=== PATIENT | female | born 1945 | race Caucasian/White ===

== ENCOUNTER 2020-05-31 08:22 | Outpatient (REF) | payer MEDICARE, SELFPAY ==
[2020-05-31 10:17] LABS: MANUAL DIFF FLAG NO
[2020-05-31 10:32] LABS: Basophils Percent Auto 0.4 % (0-2); Eosinophils Absolute Auto 0.8 X10*3/uL (0.0-0.4); Eosinophils Percent Auto 11.3 % (0-4); Hemoglobin 11.2 g/dl (12.0-16.0); Imm Gran Abs Auto 0.02 X10*3/uL (0.00-0.03); Imm Gran Pct Auto 0.3 % (0.0-0.4); Lymphocytes Absolute Auto 1.2 X10*3/uL (1.2-4.9); Lymphocytes Percent Auto 18.1 % (20-40); Mean Corpuscular Hemoglobin 29.3 pg (27.0-33.0); Mean Corpuscular Volume 91.6 fL (80-98); Mean Platelet Volume 10.1 fL (9.4-12.3); Monocytes Absolute Auto 0.5 X10*3/uL (0.1-1.2); Monocytes Percent Auto 7.4 % (2-11); Neutrophils Absolute Auto 4.2 X10*3/uL (2.0-8.3); Neutrophils Percent Auto 62.5 % (45-73); Platelet Count 265 X10*3/uL (160-400); Red Blood Count 3.82 X10*6/uL (4.20-5.50); Red Cell Distribution Width 14.2 % (11.0-16.0); White Blood Count 6.7 X10*3/uL (4.8-10.8)
[2020-05-31 11:17] LABS: Alanine Aminotransferase 14 U/L (0-31); Alkaline Phosphatase 78 U/L (39-117); Anion Gap 8 (12-20); Aspartate Amino Transferase 15 U/L (5-31); Bilirubin Total 0.6 mg/dL (0.0-1.0); Blood Urea Nitrogen 21 mg/dL (9-16); Calcium 9.3 mg/dL (8.4-10.2); Carbon Dioxide 34 mmol/L (22-29); Chloride 102 mmol/L (96-108); Cholesterol 133 mg/dL; Estimated Glomerular Filt Rate > 60; Glucose Fasting 101 mg/dL (60-99); HDL Cholesterol 40 mg/dL; LDL Cholesterol Calculated 68 mg/dl; Sodium 139 mmol/L (135-145); Total Protein 7.1 g/dL (6.5-8.0); Triglycerides 125 mg/dL
== END 2020-05-31 08:23 | disposition home or self-care (01) ==
LOC: CF 08:22
PROVIDERS: PCP Internal Medicine; Referring Provider Internal Medicine; Visit Provider Nurse Practitioner Family
DX: I48.0 Paroxysmal atrial fibrillation (principal); I10 Essential (primary) hypertension; E78.5 Hyperlipidemia, unspecified
CPT/HCPCS: 36415; 80053; 80061; 85025; 99214

== ENCOUNTER 2022-01-08 09:43 | Outpatient (REF) | payer MEDICARE, SELFPAY ==
[2022-01-08 12:15] LABS: Hematocrit 32.4 % (37.0-47.0); Hemoglobin 10.3 g/dl (12.0-16.0); Mean Corpuscular HGB Conc 31.8 g/dl (31.0-35.0); Mean Corpuscular Hemoglobin 29.7 pg (27.0-33.0); Mean Corpuscular Volume 93.4 fL (80.0-98.0); Platelet Count 257 X10*3/uL (160-400); Red Blood Count 3.47 X10*6/uL (4.20-5.50); Red Cell Distribution Width 13.7 % (11.0-16.0); White Blood Count 7.7 X10*3/uL (4.8-10.8)
[2022-01-08 13:00] LABS: Anion Gap 11 (12-20); Blood Urea Nitrogen 13 mg/dL (9-16); Calcium 8.9 mg/dL (8.4-10.2); Carbon Dioxide 28 mmol/L (22-29); Chloride 106 mmol/L (96-108); Estimated Glomerular Filt Rate > 60; Glucose Random 87 mg/dL (60-115); Sodium 140 mmol/L (135-145)
== END 2022-01-08 09:44 | disposition home or self-care (01) ==
LOC: HO.LAB 09:43
PROVIDERS: PCP Internal Medicine; Referring Provider Internal Medicine; Visit Provider Internal Medicine Cardiovascular Disease
DX: I48.0 Paroxysmal atrial fibrillation (principal); I73.9 Peripheral vascular disease, unspecified; I10 Essential (primary) hypertension
CPT/HCPCS: 36415; 80048; 85027; 93005; 99212

== ENCOUNTER → 2022-01-21 12:21 | Outpatient (BNV) | payer MEDICARE, SELFPAY | PROVIDERS: PCP Internal Medicine; Referring Provider Internal Medicine Cardiovascular Disease; Visit Provider Internal Medicine | DX: D64.9 Anemia, unspecified (principal) | CPT/HCPCS: 99204; 99213; 99214; G2211 ==

== ENCOUNTER 2022-02-20 12:24 | Outpatient (REF) | payer MEDICARE, SELFPAY ==
--- NOTE | ~2022-02-20 | US_ITS ---
EXAMINATION: Noninvasive assessment of the bilateral lower extremities with ARTERIAL DUPLEX ? CLINICAL INFORMATION: Peripheral vascular disease ? TECHNIQUE: Duplex Doppler techniques with waveform analysis and measurement of velocities in the bilateral common femoral, profunda femoris, superficial femoral, popliteal and tibial arteries were performed. ? COMPARISON: None ? FINDINGS: ? DIRECT DUPLEX DOPPLER FINDINGS: ? RIGHT LEG: Common femoral artery:?134 cm/s, phasicity: Biphasic Profunda femoris artery:??105 cm/s, phasicity: Biphasic Superficial femoral artery (proximal):?114 cm/s, phasicity: Biphasic Superficial femoral artery (mid):?161 cm/s, phasicity: Biphasic. Mild calcified plaque Superficial femoral artery (distal):?168 cm/s, phasicity: Biphasic Popliteal artery:?94.3 cm/s, phasicity: Biphasic Posterior tibial artery:?99 cm/s, phasicity: Biphasic Peroneal artery:?69.9 cm/s, phasicity: Biphasic ? LEFT LEG: Common femoral artery:?152 cm/s, phasicity: Biphasic Profunda femoris artery:?78?cm/s, phasicity: Biphasic Superficial femoral artery (proximal):?135?cm/s, phasicity: Biphasic Superficial femoral artery (mid):?165 cm/s, phasicity: Biphasic Superficial femoral artery (distal):?137?cm/s, phasicity: Biphasic Popliteal artery:?84.9?cm/s, phasicity: Biphasic. Mild calcified plaque Posterior tibial artery:?132?cm/s, phasicity: Biphasic Peroneal artery:?208 cm/s, phasicity: Biphasic Other: Hypoechoic areas seen in the deep to the femoral vessels likely representing an inguinal hernia with fluid ? ? US/US arterial duplex LE BI IMPRESSION: ? Patent arterial flow with normal velocities and waveforms throughout the bilateral lower extremities. Scattered areas of mild calcified plaque seen. No significant arterial stenosis or occlusion
== END 2022-02-20 12:25 | disposition home or self-care (01) ==
LOC: HO.US 12:24
PROVIDERS: Visit Provider Internal Medicine Cardiovascular Disease
DX: I73.9 Peripheral vascular disease, unspecified (principal); I25.10 Atherosclerotic heart disease of native coronary artery without angina pectoris
CPT/HCPCS: 93925

== ENCOUNTER → 2023-01-02 13:05 | Outpatient (REF) | payer MEDICARE, SELFPAY ==
--- NOTE | 2023-01-02 13:09 | CA_ITS ---
Transthoracic Echocardiogram Patient (Last, First, Middle): Millie Kimball, Gender: Female Date of : 1945 Age: 77 Procedure Date: 01/02/2023 Procedure Type: Transthoracic Echocardiogram Location: OP Height: 154.94 cm Weight: 61.24 kg BSA: 1.60 m2 Heart Rate: 63 bpm BP: 115 / 70 mmHg Law Clerk: JERAMIE Referring MD: Don Chao MD Symptoms: I48.0 - Paroxysmal atrial fibrillation Study Quality: Adequate ECG Rhythm: Sinus Conclusions: - Mildly increased left ventricular cavity size. There is mildly increased left ventricular wall thickness. The left ventricular systolic function is normal. The visually estimated ejection fraction is between 55-60%. - Normal right ventricular cavity size and systolic function. - The left atrium is moderately dilated. Findings Left Ventricle Mildly increased left ventricular cavity size. There is mildly increased left ventricular wall thickness. The left ventricular systolic function is normal. The visually estimated ejection fraction is between 55-60%. There is no evidence of regional wall motion abnormalities. Diastolic function is normal for age. GLS reduced -14%. Right Ventricle Normal right ventricular cavity size and systolic function. Atria The left atrium is moderately dilated. The right atrium is normal in size. Aortic Valve There is a normal trileaflet aortic valve. There is mild calcification of the aortic valve. There is no aortic valve stenosis. There is no aortic valve regurgitation. Mitral Valve The mitral valve appears normal. There is mild mitral annular calcification. There is trace mitral valve regurgitation. There is no mitral valve stenosis. Pulmonic Valve The pulmonic valve is likely normal. Tricuspid Valve Normal tricuspid valve structure and function. There is trace tricuspid valve regurgitation. Normal right atrial pressure. There is no evidence of pulmonary hypertension. Great Vessels All visible segments of the aorta are normal in size. The visualized portions of the pulmonary artery and branches are normal. Venous The inferior vena cava is normal in size and collapses greater than 50% with inspiration. Pericardium/Pleural There is no evidence of pericardial effusion. Prior Study Comparison No significant change compared to prior study dated: 05/24/2019. Measurements 2D Linear Measurements IVSd: 1.23 0.6-0.9/0.6-1.0 cm LVIDd: 5.35 3.9-5.3/4.2-5.9 cm LVIDd Index: 3.34 2.4-3.2/2.2-3.1 cm/m2 LVIDs: 3.32 2.0-3.6 cm LVPWd: 0.91 0.7-1.1 cm LA Diam: 4.20 2.7-3.8/3.0-4.0 cm LAIDs Index: 2.63 1.5-2.3 cm/m2 LV Mass: 278.09 67-162/88-224 g LV Mass Index: 173.81 43-95/49-115 g/m2 LVOT Diam: 2.10 3.0+(-)1.3 cm 2D Systolic Function EF 4C: 51.00 >55% EF 2C: 51.70 >55% EF BiP: 51.00 >55% Mitral Valve MV Pk E: 0.79 MV PK A: 0.47 MV Decel Time: 181.00 E/A: 1.70 E'Lateral: 9.57 E'Medial: 9.49 E/E' Med: 8.30 E/E' Lat: 8.30 PHT: 53.00 MVA PHT: 4.15 Decel Tillman: 4.38 Aortic Valve AoV Pk Asa: 1.35 AoV Mn Asa: 0.94 AoV VTI: 0.34 AoV Pk Grad: 7.00 Aov Mn Grad: 4.00 JIMMIE Cont.VTI: 2.31 LVOT LVOT Pk Asa: 0.84 LVOT Mn Asa: 0.65 LVOT VTI: 0.22 LVOT Pk Grad: 3.00 LVOT Mn Grad: 2.00 LVOT Diam: 2.10 LVOT Area: 3.46 Diastolic Function MV Pk E: 0.79 MV Pk A: 0.47 E/A: 1.70 E'Medial: 9.49 E/E' Med: 8.30 E' Laterial: 9.57 E/E' Lat: 8.30 Right Ventricle TAPSE (mm): 17.70 TVS' Saa: 9.32 Tricuspid Valve TR Pk Asa: 1.95 TR Pk Grad: 15.00 RA Press: 8.00 RVSP: 23.00 Great Vessels Aorta Sinus of Valsalva: 3.10 2.0-3.5 cm Ao Asc: 3.00 2.1-3.4 cm Pulmonary Valve PV Pk Asa: 0.84 Peak PV Grad: 3.00 Updated in Other Vendor System with Status of Final Emmett Monae MD electronically signed on 01/04/2023 8:43:21 PM with status of Final
== END ==
LOC: HO.CARD 13:05
PROVIDERS: Visit Provider Internal Medicine Cardiovascular Disease
DX: I48.0 Paroxysmal atrial fibrillation (principal)
CPT/HCPCS: 93306; 93356

== ENCOUNTER → 2023-01-21 09:03 | Outpatient (BNVA) | payer MEDICARE, SELFPAY | PROVIDERS: PCP Internal Medicine; Referring Provider Internal Medicine; Visit Provider Internal Medicine Cardiovascular Disease | DX: I48.0 Paroxysmal atrial fibrillation (principal); I10 Essential (primary) hypertension; Z79.01 Long term (current) use of anticoagulants; Z79.899 Other long term (current) drug therapy | CPT/HCPCS: 93005; 99212 ==

== ENCOUNTER 2024-01-26 08:23 | Outpatient (AMB) | payer MEDICARE, SELFPAY ==
[2024-01-26 08:24] VITALS: BP 124/66; PULSE 51; BMI 23.7
--- NOTE | 2024-01-26 08:24 | A.OFFVIS_ITS ---
Vital Signs 01/26/24 08:24 Height 5 ft 1 in Weight 125 lb 10.616 oz BMI 23.7 BP 124/66 Blood Pressure Location Lt brachial Position Sitting Pulse 51 Intake Visit Reasons: 1 yr f/up Intake Note: 1 year follow-up with ekg c/o [place]yer Required: No Fruit Stuffer: Fruit Stuffer Present Accompanied by: Spouse Allergies lisinopril Allergy (Severe, Verified 01/20/24 13:25) Cough metoclopramide [From Reglan] Allergy (Severe, Unverified 01/20/24 13:25) Anxiety mirabegron [From Myrbetriq] Allergy (Severe, Verified 01/20/24 13:25) Unknown solifenacin [Vesicare] Allergy (Severe, Verified 01/20/24 13:25) Unknown simvastatin [Simvastatin] Allergy (Intermediate, Unverified 01/20/24 13:25) HEADACHE ibuprofen Allergy (Unknown, Verified 01/20/24 13:25) Gastrointestinal Upset Medication List - Last Reconciled 01/26/24 by Don Chao MD aspirin (Adult Aspirin Regimen) 81 mg PO DAILY atorvastatin 20 mg PO DAILY citalopram 20 mg PO DAILY flecainide 100 mg PO BID lorazepam 0.5 mg PO BID PRN losartan 100 mg PO DAILY metoprolol succinate ER 25 mg PO DAILY oxybutynin chloride ER 15 mg PO DAILY HPI Comments Details: Millie Comes for follow-up. She is currently on Xarelto as she said that she would Watchman device placed last year at [facility]. No records available to me about the same. She also had a loop recorder placed at the same time, do not have any records from [facility] General including remote monitoring. She was told that she has lot of atrial arrhythmias. She continues to gets symptoms every other month with sudden-onset palpitations that last for few seconds. She is seems that this is atrial fibrillation. Again she has a monitor implanted without any records. She takes all her medications including current flecainide. She is on baby aspirin therapy at this point time. Denies any exertional chest pain or lightheadedness or syncope. Denies any shortness of breath, orthopnea, PND. [facility] Medical History Presence of Watchman left atrial appendage closure device HLD (hyperlipidemia) HTN (hypertension) Paroxysmal atrial fibrillation Surgical History Hx of toe surgery Hx of hand surgery Hx of appendectomy Hx of hysterectomy Family History Father CHF (congestive heart failure) SVT (supraventricular tachycardia) Diabetes Mother No problems noted. Brother Myocardial infarct Cancer Social History Household Members: Spouse Housing: House Patient Tobacco Use Status: Never used Tobacco service: No Current occupational status: retired Review of Systems Const Denies chills, Denies fatigue, Denies fever(s), Denies frequent falls, Denies weakness, Denies weight gain and Denies weight loss ENT Denies dizziness Card Denies chest pain, Denies leg edema, Denies lightheadedness, Denies palpitations, Denies dyspnea, Denies dyspnea on exertion, Denies orthopnea and Denies other (loss of consciousness) Resp Denies cough, Denies dyspnea and Denies dyspnea on exertion GI Denies hematochezia and Denies change in stool character Musc Denies abnormal gait, Denies muscle weakness, Denies numbness, Denies radiating pain into limb and Denies tingling Neuro Denies abnormal gait, Denies dizziness, Denies frequent falls, Denies numbness, Denies tingling and Denies weakness Endo Denies fatigue and Denies palpitations Physical Exam Vital Signs: Last Vital Signs Pulse 51 01/26/24 08:24 BP 124/66 01/26/24 08:24 BMI result Body Mass Index 23.7 Const General: cooperative, healthy appearing, comfortable and no acute distress HEENT Head: Yes normal to inspection Eyes Sclerae: sclerae normal Neck Neck: Yes normal visual inspection and Yes no JVD Carotids: normal carotid upstroke Chest Chest palpation & inspection: normal inspection of the chest Resp Effort & Inspection: normal respiratory effort Auscultation: clear to auscultation bilaterally, no crackles, no rales, no rhonchi and no wheezes Cardio Jugular venous distension: no JVD Rate: regular rate Rhythm: regular rhythm Heart sounds: S1 normal heart sound present, S2 normal heart sound present, no gallops, no murmurs and no rubs Peripheral pulses: Peripheral pulses 2+ throughout GI Inspection: Yes normal to inspection Skin General skin exam: no rashes or lesions noted Extrem General: Yes normal to inspection, No no pedal edema, No calf tenderness and Yes other (mild swelling around left lateral malleolus) Office Procedures EKG Details: EKG shows sinus bradycardia at 51 beats per minute [id number], Complete Assessment & Plan Assessment & Plan (1) Paroxysmal atrial fibrillation: Code(s): I48.0 - Paroxysmal atrial fibrillation Category: Medical Plan: Highly symptomatic paroxysmal atrial fibrillation with persistent episodes but infrequent and short lasting every couple of months. She has been monitored by manage General EP team with loop recorder. I do not have a copy of any of the remote monitoring. Will try to obtain the same. For now given infrequent symptoms with low burden would continue with current dose of flecainide. However she has more increasing symptoms will need to increase flecainide dose 150 mg b.i.d.. Continue current metoprolol therapy. Currently on aspirin therapy and status post Watchman device. Avoidance of stimulants was discussed. Stress mitigation strategies were discussed. (2) HTN (hypertension): Code(s): I10 - Essential (primary) hypertension Category: Medical Plan: Hypertension which is currently well optimized advised to monitor blood pressure at home and maintain a log. Goal blood pressure less than 130/84. Continue current therapy. Low-salt diet was discussed. Participate in stress mitigation strategies was discussed. Continue participate in regular physical activity. Follow up in 6 months for EKG. She will follow up next December at [facility] and I will see her Jun 2025. Coding Level of Care Code Est Pt Level 4 (21608) Diagnoses Paroxysmal atrial fibrillation I48.0 HTN (hypertension) I10 CPT Codes EKG - CPT: 83197-[id number], Complete ([id number])
== END 2024-01-26 09:16 | disposition home or self-care (01) ==
PROVIDERS: PCP Internal Medicine; Visit Provider Internal Medicine Cardiovascular Disease
DX: I48.0 Paroxysmal atrial fibrillation (principal); I10 Essential (primary) hypertension
CPT/HCPCS: 93010; 99214

== ENCOUNTER → 2024-01-26 08:23 | Outpatient (BNVA) | payer MEDICARE, SELFPAY | PROVIDERS: PCP Internal Medicine; Visit Provider Internal Medicine Cardiovascular Disease | DX: I48.0 Paroxysmal atrial fibrillation (principal); I10 Essential (primary) hypertension | CPT/HCPCS: 93005; 99212 ==

== ENCOUNTER → 2024-06-28 09:32 | Outpatient (BNVA) | payer MEDICARE, SELFPAY | PROVIDERS: PCP Internal Medicine; Visit Provider Internal Medicine Cardiovascular Disease ==

== ENCOUNTER 2025-06-01 08:38 | Outpatient (AMB) | payer MEDICARE, SELFPAY ==
--- OUTSIDE RECORDS SUMMARY | 2024-12-03 07:30 | XMS_ITS ---
Author Organization [facility] Address [address] [place] [address] Care Team Providers Care Road Train Driver Name Role Phone Max YU, Veronica Primary Care Provider Unavail ANGI Wilkes Unavailable [phone] REASON FOR VISIT Calcium Score $100 Encounters Encounter Location Date Provider Diagnosis [facility] [address] [place] [address] 12/03/2024 ANGI JEONG Plan Of Treatment Next Appt Details Provider Name:ANGI JEONG, 07/27/2025 10:00:00 AM, [address], [place], [address], Progress Notes * Millie KIMBALLDOB:1945 ([age] yo F)Acc No.[id number]:12/03/2024 Progress Note Patient: Millie LEES Provider: Fransisco Jeong M.D. :1945 A ge:79 Y S ex:Female Date:12/03/2024 Address:[address], [address], [id number] Pcp:eVronica Santana MD Subjective: * Chief Complaints: * 1 . Calcium Score $100. * Medical History: Objective: * Vitals: Assessment: Plan: * Treatment: * * Electronic signature of TATIANNA JEONG MD on 06/01/2025 at 09:22 AM EDT Sign off status: Pending * Provider: Fransisco Jeong M.D. Date: 0 12/03/2024 Generated for Printi ng/Faxing/eTransmitting on: 1 09:22 AM EDT
--- OUTSIDE RECORDS SUMMARY | 2024-12-15 09:30 | XMS_ITS ---
Author Organization [facility] Address [address] [place] [address] Care Team Providers Care Transportation Modeler Name Role Phone Max YU, Veronica Primary Care Provider Unavail ANGI Wilkes Unavailable [phone] REASON FOR VISIT PET SCAN NO CAFFEINE 24 HRS PRIOR AND FASTING 4 HOURS PRIOR Encounters Encounter Location Date Provider Diagnosis [facility] PET [address] [place] [address] 12/15/2024 ANGI JEONG Plan Of Treatment Next Appt Details Provider Name:ANGI JEONG, 07/27/2025 10:00:00 AM, [address], [place], [address], Progress Notes * Millie KIMBALLDOB:1945 ([age] yo F)Acc No.[id number]:12/15/2024 Progress Notes Patient: Millie LEES Provider: Fransisco Jeong M.D. :1945 A ge:79 Y S ex:Female Date:12/15/2024 Address:[address], [address], [id number] Pcp:Veronica Santana MD Subjective: * Chief Complaints: * 1 . PET SCAN NO CAFFEINE 24 HRS PRIOR AND FASTING 4 HOURS PRIOR. * Medical History: Objective: * Vitals: Assessment: Plan: * Treatment: * * Electronic signature of TATIANNA JEONG MD on 06/01/2025 at 09:23 AM EDT Sign off status: Pending * Provider: Fransisco Jeong M.D. Date: 0 12/15/2024 Generated for Tg billy/Bianca/Angeliitting on: 1 09:23 AM EDT
--- OUTSIDE RECORDS SUMMARY | 2024-12-19 04:30 | XMS_ITS ---
Author Organization [facility] Address [address] [place] [address] Care Team Providers Care Piercing Artist Name Role Phone Veronica Santana MD Primary Care Provider Unavail ANGI Wilkes Unavailable [phone] REASON FOR VISIT Echocardiogram: Test takes 30 minutes Encounters Encounter Location Date Provider Diagnosis [facility] ECHO [address] [place] [address] 12/19/2024 ANGI JEONG Plan Of Treatment Next Appt Details Provider Name:ANGI JEONG, 07/27/2025 10:00:00 AM, [address], [address], [place], [address], Progress Notes * Millie KIMBALLDOB:1945 ([age] yo F)Acc No.[id number]:12/19/2024 Patient: Millie LEES Provider: Fransisco Jeong M.D. :1945 A ge:79 Y S ex:Female Date:12/19/2024 Address:[address], [address], [id number] Pcp:Veronica Santana MD Subjective: * Chief Complaints: * 1 . Echocardiogram: Test takes 30 minutes. * Medical History: Objective: * Vitals: Assessment: Plan: * Treatment: * * Electronic signature of TATIANNA JEONG MD on 06/01/2025 at 09:14 AM EDT Sign off status: Pending * Provider: Fransisco Jeong M.D. Date: 0 12/19/2024 Generated for Printi ng/Faxing/eTransmitting on: 1 09:14 AM EDT
[2025-06-01 08:45] VITALS: BP 114/52; PULSE 57; BMI 23.4
--- NOTE | 2025-06-01 08:45 | MHC.OFFVIS ---
Vital Signs 06/01/25 08:45 Height 5 ft 1 in Weight 124 lb BMI 23.4 BP 114/52 L Blood Pressure Location Lt brachial Position Sitting Pulse 57 Pulse Source Monitor Intake Visit Reasons: 1 yr f/up Allergies lisinopril Allergy (Severe, Verified 06/01/25 08:48) Cough metoclopramide (From Reglan) Allergy (Severe, Verified 06/01/25 08:48) Anxiety mirabegron (From Myrbetriq) Allergy (Severe, Verified 06/01/25 08:48) Unknown solifenacin (Vesicare) Allergy (Severe, Verified 06/01/25 08:48) Unknown simvastatin (Simvastatin) Allergy (Intermediate, Verified 06/01/25 08:48) HEADACHE ibuprofen Allergy (Unknown, Verified 06/01/25 08:48) Gastrointestinal Upset nitroglycerin Adverse Reaction (Intermediate, Verified 06/01/25 08:49) Unknown Medication List - Last Reconciled 06/01/25 by Don Chao MD aspirin (Adult Aspirin Regimen) 81 mg PO DAILY atorvastatin 20 mg PO DAILY citalopram 20 mg PO DAILY flecainide 100 mg PO BID lorazepam 0.5 mg PO BID PRN losartan 100 mg PO DAILY metoprolol succinate ER 25 mg PO DAILY oxybutynin chloride ER 15 mg PO DAILY HPI Comments Details: Bryan comes for follow-up. She had testing done in [place] because it was available to her. She had no symptoms. She underwent a PET myocardial perfusion imaging which showed normal perfusion. Echocardiogram was done which showed normal LV ejection fraction without major valvular abnormality with moderate left atrial enlargement also reported as having a small membranous VSD. Patient has no new symptoms. She says has not been in atrial fibrillation. She does have fluttering in his chest and has PACs. She had a last EKGs done in [place] in February. She takes all her medications regularly. Remains active. Denies any heart failure symptoms. [facility] Medical History (Updated 06/01/25 @ 09:22 by Don Chao MD) Claudication Presence of Watchman left atrial appendage closure device HLD (hyperlipidemia) HTN (hypertension) Paroxysmal atrial fibrillation Surgical History Hx of toe surgery Hx of hand surgery Hx of appendectomy Hx of hysterectomy Family History Father CHF (congestive heart failure) SVT (supraventricular tachycardia) Diabetes Mother No problems noted. Brother Myocardial infarct Cancer Social History Household Members: Spouse Housing: House Patient Tobacco Use Status: Never used Tobacco service: No Current occupational status: retired Review of Systems ENT Reports dizziness Card Denies chest pain, Denies chest pain at rest, Denies chest pain with activity, Denies rapid heart rate, Denies pedal edema, Denies edema, Denies leg edema, Denies lightheadedness, Denies palpitations, Denies dyspnea, Denies dyspnea on exertion and Denies orthopnea Resp Denies cough, Denies dyspnea and Denies dyspnea on exertion GI Denies hematochezia and Denies change in stool character Musc Denies abnormal gait, Reports limited range of motion, Reports muscle cramps, Denies muscle weakness, Denies numbness, Denies radiating pain into limb, Denies stiffness and Denies tingling Neuro Denies abnormal gait, Reports dizziness, Denies numbness and Denies tingling Endo Denies palpitations Physical Exam Vital Signs: Last Vital Signs Pulse 57 06/01/25 08:45 BP 114/52 L 06/01/25 08:45 BMI result Body Mass Index 23.4 Const General: cooperative, healthy appearing, comfortable and no acute distress HEENT Head: Yes normal to inspection Eyes Sclerae: sclerae normal Neck Neck: Yes normal visual inspection and Yes no JVD Carotids: normal carotid upstroke Chest Chest palpation & inspection: normal inspection of the chest Resp Effort & Inspection: normal respiratory effort Auscultation: clear to auscultation bilaterally, no crackles, no rales, no rhonchi and no wheezes Cardio Jugular venous distension: no JVD Rate: regular rate Rhythm: abnormal rhythm with ectopic beats Heart sounds: S1 normal heart sound present, S2 normal heart sound present, no gallops, no murmurs and no rubs Peripheral pulses: Peripheral pulses 2+ throughout GI Inspection: Yes normal to inspection Skin General skin exam: no rashes or lesions noted Extrem General: Yes normal to inspection, No no pedal edema, No calf tenderness and Yes other (mild swelling around left lateral malleolus) Office Procedures EKG Details: EKG shows normal sinus rhythm with PACs otherwise normal EKG with normal axis and normal intervals [id number]-[id number], Complete Assessment & Plan Assessment & Plan (1) Paroxysmal atrial fibrillation: Code(s): I48.0 - Paroxysmal atrial fibrillation Category: Medical Plan: Paroxysmal atrial fibrillation status post Watchman device and currently on aspirin therapy. She has done well with rhythm control approach and on current flecainide therapy. Importance of every 6 months EKGs was discussed. She will pursue this in [place] in spring. Continue flecainide therapy and concomitant low-dose metoprolol therapy to reduce risk of rapid atrial flutter. This was discussed with her. Continue to avoid stimulants. Stress mitigation strategies were discussed. She is very worried about her 's health. (2) HTN (hypertension): Code(s): I10 - Essential (primary) hypertension Category: Medical Plan: Hypertension which is currently well optimized on current therapy with metoprolol as well as losartan. Importance of good blood pressure control was discussed. Target goal blood pressure less than 130/84. Low-salt diet was discussed. Aggressive lifestyle modification with continued exercise and maintenance of weight was discussed. Stress mitigation strategies were discussed. Recent myocardial perfusion imaging with PET scan was within normal limits and this was discussed with her. She is currently on statin therapy. Target goal LDL less than 100 mg/dL. Will follow up in the clinic in 1 year's time, sooner p.r.n.. Thank you for allowing me to partake in her care Coding Level of Care Code Est Pt Level 4 (62398) Complex EM visit Add On G2211 Diagnoses Paroxysmal atrial fibrillation I48.0 HTN (hypertension) I10 CPT Codes EKG - CPT: 35271-Rctispnxbdtjwcywp, Complete ([id number])
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
--- OUTSIDE RECORDS SUMMARY | 2025-06-01 09:14 | XMS_ITS | Encounter Summary ---
Author Organization [facility] Address [address] [place] [address] Phone Care Team Providers Care Comber Setter Name Role Phone Parish Strauss MD Primary Care Provider [phone] Christiano Hargrove MD Unavailable [phone] Craig Porter MD Unavailable [phone] Michelle Kwong MD Unavailable [phone] Encounter Details Date Type Department Care Team (Late st Contact Info) Description 02/24/[address] [facility] [address] [facility], [address] [place], [place] [id number] Social History Tobacco Use Types Packs/Day Years Used Date Smoking Tobacco: Never Smokeless Tobacco: Never Alcohol Use Standard Drinks/Week Comments Yes 0 (1 standard drink = 0.6 oz pur e alcohol) rarely Education Answer Date Recorded Are you interested in more education? Not on denis e 12/12/2022 Are you concerned about learning? Not on file 12/12/2022 No 12/12/2022 No 12/12/2022 Digital Access Answer Date Recorded No 01/06/2023 No 01/06/2023 Reliable internet access at home? Not on file 01/06/2023 Device with a working camera? Not on file Intimate Partner Violence Answer Date R ecorded Denied Basic Needs Not on file 01/13/2025 In the past 12 months have y ou been in a relationship with a person who hurts, threatens, or tries to control you? No 01/13/2025 Worried food would run out Not on file 01/13 In the past 12 months have y ou been in a relationship with a person who hurts, threatens, or tries to control you? No 01/13/2025 Comments Unknown Sex and Gender Information Value Date Recorded Sex Assigned at Female 12/21/2019 10:03 AM EDT Legal Sex Female 8:13 PM EST Gender Identity Female 12/21/2019 10:03 AM EDT Sexual Orientation Not on file documented as of this encounter Plan of Treatment Upcoming Encounters Date Type Department Care Team (Late st Contact Info) Description 12/26/[address] [facility] [address], [address] [place] [address] 01/26/[address] [facility] [address] [address], [address] [place] [address] 02/24/[address] [facility] [address], [address] [place] [address] 03/29/[address] [facility] [address] [address], [address] [place] [address] 04/28/[address] [facility] [address], [address] [place] [address] 05/30/[address] [facility] [address], [address] [place] [address] 05/30/[address] [facility] [address], [address] [place] [address] 06/28/2025 11:[address] [facility] [address], [address] [place] [address] Sky Castano MD, PhD [address] [facility] [address] [place] [address] [email or web address] 07/29/2025 10:[address] [facility] [address], [address] [place] [address] Sky Castano MD, PhD [address] [facility] [address] [place] [address] [email or web address] 08/29/2025 10:[address] [facility] [address] [facility], [address] [place] [address] Sky Castano MD, PhD [address] [facility] [address] [place] [address] [email or web address] 01/17/2026 9:00 AM EDT Office Visit [facility] Internal Medicine 40 [place] [address] Parish Strauss MD 40 [place] [address] [email or web address] 03/13/2026 11:30 AM EDT Office Visit [facility]hythmia Service [address] [facility], 5th Floor, [address] [place] [address] Charla Darden PA-C [address], [place] [address] [email or web address] documented as of this encounter Visit Diagnoses Not on filedocumented in this encounter Additional Health Concerns Assessment Noted Time PHQ-2 Depression Total Score: 0 01/14/20 25 8:27 AM EDT documented as of this encounter Care Teams Comber Setter Relationship Specialty Start Date End Date Parish Strauss MD [address] [place] [address] [phone] [email or web address] PCP - General 02/14/14 Christiano Hargrove MD [address] [place] [address] [address] [place] [address] Gastroenterology 01/13/20 Craig Porter MD [address] [facility] [address] [place] [address] [email or web address] Urology 12/28/20 Michelle Kwong MD [address] [place] [address] Drive [address] [place] [address] Obstetrics and Gynecology 12/28/20 documented as of this encounter Additional Source Comments The information contained in this document represents components of the legal health record. It is not the complete legal health record.[facility]
--- OUTSIDE RECORDS SUMMARY | 2025-06-01 09:14 | XMS_ITS | Encounter Summary ---
Author Organization [facility] Address [address] [facility] [address] [place] [address] Phone Care Team Providers Care Cotton Stomper Name Role Phone Parish Strauss MD Primary Care Provider [phone] Christiano Hargrove MD Unavailable [phone] Craig Porter MD Unavailable [phone] Michelle Kwong MD Unavailable [phone] Parish Strauss MD Unavailable [phone] Encounter Details Date Type Department Care Team (Late st Contact Info) Description 11/18/2023 Procedure Pass [facility] [address] [facility], [address] [place] [address] Social History Tobacco Use Types Packs/Day Years Used Date Smoking Tobacco: Never Smokeless Tobacco: Never Alcohol Use Standard Drinks/Week Comments No 0 (1 standard drink = 0.6 oz pur e alcohol) Education Answer Date Recorded Are you interested in more education? Not on denis e 12/12/2022 Are you concerned about learning? Not on file 12/12/2022 No 12/12/2022 No 12/12/2022 Digital Access Answer Date Recorded No 01/06/2023 No 01/06/2023 Reliable internet access at home? Not on file 01/06/2023 Device with a working camera? Not on file Comments Unknown Sex and Gender Information Value Date Recorded Sex Assigned at Female 12/21/2019 10:03 AM EDT Legal Sex Female 8:13 PM EST Gender Identity Female 12/21/2019 10:03 AM EDT Sexual Orientation Not on file documented as of this encounter Plan of Treatment Upcoming Encounters Date Type Department Care Team (Late st Contact Info) Description 12/26/2024 Procedure Pass [facility] [address], [address] [place] [address] 01/26/2025 Procedure Pass [facility] [address], [address] [place] [address] 02/24/2025 Procedure Pass [facility] [address] [address], [address] [place] [address] 03/29/2025 Procedure Pass [facility] [address], [address] [place] [address] 04/28/2025 Procedure Pass [facility] [address], [address] [place] [address] 05/30/2025 Procedure Pass [facility] [address] [address], [address] [place] [address] 05/30/2025 Procedure Pass [facility] [address], [address] [place] [address] 06/28/2025 11:00 AM EST Appointment [facility] [address], [address] [place] [address] Sky Castano MD, PhD [address] [place] [address] [email or web address] 07/29/2025 10:00 AM EST Appointment [facility] [address] [address], [address] [place] [address] Sky Castano MD, PhD [address] [place] [address] [email or web address] 08/29/2025 10:00 AM EST Appointment [facility] [address] [facility], [address] [place] [address] Sky Castano MD, PhD [address] [facility] [address] [place] [address] [email or web address] 01/17/2026 9:00 AM EDT Office Visit [facility] Internal Medicine 40 [place] [address] Parish Strauss MD 40 [place] [address] [email or web address] 03/13/2026 11:30 AM EDT Office Visit [facility]hythmia Service [address] [facility], 5th Floor, [address] [place] [address] Charla Darden PA-C [address], [place] [address] [email or web address] documented as of this encounter Visit Diagnoses Not on filedocumented in this encounter Additional Health Concerns Assessment Noted Time PHQ-2 Depression Total Score: 0 01/21/20 23 8:51 AM EDT documented as of this encounter Care Teams Cotton Stomper Relationship Specialty Start Date End Date Parish Strauss MD 40 [place] [address] [email or web address] PCP - General 02/14/14 Christiano Hargrove MD [address] [place] [address] Gastroenterology 01/13/20 Craig Porter MD [address] [facility] 120 [place] [address] [email or web address] Urology 12/28/20 Michelle Kwong MD [address] [place] [address] [address] [place] [address] Obstetrics and Gynecology 12/28/20 Parish Strauss MD [address] [place] [address] [email or web address] Insurance Assigned Provider 11/21/23 08/22/24 documented as of this encounter Additional Source Comments The information contained in this document represents components of the legal health record. It is not the complete legal health record.[facility]
--- OUTSIDE RECORDS SUMMARY | 2025-06-01 09:14 | XMS_ITS | Encounter Summary ---
Author Organization [facility] Address [address] [place] [address] [place] [address] Phone Care Team Providers Care Intern Product Marketing Manager Name Role Phone Parish Strauss MD Primary Care Provider [phone] Chritsiano Hargrove MD Unavailable [phone] Craig Porter MD Unavailable [phone] Michelle Kwong MD Unavailable [phone] Parish Strauss MD Unavailable [phone] Encounter Details Date Type Department Care Team (Late st Contact Info) Description 03/26/2023 Procedure Pass [facility] EP Pacer Lab [address] [facility], Floor 1, [address] [place] [address] Social History Tobacco Use Types Packs/Day Years [...] on file documented as of this encounter Functional Status * Calculated C-SSRS Risk Score (Lifetime/Recent) Answer Date of Assessment Author No Risk Indicated 03/26/2023 6:42 PM EDT Diego Fonseca RN * [place] Suicide Severity Rating Scale (Screener/Recent Self-Report) Question Answer Date of Assessment Author 1. Wish to be (Past 1 Month) No 03/26/2023 6:42 PM EDT Diego Ellis RN 2. Non-Specific Active Suicidal Thoughts (Past 1 Month) No 03/26/2023 6:42 PM EDT Diego Ellis RN 6. Suicidal Behavior (Lifetime) No 03/26/2023 6:42 PM EDT Diego Ellis RN documented as of this encounter Plan of Treatment Upcoming Encounters Date Type Department Care Team (Late st Contact Info) Description 12/26/2024 Procedure Pass [facility] Cardiology Division [address], [address] [place] [address] 01/26/2025 Procedure Pass [facility] Cardiology Division [address] [address], [address] [place] [address] 02/24/2025 Procedure Pass [facility] Cardiology Division [address], [address] [place] [address] 03/29/2025 Procedure Pass [facility] Cardiology Division [address] [address], [address] [place] [address] 04/28/2025 Procedure Pass [facility] Cardiology Division [address] [address], [address] [place] [address] 05/30/2025 Procedure Pass [facility] Cardiology Division [address], [address] [place] [address] 05/30/2025 Procedure Pass [facility] Cardiology Division [address], [address] [place] [address] 06/28/2025 11:00 AM EST Appointment [facility] Cardiology Division [address] [facility], [address] [place] [address] Sky Castano MD, PhD [address] [address] [email or web address] 07/29/2025 10:00 AM EST Appointment [facility] Cardiology Division [address] [facility], [address] [place] [address] Sky Castano MD, PhD [address] [address] [email or web address] 08/29/2025 10:00 AM EST Appointment [facility] Cardiology Division [address] [facility], [address] [place] [address] Sky Castano MD, PhD [address] [place] [address] [email or web address] 01/17/2026 9:00 AM EDT Office Visit [facility] Internal Medicine [address] [place] [address] Parish Strauss MD 40 [place] [address] [email or web address] 03/13/2026 11:30 AM EDT Office Visit [facility] Cardiac Arrhythmia Service 32 [facility], 5th Floor, [address] [place] [address] Charla Darden PA-C [address] [place] [address] [email or web address] documented as of this encounter Visit Diagnoses Not on filedocumented in this encounter Additional Health Concerns Assessment Noted Time PHQ-2 Depression Total Score: 0 01/21/20 23 8:51 AM EDT documented as of this encounter Care Teams Intern Product Marketing Manager Relationship Specialty Start Date End Date Parish Strauss MD 40 [place] [address] [email or web address] PCP - General 02/14/14 Christiano Hargrove MD [address] [place] [address] Drive [address] [place] [address] Gastroenterology 01/13/20 Craig Porter MD 100 [facility] 120 [place] [address] [email or web address] Urology 12/28/20 Michelle Kwong MD [address] [place] [address] Drive [address] [place] [address] Obstetrics and Gynecology 12/28/20 Parish Strauss MD 40 [place] [address] [email or web address] Insurance Assigned Provider 11/21/23 08/22/24 documented as of this encounter Additional Source Comments The information contained in this document represents components of the legal health record. It is not the complete legal health record.[facility]
--- OUTSIDE RECORDS SUMMARY | 2025-06-01 09:14 | XMS_ITS | Encounter Summary ---
Author Organization [facility] Address [address] [place] [address] Phone Care Team Providers Care Glass Cutting Machine Feeder Name Role Phone Parish Strauss MD Primary Care Provider Christiano Hargrove MD Unavailable [phone] Craig Porter MD Unavailable [phone] Michelle Kwong MD Unavailable [phone] Encounter Details Date Type Department Care Team (Late st Contact Info) Description 01/26/2025 Procedure Pass [facility] Cardiology Division [address] [facility], [address] [place], [place] [phone] Social History Tobacco Use Types Packs/Day Years [...] st Contact Info) Description 12/26/2024 Procedure Pass [facility] Cardiology Division [address], [address] [place] [address] 01/26/2025 Procedure Pass [facility] Cardiology Division [address] [address], [address] [place] [address] 02/24/2025 Procedure Pass [facility] Cardiology Division [address], [address] [place] [address] 03/29/2025 Procedure Pass [facility] Cardiology Division [address] [address], [address] [place] [address] 04/28/2025 Procedure Pass [facility] Cardiology Division [address], [address] [place] [address] 05/30/2025 Procedure Pass [facility] Cardiology Division [address], [address] [place] [address] 05/30/2025 Procedure Pass [facility] Cardiology Division [address], [address] [place] [address] 06/28/2025 11:00 AM EST Appointment [facility] Cardiology Division [address], [address] [place] [address] Sky Castano MD, PhD 55 [facility] 800 [place] [address] [email or web address] 07/29/2025 10:00 AM EST Appointment [facility] Cardiology Division [address], [address] [place] [address] Sky Castano MD, PhD 55 [facility] 800 [place] [address] [email or web address] 08/29/2025 10:00 AM EST Appointment [facility] Cardiology Division [address] [facility], [address] [place] [address] Sky Castano MD, PhD [address] [facility] 800 [place] [address] [email or web address] 01/17/2026 9:00 AM EDT Office Visit [facility] Internal Medicine 40 [place] [address] Parish Strauss MD 40 [place] [address] 03/13/2026 11:30 AM EDT Office Visit [facility] Cardiac Arrhythmia Service 32 [facility], 5th Floor, [address] [place] [address] Charla Darden PA-C [address], [place] [address] documented as of this encounter Visit Diagnoses Not on filedocumented in this encounter Additional Health Concerns Assessment Noted Time PHQ-2 Depression Total Score: 0 01/14/20 25 8:27 AM EDT documented as of this encounter Care Teams Glass Cutting Machine Feeder Relationship Specialty Start Date End Date Parish Strauss MD [address] [place] [phone] PCP - General 02/14/14 Christiano Hargrove MD [address] [place] [address] [address] [place] [address] Gastroenterology 01/13/20 Craig Porter MD [facility] [address] [place] [address] [email or web address] Urology 12/28/20 Michelle Kwong MD [address] [place] [address] Drive [address] [place] [address] Obstetrics and Gynecology 12/28/20 documented as of this encounter Additional Source Comments The information contained in this document represents components of the legal health record. It is not the complete legal health record.[facility]
--- OUTSIDE RECORDS SUMMARY | 2025-06-01 09:14 | XMS_ITS | Clinical Summary ---
Author Organization [facility] Address [address] [place] [phone] Phone Care Team Providers Care Forest Economics Professor Name Role Phone Parish Strauss MD Primary Care Provider [phone] Christiano Hargrove MD Unavailable Craig Porter MD Unavailable [phone] Michelle Kwong MD Unavailable Allergies Active Allergy Reactions Criticality Noted Date Comments Ibuprofen Other (See Comments) 12/01/2008 esophagitis; Other reaction(s): ES - Esophageal spasm Lansoprazole Unknown 08/18/2008 Lisinopril Other (See Comments),Cough 08/18/2008 cough; Metoclopramide Other (See Comments) 08/18/2008 'feeling of doom'; Metronidazole 01/14/2022 Other reaction(s): Severe diarrhea Mirabegron 02/04/2021 Other reaction(s):urinary bleeding Nitroglycerin Syncope High 01/13/2020 Other reaction(s): Hypotensive syncope Reglan (Metoclopramide Hcl) 12/12/2015 Simvastatin Headaches,Pain Low 08/18/2008 Vesicare (Solifenacin) Other (See Comments) 03/26/2015 bleeding Medications oxybutynin (DITROPAN XL) 15 MG 24 hr tablet Take 15 mg by mouth daily. Active calcium carbonate-vitam in D3 1,500 mg (600 mg elemental)-200 units Tab Take 1 tablet by mouth 2 (two) times a day with meals. Active multivitamin per tablet 1 TAB Orally DAILY Active esomeprazole (NEXIUM) 20 MG capsule 1 capsule Orally daily or bid prn Active FLAXSEED ORAL Take 1 capsule by mouth daily. Active estradioL (ESTRACE) 0.01 % (0.1 mg/gram) vaginal cream Place 2 g vaginally 2 (two) times a week. 12/17/19 21 Active psyllium (METAMUCIL) 3.4 gram packet Take 1 packet by mouth daily as needed. Active amoxicillin (AMOXIL) 500 MG capsule DIRECTED 4 CAPSULE 1 HOUR PRIOR TO DENTAL PROCEDURE 01/02/20 22 Active docusate sodium (COLACE) 100 MG capsule Take 200 mg by mouth nightly at bedtime. Active chlorhexidine (PERIOGARD) 0.12 % solution Swish and spit 15 mL daily. Active LORazepam (ATIVAN) 0.5 MG tabletIndicatio ns:Anxiety Take 1 tablet (0.5 mg total) by mouth daily as needed for anxiety. 1-2 tablets Orally DAILY PRN 15 tablet 1 01/21/20 23 Active fluoride, sodium, (PREVIDENT 5000 BOOSTER) 1.1 % Pste 1 Application nightly at bedtime. 04/26/20 24 Active traZODone (DESYREL) 50 MG tabletIndicatio ns:Anxiety Take 1 tablet (50 mg total) by mouth nightly at bedtime. 90 tablet 3 01/14/20 25 Active aspirin 81 MG EC tablet Take 81 mg by mouth daily. Active flecainide (TAMBOCOR) 100 MG tabletIndicatio ns:Atrial fibrillation Take 1 tablet (100 mg total) by mouth 2 (two) times a day. 180 tablet 3 03/07/20 25 Active metoprolol succinate (TOPROL-XL) 25 MG 24 hr tabletIndicatio ns:Hypertension Take 1 tablet (25 mg total) by mouth daily. 90 tablet 3 03/07/20 25 Active atorvastatin (LIPITOR) 20 MG tabletIndicatio ns:Hyperlipidem ia TAKE 1 TABLET DAILY 90 tablet 3 03/13/20 25 Active losartan (COZAAR) 100 MG tabletIndicatio ns:Hypertension TAKE 1 TABLET DAILY 90 tablet 05/09/20 25 Active citalopram (CELEXA) 20 MG tabletIndicatio ns:Anxiety TAKE 1 TABLET DAILY 90 tablet 3 05/09/20 25 Active losartan (COZAAR) 100 MG tabletIndicatio ns:Hypertension take 1 tablet daily 90 tablet 3 05/16/20 24 025 Discontinued citalopram (CELEXA) 20 MG tabletIndicatio ns:Anxiety TAKE 1 TABLET DAILY 90 tablet 3 07/25/20 24 025 Discontinued Active Problems Problem Noted Date Diagnosed Date Asymptomatic ventricular septal defect Overview (03/09/2025): TTE 01/13/25 (scanned into Media) done for routine surveillance given Flecainide use showed a small membranous infracristal VSD with left to right shunt. RVSP 56. Last echo was 2014 and did not report this. Assessment & Plan (03/09/2025 5:14 PM EDT): Millie has no sx of CHF I.e no leg swelling, SOB, ALAS. Reviewed echo with Sky Castano MD who suspected this was age related and given no sx unlikely to be concerning - but recommend she discuss with her general road crew member as it is not our area of expertise in EP. She did discuss this with her general road crew member in [place] who told her she should ask us, she has not met with her general road crew member in [facility] yet. As we are unclear what monitoring or additional testing should be done for this (though reassured by like of sx) we will E-Consult cardiology for formal guidance. 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 Osteoarthritis 03/09/2018 Reflex sympathetic dystrophy 12/12/2015 Overview (12/12/2015): Planning a series of injections with her pain clinic Paroxysmal atrial fibrillation 12/06/2015 Overview (03/06/2025): Dx 2007 Started on Flec 2007 and underwent PVI 12/07/2008 Did well post PVI for a long nakul, ultimately Dilt, Flec, able to be stopped. 11/2015 - palpitations recurred and Toprol resumed 11/2016 - Flec resumed 50 BID Documented recurrence AF 01/2017 [facility]. Flec increased to 100 BID ILR placed 06/2019 after multiple falls 03/2023 s/p Watchman device as continued to have falls despite PT and no arrhythmias on ILR 04/2023 old ILR explanted, new ILR (MDT) placed per preference 06/2023 On baby ASA only for AF given s/p CHRIS closure TTE 12/19/24 (Media tab): EF 55-60%, small membranous VSD with L-->R shunt, ash 03/23, LA AP 47, TAO 47 PET Perfusion 01/13/25 - EF 63%, stress EF 70%, negative for ischemia, normal coronary flow Assessment & Plan (03/09/2025 5:11 PM EDT): No AF per sx nor ILR. Remains on Flecainide and Toprol with good effect. Her EKG intervals are stable and she has CrCl 45 and normal EF as well as no w/o ischemia on Perfusion testing. Will continue current regimen. Assessment & Plan (03/02/2024 9:21 PM EDT): No AF on ILR. Remains on Flecainide and Toprol w/o issue. Given Class Ic agent will see if [facility] can do a stress echo sometime this year which will serve to evaluate for any occult ischemia and and assess LVEF and wall size to ensure she remains safe on Flecainide. Will recommend holding the flecainide and metoprolol 24 hours prior to testing. Recommended she find the report with blockage in her leg so we can see if it is something that needs general cardiology vs. Vascular. SHe will look for it. She gets yearly labwork with PCP which we will also follow to ensure remains safe on Flecainide in that regard as well. Assessment & Plan (05/16/2023 8:25 PM EDT): No AF/AFl throughout almost 4 years of ILR monitoring, though believes she did have first recurrence in about 6 years (since increasing Flec to 100 bid in 2017) last weekend. Her ILR stopped transmitted 04/13/23/reached EOS so unfortunately episode not captured. She is also fortunately s/p watchman now (for frequent falls) and has recovered well. Had her DEIDRA this morning - Well seated left atrial appendage occlusion device (31mm Watchman) without residual flow or device-associated thrombus. Per discharge summary 3 months Xarelto 20mg daily (unclear why dose increased, I will ask) and then baby ASA. She has previously had GI issues on aspirin though is willing to try it again. Will ask Dr. Arreola would he would recommend as alternative if she cannot tolerate it (? Plavix) and if that could be stopped potentially in the future. For now though she will continue the Xarelto as prescribed until 3 months post-implant (06/27/23) She is scheduled for ILR exchange later as her current one is at EOS and she prefers to have another implanted, which is reasonable as will be helpful to monitor her AF burden especially if we need to consider stopping baby ASA at some point. Assessment & Plan (02/26/2023 9:01 PM EDT): Excellent rhythm control on Flecainide - no AF alerts in the whole life of the ILR (placed 2018). ECG intervals are stable and she had a reassuring MIBI in 2020. Will continue current regimen. In regards to her anticoagulation, she unfortunately continues to have issues with falls and given her Ncewq-4-Iuas of 4 she does have an indication for lifelong anticoagulation. We will have Dr. Tonia Arreola (who performs the watchman procedure) review her case. We suspect Plavix can be used instead of aspirin, but defer to his judgement. We would need to do the procedure prior to 04/2023 as she would need to be her 6 weeks post-op for a DEIDRA (to confirm appropriate epithelization and assess for leak). I suspect do not have any openings prior to then, but will double check with Dr. Arreola and our EP lab. She is okay with waiting until she returns next Spring/Summer. Discussed she has never had any concerning arrhythmias that have correlated with her falls, but there is still benefit to the ILR as it is monitoring AF burden (which is fortunately non existent at the moment on Flecainide). Would leave it in until it reaches end of battery then we can reassess removal vs. Re-implant. Lastly, her CrCl is 45, previously 48. I will reduce her Xarelto to 15mg daily. Benign essential hypertension 12/06/2015 Overview (12/06/2015): Well controlled. Loss of consciousness 12/06/2015 Overview (12/06/2015): without recurrence. Likely due to slipping and falling. Anxiety 12/06/2015 Encounters Date Type Department Care Team Description 05/28/2025 1:00 PM EDT - 05/28/2025 11:59 PM EDT Hospital Encounter [facility] Cardiology Division [address] [facility], [address] [place] [address] Sky Castano MD, PhD Arrived Discharge Disposition: Home or Self Care 05/17/2025 1:27 PM EDT - 05/17/2025 11:59 PM EDT Hospital Encounter [facility] [address] [place] [address] Parish Strauss MD Discharge Disposition: Home or Self Care 05/09/2025 [facility] [address] [place] [address] Mat Tijerina MD Medication Refill 05/09/2025 [facility]ill [facility] [address] [place] [address] Parish Strauss MD Medication Refill 04/28/2025 Procedure Pass [facility] Cardiology Division [address] [facility], [address] [place] [address] 04/27/2025 3:00 PM EDT - 04/27/2025 11:59 PM EDT Hospital Encounter [facility] Cardiology Division [address] [facility], [address] [place] [address] Sky Castano MD, PhD Discharge Disposition: Home or Self Care 03/29/2025 Procedure Pass [facility] Cardiology Division [address] [facility], [address] [place] [address] 03/27/2025 8:00 AM EDT - 03/27/2025 11:59 PM EDT Hospital Encounter [facility] Cardiology Division [address] [facility], [address] [place] [address] Sky Castano MD, PhD Discharge Disposition: Home or Self Care 03/21/2025 E-Consult [facility] Cardiology [address] [place] [address] Ashwini Cai MD 03/20/2025 Orders Only [facility] Internal Medicine [address] [place] [address] Adan Johnson MD 03/13/2025 Refill [facility] [address] [place] [address] Parish Strauss MD Medication Refill 03/07/2025 10:30 AM EDT Office Visit [facility] Cardiac Arrhythmia Service [address] [facility], 5th [address], [address] [place] [address] Autumn Darden PA-C Paroxysmal atrial fibrillation (Primary Dx); Atrial fibrillation; Hypertension; Asymptomatic ventricular septal defect 02/24/2025 Procedure Pass [facility] Cardiology Division [address] [facility], [address] [place] [address] from Last 3 Months Immunizations Immunization Administration Dates Next Due COVID-19 (Pre-06/08) Moderna Vaccine, mRNA, PF 05/29/2023 COVID-19 (Pre-06/08) Pfizer Vaccine, Bivalent 12+ 12/03/2021 COVID-19 (Pre-06/08) Pfizer Vaccine, mRNA, PF 12/03/2021,09/26/2020,09/05/2020 COVID-19, Unspecified Formulation 07/25/2022 INFLUENZA, SPLIT VIRUS, TRIVALENT PF 05/21/2015 Influenza High-Dose Quadriva lent Preservative Free IM 04/28/2023,05/17/2021,06/08/2020 Influenza High-Dose Trivalen t Preservative Free IM 04/24/2024 Influenza Quadrivalent Adjuv anted Preservative Free IM 04/26/2022 Influenza Quadrivalent Prese rvative Free IM 05/17/2019,05/27/2017 Influenza Trivalent Adjuvant ed Preservative free IM 06/06/2018 Pneumococcal conjugate PCV13 02/01/2015 Pneumococcal polysaccharide PPSV23 07/16,05/27/2011,06/06/2008,05/17 RSV Vaccine, Unspecified 06/11/2023 Td (adult) 5 Lf Tetanus Toxo id, PF, Adsorbed 04/17/2002 Tdap 02/04/2023,07/16/2012 Zoster live 08/17/2007 Zoster recombinant 07/19/2020,05/01/2020 Family History Medical History Relation Comments Coronary artery disease Brother 1 Heart attack Brother 1 Diabetes Father Heart disease Father Alzheimer's disease Mother Parkinson's disease Mother Uterine cancer Mother Brain cancer Sibling 1 Rectal cancer Sibling 1 Relation Status Comments Brother 1 Brother 2 Alive Brother 3 Alive Father (Age 75) Mother (Age 77) Sibling 1 (Age 35) Sibling 2 Alive Sister (Age 35) Social History Tobacco Use Types Packs/Day Years [...] AM EDT Sexual Orientation Not on file Last Filed Vital Signs Vital Sign Reading Time Taken Comments Blood Pressure 148/63 03/07/2025 10:25 AM EDT Pulse 58 03/07/2025 10:25 AM EDT Temperature 36.7 C (98 F) 01/13/2025 8:32 AM EDT Respiratory Rate 16 01/13/2025 8:32 AM EDT Oxygen Saturation 100% 01/13/2025 8:32 AM EDT Inhaled Oxygen Concentration - - Weight 56.7 kg (125 lb) 03/07/2025 10:25 AM EDT Height 153.2 cm (5' 0.32 ) 01/13/2025 8:32 AM ED T Body Mass Index 24.16 01/13/2025 8:32 AM EDT Plan of Treatment Upcoming Encounters Date Type Department Care Team (Late st Contact Info) Description 12/26/2024 Procedure Pass [facility] Cardiology Division [address] [facility] [place] [address] 01/26/2025 Procedure Pass [facility] Cardiology Division [address] [facility] [address] [place] [address] 02/24/2025 Procedure Pass [facility] Cardiology Division [address] [facility] [facility], [address] [place] [address] 03/29/2025 Procedure Pass [facility] Cardiology Division [address] [facility] [facility], [address] [place] [address] 04/28/2025 Procedure Pass [facility] Cardiology Division [address] [place] [facility], [address] [place] [address] 05/30/2025 Procedure Pass [facility] Cardiology Division [address] [facility], [address] [place] [address] 05/30/2025 Procedure Pass [facility] Cardiology Division [address] [facility], [address] [place] [address] 06/28/2025 11:00 AM EST Appointment [facility] Cardiology Division [address] [facility], [address] [place] [address] Sky Castano MD, PhD [address] [facility] [address] [place] [address] [email or web address] 07/29/2025 10:00 AM EST Appointment [facility] Cardiology Division [address] [facility], [address] [place] [address] Sky Castano MD, PhD [address] [place] [email or web address] 08/29/2025 10:00 AM EST Appointment [facility] Cardiology Division [address] [facility], [address] [place] [address] Sky Castano MD, PhD [address] [place] [email or web address] 01/17/2026 9:00 AM EDT Office Visit [facility] Internal Medicine [address] [place] [address] Parish Strauss MD [address] [place] [address] [email or web address] 03/13/2026 11:30 AM EDT Office Visit [facility] Cardiac Arrhythmia Service [address] [facility], 5th [address], [address] [place] [address] Autumn Darden PA-C [address] [place] [address] [email or web address] Health Maintenance Due Date Last Done Comments COLOGUARD 1989 FOBT 1989 SIGMOIDOSCOPY 1989 VIRTUAL COLONOSCOPY 1989 FIT TEST 01/23/2023 01/23/2022 INFLUENZA VACCINE (#1) 2025 , 04/28/2023, 04/26/2022, Additional history exists COVID-19 VACCINE ( season) 2025 05/11/2024, 05/29/2023, 07/25/2022, Additional history exists BLOOD PRESSURE 09/07/2025 03/07/2025 COLONOSCOPY 10/24/2025 10/24/2020, 12/28/2015 COLORECTAL CANCER SCREENING 10/24/2025 DEPRESSION SCREENING 01/13/2026 01/13/2025 CREATININE LEVEL 05/17/2026 05/17/2025, , 05/04/2023, Additional history exists LIPID PANEL 05/17/2026 05/17/2025, 02/15, 05/04/2023, Additional history exists POTASSIUM LEVEL 05/17/2026 05/17/2025, 02/15, 05/04/2023, Additional history exists FOLLOW UP BONE DENSITY TESTING 05/24/2026 05/24/2024, 05/24/2024, 03/07/2024, Additional history exists Adult Td,Tdap Booster 02/04/2033 02/04/2023 , 07/16/2012, 04/17/2002 PNEUMOCOCCAL VACCINES (50+ years) Completed 02/01/2015, 07/16/2012, 05/27/2011, Additional history exists ZOSTER VACCINES Completed 07/19/2020, 04/17, 08/17/2007 RSV VACCINE Completed 06/11/2023 OSTEOPOROSIS SCREENING INITIAL (ONE-TIME) Completed 05/24/2024, 05/24/2024, 03/07/2024, Additional history exists SMOKING STATUS SCREENING (Once After 26 Yrs) Completed 01/13/2025 HEPATITIS A VACCINES Aged Out No long er eligible based on patient's age to complete this topic HIB VACCINES Aged Out No longer eligi ble based on patient's age to complete this topic MENINGOCOCCAL VACCINES (ACWY) Aged Out No longer eligible based on patient's age to complete this topic MENINGOCOCCAL VACCINES (B) Aged Out N o longer eligible based on patient's age to complete this topic Medical Devices Implanted Type Area Vice President And Portfolio Manager Device Identifier Shelf Expiration Date Model / Serial / Lot Recorder Loop Cardiac Reveal Linq Ii - [id number] Implanted:Qty: 1 on 05/14/2023 by Sky Castano MD, PhD at [facility] Implantable Monitor [employer] 08/02/2024 LNQ22 / [id number] / Medtronic In Lnq22 Linq Ii [id number] Implanted:05/14 (Quantity not on file) Implantable Monitor [employer] LNQ22 LINQ II / [id number] / System Watchman 31mm Flx Chris Closure - [id number] Implanted:Qty: 1 on 03/26/2023 by Tonia Arreola MD at [facility] CHRIS Occluder Left Atrial Appendage Twingly YONI 12/09/2025 [id number] / / [id number] Explanted Type Area Vice President And Portfolio Manager Device Identifier Shelf Expiration Date Model / Serial / Lot Monitor Cardiac Reveal Loop Recorder System - [id number] Implanted:Qty: 1 on 06/24/2019 by Gabriel Thayer MD at [facility] Explanted:Qty: 1 on 05/14/2023 by Sky Castano MD, PhD at [facility] Implantable Monitor [employer] 05/14/2020 LNQ11 / [id number] / Procedures Procedure Name Priority Date/Time Associated Diagnosis Comments URINALYSIS W/REFLEX URINE CULTURE Routine 05/17/2025 1:44 PM EDT Primary hypertension COMPREHENSIVE METABOLIC PANEL Routine 05/17/2025 1:27 PM EDT Primary hypertension Nocturia CBC AND DIFFERENTIAL Routine 05/17/2025 1:27 PM EDT Primary hypertension LIPID PANEL Routine 05/17/2025 1:27 PM EDT Pure hypercholesterolemia TSH Routine 05/17/2025 1:27 PM EDT Anxiety Primary hypertension VITAMIN B12 Routine 05/17/2025 1:27 PM EDT Memory change HEMOGLOBIN A1C Routine 05/17/2025 1:27 PM EDT Impaired fasting glucose 25-OH VITAMIN D Routine 05/17/2025 1:27 PM EDT Vitamin D deficiency MAGNESIUM Routine 05/17/2025 1:27 PM EDT Primary hypertension FERRITIN Routine 05/17/2025 1:27 PM EDT Anemia, unspecified type IRON AND IRON BINDING CAPACITY Routine 05/17/2025 1:27 PM EDT Anemia, unspecified type FOLATE Routine 05/17/2025 1:27 PM EDT Anemia, unspecified type DEVICE CHECK: ILR IN-HOME INTERROGATION Routine 04/27/2025 12:03 AM EDT Cryptogenic stroke Paroxysmal atrial fibrillation DEVICE CHECK: ILR IN-HOME INTERROGATION Routine 03/27/2025 12:02 AM EDT Cryptogenic stroke Paroxysmal atrial fibrillation HM MAMMOGRAPHY Routine 03/17/2025 12:04 PM EDT ECG 12-LEAD Routine 03/07/2025 10:23 AM EDT Paroxysmal atrial fibrillation DEXA SCAN Routine 05/24/2024 3:10 PM EDT HC BLOOD OCCULT FECAL HGB DETER IA QUAL FECES 1-3 Routine 01/23/2022 5:33 PM EDT Screen for colon cancer COLONOSCOPY FOR RESULT ENTRY ONLY Routine 10/24/2020 from Last 3 Months or Most Recently Relevant to Health Maintenance Results * Urinalysis w/reflex Urine Culture (05/17/2025 1:44 PM EDT) COLOR Yellow Yellow [facility] CLARITY Clear [facility] GLUCOSE Negative Negative [facility] BILI Negative Negative [facility] KETONES Negative Negative [facility] SPECIFIC GRAVITY 1.015 1.005 - 1.030 [facility] BLOOD Negative Negative [facility] PH 6.0 5.0 - 8.0 [facility] Protein-UA Negative Negative [facility] NITRITE Negative Negative [facility] Leukocyte esterase, ur Negative Negative [facility] Urine (Urine) 05/17/2025 1:4 4 PM EDT 05/17/2025 1:48 PM EDT us Parish Strauss MD URINE ORDERABLES Final Result [facility] [address] [place], [place] [id number] * (ABNORMAL) Comprehensive metabolic panel (05/17/2025 1:27 PM EDT) SODIUM 138 133 - 146 mmol/L [facility] POTASSIUM 4.2 3.3 - 5.1 mmol/L [facility] CHLORIDE 101 96 - 108 mmol/L [facility] CO2 28 21 - 35 mmol/L [facility] BUN 20(H) 6 - 19 mg/dL [facility] CREATININE 0.80 0.5 - 1.5 mg/dL [facility] GLUCOSE 82 70 - 99 mg/dL [facility] ALBUMIN 4.2 3.9 - 4.8 g/dL [facility] TOTAL PROTEIN 7.2 6.5 - 8.0 g/dL [facility] CALCIUM 9.6 8.4 - 10.3 mg/dL [facility] ALKALINE PHOSPHATASE 76 39 - 117 U/L [facility] TOTAL BILIRUBIN 0.5 0.0 - 1.2 mg/dL [facility] AST 17 0 - 37 U/L [facility] ALT 15 0 - 40 U/L [facility] GLOBULIN 3.0 1 - 4.8 g/dL [facility] EGFR 74 >59 mL/min/1.7 3m2 [facility] Comment:Estimated glomerular filtration rate calculated using the CKD-EPI refit equation. ANION GAP 13 10 - 20 mmol/L [facility] Blood 05/17/2025 1:27 PM EDT 05/17/2025 1:29 PM EDT us Parish Strauss MD LAB BLOOD ORDERABLES Final Re sult Performing Organization Address [facility] Co de Phone Number [address] [address] * (ABNORMAL) Iron and iron binding capacity (05/17/2025 1:27 PM EDT) [facility] IRON 63 30 - 160 ug/dL [facility] IRON BINDING CAPACITY 190(L) 228 - 428 ug/dL [facility] TRANSFERRIN SATURAT. 33 15 - 50 % [facility] Blood 05/17/2025 1:27 PM EDT 05/17/2025 1:29 PM EDT us Parish Strauss MD LAB BLOOD ORDERABLES Final Re sult Performing Organization Address [facility] Co de Phone Number [address] [address] * 25-OH vitamin D (05/17/2025 1:27 PM EDT) [facility] 25 OH VIT D (TOTAL) 52 30 - 60 ng/mL [facility] Blood 05/17/2025 1:27 PM EDT 05/17/2025 1:29 PM EDT Parish Strauss MD LAB BLOOD ORDERABLES Final Re sult Performing Organization Address [facility] Co de Phone Number [address] [phone] * (ABNORMAL) CBC and differential (05/17/2025 1:27 PM EDT) [facility] WBC 8.05 4.00 - 11.00 K/uL [facility] RBC 3.46(L) 4.00 - 5.20 M/uL [facility] HGB 10.5(L) 12.0 - 16.0 g/dL [facility] HCT 32.5(L) 36.0 - 46.0 % [facility] PLT 253 150 - 450 K/uL [facility] MCV 93.9 80.0 - 100.0 fL [facility] MCH 30.3 27.0 - 31.0 pg [facility] MCHC 32.3 32.0 - 36.0 g/dL [facility] RDW 13.6 11.5 - 14.5 % [facility] MPV 10.3 8.4 - 12.0 fL [facility] NRBC 0.00 0.00 /100 WBCs [facility] ABSOLUTE NRBC 0.00 0.00 K/uL [facility] DIFF METHOD Auto [facility] NEUTS 70.2 48.0 - 76.0 % [facility] LYMPHS 19.1 18.0 - 41.0 % [facility] MONOS 7.3 4.0 - 11.0 % [facility] EOS 2.5 0.0 - 5.0 % [facility] BASOS 0.5 0.0 - 1.5 % [facility] Granulocytes, immature (%) 0.4 0.0 - 0.9 % [facility] ABSOLUTE NEUTS 5.65 1.92 - 7.60 K/uL [facility] ABSOLUTE LYMPHS 1.54 0.72 - 4.10 K/uL [facility] ABSOLUTE MONOS 0.59 0.16 - 1.10 K/uL [facility] ABSOLUTE EOS 0.20 0.00 - 0.50 K/uL [facility] ABSOLUTE BASOS 0.04 0.00 - 0.15 K/uL [facility] Granulocytes, immature 0.03 0.00 - 0.09 K/uL [facility] Blood 05/17/2025 1:27 PM EDT 05/17/2025 1:29 PM EDT us Parish Strauss MD LAB BLOOD ORDERABLES Final Re sult [facility] [address] [place] [address] * TSH (05/17/2025 1:27 PM EDT) TSH 0.85 0.27 - 4.20 uIU/mL [facility] Blood 05/17/2025 1:27 PM EDT 05/17/2025 1:29 PM EDT Parish Strauss MD LAB BLOOD ORDERABLES Final Re sult Performing Organization Address [facility] Co de Phone Number [address] [address] * Magnesium (05/17/2025 1:27 PM EDT) Pathologist [facility] MAGNESIUM 2.3 1.6 - 2.6 mg/dL [facility] Blood 05/17/2025 1:27 PM EDT 05/17/2025 1:29 PM EDT Parish Strauss MD LAB BLOOD ORDERABLES Final Re sult Performing Organization Address [facility] Co de Phone Number [address] [address] * Hemoglobin A1c (05/17/2025 1:27 PM EDT) Pathologist [facility] HEMOGLOBIN A1C 5.3 4.3 - 5.8 % [facility] Blood 05/17/2025 1:27 PM EDT 05/17/2025 1:29 PM EDT Parish Strauss MD LAB BLOOD ORDERABLES Final Re sult Performing Organization Address [facility] de Phone Number [address] [address] * (ABNORMAL) Folate (05/17/2025 1:27 PM EDT) Pathologist [facility] FOLIC ACID >20.0(H) 4.2 - 19.9 ng/mL [facility] Blood 05/17/2025 1:27 PM EDT 05/17/2025 1:29 PM EDT us Parish Strauss MD LAB BLOOD ORDERABLES Final Re sult [address] [address] * Ferritin (05/17/2025 1:27 PM EDT) FERRITIN 133 13 - 150 ug/L [facility] Blood 05/17/2025 1:27 PM EDT 05/17/2025 1:29 PM EDT Parish Strauss MD LAB BLOOD ORDERABLES Final Re sult Performing Organization Address [facility] Co de Phone Number [address] [address] * Vitamin B12 (05/17/2025 1:27 PM EDT) VITAMIN B12 684 232 - 1,245 pg/mL [facility] Blood 05/17/2025 1:27 PM EDT 05/17/2025 1:29 PM EDT Parish Strauss MD LAB BLOOD ORDERABLES Final Re sult Performing Organization Address [facility] Co de Phone Number [address] [address] * (ABNORMAL) Lipid panel (05/17/2025 1:27 PM EDT) HDL 49 mg/dL [facility] Comment: Interpretation <40 mg/dL: Low HDL cholesterol (major risk factor for CHD) Greater than or equal to 60 mg/dL: High HDL cholesterol ( negative risk factor for CHD) HDL - cholesterol is affected by a number of factors, e.g. smoking, excerise, hormones, sex and age. CHOLESTEROL 112 0 - 240 mg/dL [facility] TRIGLYCERIDES 82 30 - 160 mg/dL [facility] LDL 47(L) 50 - 129 mg/dL [facility] Comment: LDL levels in terms of risk for coronary heart disease: <100 mg/dL: Optimal 100-129 mg/dL: Near or above optimal 130-159 mg/dL: Borderline high 160-189 mg/dL: High >190 mg/dL: Very High CARDIAC RISK RATIO 2.3(L) 3.3 - 4.4 C [facility] Blood 05/17/2025 1:27 PM EDT 05/17/2025 1:28 PM EDT us Parish Strauss MD LAB BLOOD ORDERABLES Final Re sult Performing Organization Address City/[facility]/ZIP Co de Phone Number [facility] [address] [place] [address] * DEVICE CHECK: ILR IN-HOME INTERROGATION (04/27/2025 12:03 AM EDT) Only the most recent of2 resultswithin the time period is included. Date Time Interrogation Session [id number] +[address] [facility] [employer] Implantable Pulse Generator Vice President And Portfolio Manager [employer] Implantable Pulse Generator Model [id number] II [facility] Implantable Pulse Generator Serial Number [id number] [facility] Type Interrogation Session Remote [facility] Clinic Name Arrhythmia Device Clinic [facility] Implantable Pulse Generator Type Implantable Diagnostic Monitor [facility] HEALTHCARE Generator Implant Date [id number] [facility] 04/27/2025 12:0 3 AM EDT Narrative [facility] - 05/01/2025 3:32 PM EDT Summary report dates: 03/27-04/26 Presenting rhythm: SR Battery status: Good Episodes: 0 Symptom activations: 0 Histogram: heart rates mainly 40s-80s bpm. Continue remote monitoring. Dear Patient, You may see a lot of technical details in this report. Please be assured that important issues will be identified and someone will contact you if there is any necessary follow up. us Sky Castano MD, PhD CV CARDIAC SERVICES ORDE SALLY Final Result Performing Organization Address City/[facility]/ZIP Co de Phone Number [facility] [address] [place] [address] * HM MAMMOGRAPHY FOR RESULT ENTRY ONLY (03/17/2025 12:04 PM EDT) Historical Provider HEALTH MAINTENANCE Final Result * ECG 12-LEAD (03/07/2025 10:23 AM EDT) Systolic Blood Pressure [facility] Diastolic Blood Pressure [facility] Ventricular Rate EKG/MIN 58 BPM [facility] Atrial Rate [facility] FL Interval [facility] QRS Duration 94 ms [facility] QT Interval 436 ms [facility] QTC Interval 428 ms [facility] P [place] [facility] R Wave [place] 8 degrees [facility] T Wave [place] 33 degrees [facility] 03/07/2025 10:2 3 AM EDT 03/15/2025 10:59 AM EDT Narrative [facility] - 03/15/2025 10:59 AM EDT LOC: [id number] DX: PAROXYSMAL AFIB REF: AUTUMN DARDEN SINUS BRADYCARDIA PREMATURE ATRIAL COMPLEXES BASELINE ARTIFACT WHEN COMPARED WITH ECG OF 01-Mar-2024 11:26, NO SIGNIFICANT CHANGE WAS FOUND Result [facility] Autumn Darden PA-C ECG ORDERABLES Final Result Performing Organization Address City/[facility]/ZIP Co de Phone Number [facility] * HM DEXA SCAN (05/24/2024 3:10 PM EDT) Result [facility] Historical Provider HEALTH MAINTENANCE Final Result * Fecal immunochemical test x1 (FIT) (01/23/2022 5:33 PM EDT) Immuno Fecal Occult Negative Negative [facility] Stool (Stool) 01/23/2022 5:3 3 PM EDT 01/23/2022 5:34 PM EDT Parish Strauss MD BODY FLUIDS AND STOOLS ORDERA BLES Final Result Performing Organization Address City/[facility]/ZIP Co de Phone Number [address] [address] * COLONOSCOPY FOR RESULT ENTRY ONLY (10/24/2020) us Historical Provider MD HEALTH MAINTENANCE Final Result from Last 3 Months or Most Recently Relevant to Health Maintenance Insurance MEDICARE PART A & B [employer] MEDEX SUPPLEMENT MEDICARE PART A & B [employer] MEDEX SUPPLEMENT MEDICARE PART A & B [facility] MEDEX SUPPLEMENT MEDICARE PART A & B [employer] MEDEX SUPPLEMENT MEDICARE PART A & B [employer] MEDEX SUPPLEMENT MEDICARE PART A & B [employer] MEDEX SUPPLEMENT MEDICARE PART A & B [employer] MEDEX SUPPLEMENT MEDICARE PART A & B [employer] MEDEX SUPPLEMENT MEDICARE PART A & B [employer] MEDEX SUPPLEMENT Advance Directives For more information, please contact: [phone] (9AM - 5PM Hilary/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 Advance Directive - Non Epic LMR 12/07/2008 12:00 AM * Full Code (Latest Code Status on File) Date Activated Date Inactivated Comments 03/26/2023 4:45 PM Question Answer Comments Code Status Confirmed With: Patient Care Teams Forest Economics Professor Relationship Specialty Start Date End Date Parish Strauss MD [address] [place] [address] [email or web address] PCP - General 02/14/14 Christiano Hargrove MD [address] [place] [address] Drive [address] [place] [address] Gastroenterology 01/13/20 Craig Porter MD [address] [facility] [address] [place] [address] [email or web address] Urology 12/28/20 Michelle Kwong MD [address] [place] [address] Drive [address] [place] [address] Obstetrics and Gynecology 12/28/20 Additional Source Comments The information contained in this document represents components of the legal health record. It is not the complete legal health record.[facility]
--- OUTSIDE RECORDS SUMMARY | 2025-06-01 09:14 | XMS_ITS | Encounter Summary ---
Author Organization [facility] Address [address] [place] [address] [address] [place] [address] Phone Care Team Providers Care Audit Lead Name Role Phone Parish Strauss MD Primary Care Provider [phone] Christiano Hargrove MD Unavailable [phone] Parish Strauss MD Unavailable [phone] Craig Porter MD Unavailable [phone] Michelle Kwong MD Unavailable [phone] Parish Strauss MD Unavailable [phone] Encounter Details Date Type Department Care Team (Late st Contact Info) Description 03/15/2021 Procedure Pass [facility] [address] [facility], [address] [place] [address] Social History Tobacco Use Types Packs/Day Years Used Date Smoking Tobacco: Never Smokeless Tobacco: Never Alcohol Use Standard Drinks/Week Comments No 0 (1 standard drink = 0.6 oz pur e alcohol) Comments Unknown Sex and Gender Information Value Date Recorded Sex Assigned at Female 12/21/2019 10:03 AM EDT Legal Sex Female 8:13 PM EST Gender Identity Female 12/21/2019 10:03 AM EDT Sexual Orientation Not on file documented as of this encounter Plan of Treatment Upcoming Encounters Date Type Department Care Team (Late st Contact Info) Description 12/26/2024 Procedure Pass [facility] [address] [facility], [address] [place] [address] 01/26/2025 Procedure Pass [facility] [address], [address] [place] [address] 02/24/2025 Procedure Pass [facility] [address] [facility], [address] [place] [address] 03/29/2025 Procedure Pass [facility] [address], [address] [place] [address] 04/28/2025 Procedure Pass [facility] [address] [address], [address] [place] [address] 05/30/2025 Procedure Pass [facility] [address], [address] [place] [address] 05/30/2025 Procedure Pass [facility] [address] [facility], [address] [place] [address] 06/28/2025 11:00 AM EST Appointment [facility] [address], [address] [place] [address] Sky Castano MD, PhD [address] [address] [email or web address] 07/29/2025 10:00 AM EST Appointment [facility] [address], [address] [place] [address] Sky Castano MD, PhD [facility] [address] [place] [address] [email or web address] 08/29/2025 10:00 AM EST Appointment [facility] [address], [address] [place] [address] Sky Castano MD, PhD 55 [facility] 800 [place] [address] [email or web address] 01/17/2026 9:00 AM EDT Office Visit [facility] Internal Medicine [address] [place], [place] [id number] Parish Strauss MD [address] [place] [address] [email or web address] 03/13/2026 11:30 AM EDT Office Visit [facility] Cardiac Arrhythmia Service [address] [place] [address], 5th Floor, [address] [place] [address] Charla Darden PA-C [address] [place] [address] [email or web address] documented as of this encounter Visit Diagnoses Not on filedocumented in this encounter Additional Health Concerns Assessment Noted Time PHQ-2 Depression Total Score: 0 03/09/20 18 3:03 PM EDT documented as of this encounter Care Teams Audit Lead Relationship Specialty Start Date End Date Parish Strauss MD [address] [place] [address] [email or web address] PCP - General 02/14/14 Christiano Hargrove MD [address] [place] [address] Drive [address] [place], [place] [id number] Gastroenterology 01/13/20 Parish Strauss MD [address] [place] [address] [email or web address] Insurance Assigned Provider 11/24/20 08/24/21 Craig Porter MD [address] [address] [email or web address] Urology 12/28/20 Michelle Kwong MD [address] [place] [address] [address] [place] [address] Obstetrics and Gynecology 12/28/20 Parish Strasus MD [address] [place] [address] [email or web address] Insurance Assigned Provider 11/21/23 08/22/24 documented as of this encounter Additional Source Comments The information contained in this document represents components of the legal health record. It is not the complete legal health record.[facility]
--- OUTSIDE RECORDS SUMMARY | 2025-06-01 09:14 | XMS_ITS | Encounter Summary ---
Author Organization [facility] Address [address] [facility] [address] [place] [address] Phone Care Team Providers Care Brake Lining Finisher Name Role Phone Parish Strauss MD Primary Care Provider [phone] Christiano Hargrove MD Unavailable [phone] Craig Porter MD Unavailable [phone] Michelle Kwong MD Unavailable [phone] Parish Strauss MD Unavailable [phone] Encounter Details Date Type Department Care Team (Late st Contact Info) Description 02/26/2023 Procedure Pass [facility] [address] [facility], [address] [place] [address] Social History Tobacco Use Types Packs/Day Years [...] st Contact Info) Description 12/26/2024 Procedure Pass [facility] [address], [address] [place] [address] 01/26/2025 Procedure Pass [facility] [address], [address] [place] [address] 02/24/2025 Procedure Pass [facility] [address] [facility], [address] [place] [address] 03/29/2025 Procedure Pass [facility] [address], [address] [place] [address] 04/28/2025 Procedure Pass [facility] [address] [facility], [address] [place] [address] 05/30/2025 Procedure Pass [facility] [address] [facility], [address] [place] [address] 05/30/2025 Procedure Pass [facility] [address] [facility], [address] [place] [address] 06/28/2025 11:00 AM EST Appointment [facility] [address] [facility], [address] [place] [address] Sky Castano MD, PhD [address] [place] [address] [email or web address] 07/29/2025 10:00 AM EST Appointment [facility] [address] [facility], [address] [place] [address] Sky Castano MD, PhD [address] [place] [address] [email or web address] 08/29/2025 10:00 AM EST Appointment [facility] 55 [facility], [address] [place] [address] Sky Castano MD, PhD 55 [facility] [place] [address] [email or web address] 01/17/2026 9:00 AM EDT Office Visit [facility] Internal Medicine 40 [place] [address] Parish Strauss MD [address] [place] [address] [email or web address] 03/13/2026 11:30 AM EDT Office Visit [facility]iac [facility]hythmia Service [address] [facility], 5th Floor, [address] [place] [address] Charla Darden PA-C [address], [place] [address] [email or web address] documented as of this encounter Visit Diagnoses Not on filedocumented in this encounter Additional Health Concerns Assessment Noted Time PHQ-2 Depression Total Score: 0 01/21/20 23 8:51 AM EDT documented as of this encounter Care Teams Brake Lining Finisher Relationship Specialty Start Date End Date Parish Strauss MD [address] [place] [address] [email or web address] PCP - General 02/14/14 Christiano Hargrove MD [address] [place] [address] Gastroenterology 01/13/20 Craig Porter MD 100 [facility] 120 [place] [phone] [email or web address] Urology 12/28/20 Michelle Kwong MD [address] [place] [address] [address] [place] [address] Obstetrics and Gynecology 12/28/20 Parish Strauss MD [address] [place] [address] [email or web address] Insurance Assigned Provider 11/21/23 08/22/24 documented as of this encounter Additional Source Comments The information contained in this document represents components of the legal health record. It is not the complete legal health record.[facility]
--- OUTSIDE RECORDS SUMMARY | 2025-06-01 09:14 | XMS_ITS | Encounter Summary ---
Author Organization [facility] Address [address] [facility] [address] [place] [address] Phone Care Team Providers Care Fish Bait Processing Supervisor Name Role Phone Parish Strauss MD Primary Care Provider [phone] Christiano Hargrove MD Unavailable [phone] Craig Porter MD Unavailable [phone] Michelle Kwong MD Unavailable [phone] Parish Strauss MD Unavailable [phone] Encounter Details Date Type Department Care Team (Late st Contact Info) Description 12/18/2023 Procedure Pass [facility] Card[facility] [address] [facility], [address] [place] [address] Social History Tobacco Use Types Packs/Day Years [...] Description 12/26/2024 Procedure Pass [facility] Card[facility] [address], [address] [place] [address] 01/26/2025 Procedure Pass [facility] [address], [address] [place] [address] 02/24/2025 Procedure Pass [facility] Card[facility] [address] [address], [address] [place] [address] 03/29/2025 Procedure Pass [facility] Cardiology Division [address], [address] [place] [address] 04/28/2025 Procedure Pass [facility] Cardiology Division [address], [address] [place] [address] 05/30/2025 Procedure Pass [facility] Cardiology [facility] [address] [address], [address] [place] [address] 05/30/2025 Procedure Pass [facility] Cardiology Division [address], [address] [place] [address] 06/28/2025 11:00 AM EST Appointment [facility] Cardiology Division [address] [facility], [address] [place] [address] Sky Castano MD, PhD [address] [place] [address] [email or web address] 07/29/2025 10:00 AM EST Appointment [facility] Cardiology Division [address] [facility], [address] [place] [address] Sky Castano MD, PhD [address] [place] [address] [email or web address] 08/29/2025 10:00 AM EST Appointment [facility] Cardiology Division 55 [facility], [address] [place] [address] Sky Castano MD, PhD 55 [facility] [address] [place] [address] [email or web address] 01/17/2026 9:00 AM EDT Office Visit [facility] Internal Medicine 40 [place] [address] Parish Strauss MD 40 [place] [address] [email or web address] 03/13/2026 11:30 AM EDT Office Visit [facility] Cardiac Arrhythmia Service [address] [facility], 5th Floor, [address] [place] [address] Charla Darden PA-C [address] [address] [email or web address] documented as of this encounter Visit Diagnoses Not on filedocumented in this encounter Additional Health Concerns Assessment Noted Time PHQ-2 Depression Total Score: 0 01/21/20 23 8:51 AM EDT documented as of this encounter Care Teams Fish Bait Processing Supervisor Relationship Specialty Start Date End Date Parish Strauss MD [address] [place] [address] [email or web address] PCP - General 02/14/14 Christiano Hargrove MD [address] [place] [address] Gastroenterology 01/13/20 Craig Porter MD 100 [facility] 120 [place] [phone] [email or web address] 12/28/20 Michelle Kwong MD [address] [place] [address] [address] [place] [address] Obstetrics and Gynecology 12/28/20 Parish Strauss MD [address] [place] [address] [email or web address] Insurance Assigned Provider 11/21/23 08/22/24 documented as of this encounter Additional Source Comments The information contained in this document represents components of the legal health record. It is not the complete legal health record.[facility]
--- OUTSIDE RECORDS SUMMARY | 2025-06-01 09:14 | XMS_ITS | Encounter Summary ---
Author Organization [facility] Address [address] [place] [address] [place] [address] Phone Care Team Providers Care Meat Products Demonstrator Name Role Phone Parish Strauss MD Primary Care Provider [phone] Christiano Hargrove MD Unavailable [phone] Parish Strauss MD Unavailable [phone] Craig Porter MD Unavailable Michelle Kwong MD Unavailable [phone] Parish Strauss MD Unavailable [phone] Encounter Details Date Type Department Care Team (Late st Contact Info) Description 12/17/2020 Ancillary Orders [facility] Cardiology Division [address] [place] [address], [address] [place] [address] Braulio Sheth MD [address] [place], [place] [address] [place] [address] [email or web address] Syncope and collapse Social History Tobacco Use Types Packs/Day Years [...] Contact Info) Description 12/26/2024 Procedure Pass [facility] Cardiology Division [address], [address] [place] [address] 01/26/2025 Procedure Pass [facility] Cardiology Division [address], [address] [place] [address] 02/24/2025 Procedure Pass [facility] Cardiology Division [address], [address] [place] [address] 03/29/2025 Procedure Pass [facility] Cardiology Division [address], [address] [place] [address] 04/28/2025 Procedure Pass [facility] Cardiology Division [address], [address] [place] [address] 05/30/2025 Procedure Pass [facility] Cardiology Division [address], [address] [place] [address] 05/30/2025 Procedure Pass [facility] Cardiology Division [address], [address] [place] [address] 06/28/2025 11:00 AM EST Appointment [facility] Cardiology Division [address], [address] [place] [address] Sky Castano MD, PhD [address] [place] [email or web address] 07/29/2025 10:00 AM EST Appointment [facility] Cardiology Division [address], [address] [place] [address] Sky Castano MD, PhD [address] [place] [address] [email or web address] 08/29/2025 10:00 AM EST Appointment [facility] Cardiology Division [address], [address] [place] [address] Sky Castano MD, PhD [address] [facility] [address] [place] [address] [email or web address] 01/17/2026 9:00 AM EDT Office Visit [facility] [address] [place] [address] Parish Strauss MD [address] [place] [address] [email or web address] 03/13/2026 11:30 AM EDT Office Visit [facility] Cardiac Arrhythmia Service [address] [place] [address], 5th Floor, [address] [place] [address] Charla Darden PA-C [address] [address] [email or web address] documented as of this encounter Results * DEVICE CHECK: ILR IN-HOME INTERROGATION (04/30/2022 9:21 AM EDT) Date Time Interrogation Session [id number] +0000 [facility] [employer] Implantable Pulse Generator Corn Chip Maker [employer] [facility] Implantable Pulse Generator Model LNQ11 Reveal LINQ [facility] Implantable Pulse Generator Serial Number [id number] [facility] Type Interrogation Session Remote [facility] Clinic Name Arrhythmia Device Clinic [facility] Implantable Pulse Generator Type Implantable Diagnostic Monitor [facility] Generator Implant Date [id number] [facility] 04/24/2022 3:27 PM EDT Narrative [facility] - 04/30/2022 12:31 PM EDT Summary report dates: 03/10-04/24 Presenting rhythm: Sinus Rhythm Battery status: OK Episodes: 0 Symptom activations: 0 Histogram: Heart rate distribution mainly 50s-70s bpm Continue remote monitoring us Braulio Sheth MD CV CARDIAC SERVICES ORDERABLE S Final Result [facility] [address] [place] [address] * DEVICE CHECK: ILR IN-HOME INTERROGATION (03/11/2022 11:46 AM EDT) Date Time Interrogation Session [id number] +0000 [facility] Implantable Pulse Generator Corn Chip Maker [employer] [facility] Implantable Pulse Generator Model LNQ11 Reveal LINQ [facility] Implantable Pulse Generator Serial Number [id number] [facility] Type Interrogation Session [facility] Clinic Name Arrhythmia Device Clinic [facility] Implantable Pulse Generator Type Implantable Diagnostic Monitor [facility] Generator Implant Date [id number] [facility] 03/10/2022 3:25 PM EDT Narrative [facility] - 03/13/2022 12:14 PM EDT Summary report dates: 01-25-22 to 03-10-22 Presenting rhythm: SR Battery status: OK Episodes: None Symptom activations: None Histogram: 40-140bpm Continue remote monitoring. Braulio Sheth MD CV CARDIAC SERVICES ORDERABLE S Final Result [address] [address] * DEVICE CHECK: ILR IN-HOME INTERROGATION (01/24/2022 4:39 PM EDT) Date Time Interrogation Session [id number] +0000 [facility] Implantable Pulse Generator Corn Chip Maker [employer] [facility] Implantable Pulse Generator Model LNQ11 Reveal LINQ [facility] Implantable Pulse Generator Serial Number [id number] [facility] Type Interrogation Session [facility] Name Arrhythmia Device Clinic [facility] Implantable Pulse Generator Type Implantable Diagnostic Monitor [facility] Generator Implant Date [id number] [facility] 01/24/2022 3:21 PM EDT Narrative [facility] - 02/10/2022 9:12 AM EDT Summary report dates: 12/11-01/24 Presenting rhythm: SB 50s bpm Battery status: OK Episodes: 0 Symptom activations: 1 w/ available EGM suggesting SB/SR w/ frequent ectopy. Histogram: rates mainly 50s-70s bpm. Continue remote monitoring. us Braulio Sheth MD CV CARDIAC SERVICES ORDERABLE S Final Result Performing Organization Address [facility] Co de Phone Number [facility] [address] [place] [address] * DEVICE CHECK: ILR IN-HOME INTERROGATION (12/11/2021 10:53 AM EDT) Date Time Interrogation Session [id number] +0000 [facility] Implantable Pulse Generator Corn Chip Maker [employer] [facility] Implantable Pulse Generator Model LNQ11 Reveal LINQ [facility] Implantable Pulse Generator Serial Number [id number] [facility] Type Interrogation Session Remote [facility] Clinic Name Arrhythmia Device Clinic [facility] Implantable Pulse Generator Type Implantable Diagnostic Monitor [facility] Generator Implant Date [id number] [facility] 12/10/2021 3:16 PM EDT Narrative [facility] - 12/14/2021 12:41 PM EDT Summary report dates: 10/26-12/10 Presenting rhythm: Sinus Rhythm Battery status: OK Episodes: 0 Symptom activations: 0 Histogram: Heart rate distribution mainly 50s-70s bpm, minimal up to 120s bpm Continue remote monitoring Braulio Sheth MD CV CARDIAC SERVICES ORDERABLE S Final Result Performing Organization Address [facility] de Phone Number [address] [address] * DEVICE CHECK: ILR IN-HOME INTERROGATION (10/28/2021 12:11 PM EDT) Date Time Interrogation Session [id number] +0000 [facility] Implantable Pulse Generator Corn Chip Maker [employer] [facility] Implantable Pulse Generator Model LNQ11 Reveal LINQ [facility] Implantable Pulse Generator Serial Number [id number] [facility] Type Interrogation Session Remote [facility] Clinic Name Arrhythmia Device Clinic [facility] Implantable Pulse Generator Type Implantable Diagnostic Monitor [facility] Generator Implant Date [id number] [facility] 10/26/2021 2:12 PM EST Narrative [facility] - 10/28/2021 8:09 PM EDT Summary report dates: 09/11-10/26 Battery status: OK Presenting rhythm: Sinus Rhythm Episodes: 0 Symptom activations: 0 Histogram: Heart rate distribution mainly 50s-70s, minimal up to 130s bpm Continue remote monitoring us Braulio Sheth MD CV CARDIAC SERVICES ORDERABLE S Final Result Performing Organization Address [facility] Co de Phone Number [facility] [address] [place] [address] * DEVICE CHECK: ILR IN-HOME INTERROGATION (09/11/2021 5:17 PM EST) Date Time Interrogation Session [id number] +0000 [facility] Implantable Pulse Generator Corn Chip Maker [employer] [facility] Implantable Pulse Generator Model LNQ11 Reveal LINQ [facility] Implantable Pulse Generator Serial Number [id number] [facility] Type Interrogation Session Remote [facility] Clinic Name Arrhythmia Device Clinic [facility] Implantable Pulse Generator Type Implantable Diagnostic Monitor [facility] Generator Implant Date [id number] [facility] 09/11/2021 2:10 PM EST Narrative [facility] - 09/11/2021 8:39 PM EST Summary report dates: 07/29/21-09/11/21 Presenting rhythm: SB 50s bpm w/ ectopy Battery status: OK Episodes: 0 Symptom activations: 0 Histogram: rates mainly 50s-70s bpm. Continue remote monitoring. us Braulio Sheth MD CV CARDIAC SERVICES ORDERABLE S Final Result Performing Organization Address [facility] Co de Phone Number [address] [address] * DEVICE CHECK: ILR IN-HOME INTERROGATION (07/31/2021 9:31 AM EST) Date Time Interrogation Session [id number] +0000 [facility] Implantable Pulse Generator Corn Chip Maker Med[employer] [facility] Implantable Pulse Generator Model LNQ11 Reveal LINQ [facility] Implantable Pulse Generator Serial Number [id number] [facility] Type Interrogation Session [facility] Clinic Name Arrhythmia Device Clinic [facility] Implantable Pulse Generator Type Implantable Diagnostic Monitor [facility] Generator Implant Date [id number] [facility] 07/28/2021 2:00 PM EST Narrative [facility] - 08/11/2021 11:42 AM EST Summary report dates: 06/13-07/28 Presenting rhythm: Sinus Rhythm Battery status: OK Episodes: 0 Symptom activations: 0 Histogram: HR distribution primarily 50s-70s, minimal up to 110s Continue remote monitoring. us Braulio Sheth MD CV CARDIAC SERVICES ORDERABLE S Final Result Performing Organization Address [facility] de Phone Number [facility] [address] [place] [address] * EP Device Check / Follow Up (06/13/2021 3:01 PM EDT) Date Time Interrogation Session [id number] +0000 [facility] Implantable Pulse Generator Corn Chip Maker [employer] [facility] Implantable Pulse Generator Model LNQ11 Reveal LINQ [facility] Implantable Pulse Generator Serial Number [id number] [facility] Type Interrogation Session [facility] Clinic Name Arrhythmia Device Clinic [facility] Implantable Pulse Generator Type Implantable Diagnostic Monitor [facility] Generator Implant Date [id number] [facility] 06/13/2021 3:01 PM EDT [facility] - 06/17/2021 12:58 PM EDT Summary report dates: 29-Apr-2021 to 13-Jun-2021 Presenting rhythm: SR 60's Battery status: OK Episodes: None Symptom activations: none Histogram: Hr distribution 50-70's Continue remote monitoring. us Braulio Sheth MD CV CARDIAC SERVICES ORDERABLE S Final Result Performing Organization Address [facility] Phone Number [facility] [address] [place] [address] * DEVICE CHECK: ILR IN-HOME INTERROGATION (04/29/2021 4:44 PM EDT) Date Time Interrogation Session [id number] +0000 [facility] Implantable Pulse Generator Corn Chip Maker [employer] [facility] Implantable Pulse Generator Model LNQ11 Reveal LINQ [facility] Implantable Pulse Generator Serial Number [id number] [facility] Type Interrogation Session [facility] Arrhythmia Device Clinic [facility] Implantable Pulse Generator Type Implantable Diagnostic Monitor [facility] Generator Implant Date [id number] [facility] 04/29/2021 2:59 PM EDT [facility] - 05/01/2021 8:04 PM EDT Summary report dates: 03/15-04/29 Presenting rhythm: SR Battery status: OK Episodes: 0 Symptom activations: 0 Histogram: HR distribution primarily 50s-70s. Minimal up to 110s. Continue remote monitoring. Braulio Sheth MD CV CARDIAC SERVICES ORDERABLE S Final Result Performing Organization Address [facility] Phone Number [address] [address] * DEVICE CHECK: ILR IN-HOME INTERROGATION (03/15/2021 4:06 PM EDT) Date Time Interrogation Session [id number] +0000 [facility] Implantable Pulse Generator Corn Chip Maker [employer] [facility] Implantable Pulse Generator Model LNQ11 Reveal LINQ [facility] Implantable Pulse Generator Serial Number [id number] [facility] Type Interrogation Session [facility] Clinic Name Arrhythmia Device Clinic [facility] Implantable Pulse Generator Type Implantable Diagnostic Monitor [facility] Generator Implant Date [id number] [facility] 03/15/2021 2:55 PM EDT [facility] - 03/18/2021 8:21 PM EDT Summary report dates: 01/30-03/15 Presenting rhythm: SR Battery status: OK Episodes: None Symptom activations: None Histogram: Primarily 50s-70s bpm, minimal 80s-110s bpm. Continue remote monitoring. Braulio Sheth MD CV CARDIAC SERVICES ORDERABLE S Final Result Performing Organization Address [facility] Phone Number [address] [address] * DEVICE CHECK: ILR IN-HOME INTERROGATION (01/30/2021 4:50 PM EDT) Date Time Interrogation Session [id number] +0000 [facility] Implantable Pulse Generator Corn Chip Maker [employer] [facility] Implantable Pulse Generator Model LNQ11 Reveal LINQ [facility] Implantable Pulse Generator Serial Number [id number] [facility] Type Interrogation Session [facility] Clinic Name Arrhythmia Device Clinic [facility] Implantable Pulse Generator Type Implantable Diagnostic Monitor [facility] Generator Implant Date [id number] [facility] 01/29/2021 2:52 PM EDT Narrative [facility] - 01/30/2021 10:32 PM EDT Summary report dates: 12/16-01/29 Presenting rhythm: SR Battery status: OK Episodes: None Symptom activations: None Histogram: Mainly 50s-70s bpm, minimal 80s-110s bpm Continue remote monitoring. Braulio Sheth MD CV CARDIAC SERVICES ORDERABLE S Final Result Performing Organization Address [facility] Co de Phone Number [facility] [address] [place] [address] * DEVICE CHECK: ILR IN-HOME INTERROGATION (12/17/2020 4:17 PM EDT) Date Time Interrogation Session [id number] +0000 [facility] [employer] Implantable Pulse Generator Corn Chip Maker [employer] Implantable Pulse Generator Model LNQ11 Reveal LINQ [facility] [employer] Implantable Pulse Generator Serial Number [id number] [facility] Type Interrogation Session Remote [facility] Clinic Name Arrhythmia Device Clinic [facility] Implantable Pulse Generator Type Implantable Diagnostic Monitor [facility] Generator Implant Date [id number] [facility] 12/15/2020 2:49 PM EDT Narrative [facility] - 03/01/2021 7:18 PM EDT Summary report dates: 10/31-12/15 Presenting rhythm: SR 60s bpm Battery status: OK Episodes: none Symptom activations: none Histogram: fair distribution of rates, mainly 50s-70s bpm. Continue remote monitoring. us Braulio Sheth MD CV CARDIAC SERVICES ORDERABLE S Final Result Performing Organization Address [facility] Co de Phone Number [facility] [address] [place] [address] documented in this encounter Visit Diagnoses Diagnosis Syncope and collapse Syncope and collapse Syncope and collapse Syncope and collapse Syncope and collapse Syncope and collapse Syncope and collapse Syncope and collapse Syncope and collapse Syncope and collapse Syncope and collapse Syncope and collapse Syncope and collapse documented in this encounter Additional Health Concerns Assessment Noted Time PHQ-2 Depression Total Score: 0 03/09/20 3:03 PM EDT documented as of this encounter Care Teams Meat Products Demonstrator Relationship Specialty Start Date End Date Parish Strauss MD [address] [place] [address] [email or web address] PCP - General 02/14/14 Christiano Hargrove MD [address] [place] [address] Gastroenterology 01/13/20 Parish Strauss MD [address] [place] [address] [email or web address] Insurance Assigned Provider 11/24/20 08/24/21 Craig Porter MD [address] [place] [phone] [email or web address] 12/28/20 Michelle Kwong MD [address] [place] [address] Drive [address] [place] [address] Obstetrics and Gynecology 12/28/20 Parish Strauss MD [address] [place] [address] [email or web address] Insurance Assigned Provider 11/21/23 08/22/24 documented as of this encounter Additional Source Comments The information contained in this document represents components of the legal health record. It is not the complete legal health record.[facility]
--- OUTSIDE RECORDS SUMMARY | 2025-06-01 09:14 | XMS_ITS | Encounter Summary ---
Author Organization [facility] Address [address] [facility] [address] [place] [address] Phone Care Team Providers Care Manager Labor Relations Name Role Phone Parish Strauss MD Primary Care Provider [phone] Christiano Hargrove MD Unavailable Craig Porter MD Unavailable [phone] Michelle Kwong MD Unavailable [phone] Parish Strauss MD Unavailable [phone] Encounter Details Date Type Department Care Team (Late st Contact Info) Description 03/26/2023 Procedure Pass [facility] Cardiac US [address] [place] [address] Social History Tobacco Use Types Packs/Day Years [...] 6:42 PM EDT Diego Fonseca RN * [place] Suicide Severity Rating Scale (Screener/Recent Self-Report) Question [...] st Contact Info) Description 12/26/2024 Procedure Pass [facility] Cardiology Division [address] [facility] [facility], [address] [place] [address] 01/26/2025 Procedure Pass [facility] Cardiology Division [address] [facility], [address] [place] [address] 02/24/2025 Procedure Pass [facility] Cardiology Division [address] [place] [facility], [address] [place] [address] 03/29/2025 Procedure Pass [facility] Cardiology Division [address] [facility], [address] [place] [address] 04/28/2025 Procedure Pass [facility] Cardiology Division [address] [facility], [address] [place] [address] 05/30/2025 Procedure Pass [facility] Cardiology Division [address] [place] [facility], [address] [place] [address] 05/30/2025 Procedure Pass [facility] Cardiology Division [address] [facility] [facility], [address] [place] [address] 06/28/2025 11:00 AM EST Appointment [facility] Cardiology Division [address] [facility], [address] [place] [address] Sky Castano MD, PhD [address] [address] [email or web address] 07/29/2025 10:00 AM EST Appointment [facility] Cardiology Division [address] [facility], [address] [place] [address] Sky Castano MD, PhD [address] [email or web address] 08/29/2025 10:00 AM EST Appointment [facility] Cardiology Division [address] [facility], [address] [place] [address] Sky Castano MD, PhD [address] [place] [address] [email or web address] 01/17/2026 9:00 AM EDT Office Visit [facility] Internal Medicine [address] [place] [address] Parish Strauss MD 40 [place] [address] [email or web address] 03/13/2026 11:30 AM EDT Office Visit [facility] Cardiac Arrhythmia Service [address] [facility], 5th Floor, [address] [place] [address] Charla Darden PA-C [address] [place] [address] [email or web address] documented as of this encounter Visit Diagnoses Not on filedocumented in this encounter Additional Health Concerns Assessment Noted Time PHQ-2 Depression Total Score: 0 01/21/20 8:51 AM EDT documented as of this encounter Care Teams Manager Labor Relations Relationship Specialty Start Date End Date Parish Strauss MD 40 [place] [address] [email or web address] PCP - General 02/14/14 Christiano Hargrove MD [address] [place] [address] Gastroenterology 01/13/20 Craig Porter MD [address] [place] [phone] [email or web address] Urology 12/28/20 Michelle Kwong MD [address] [place] [address] Drive [address] [place] [phone] Obstetrics and Gynecology 12/28/20 Parish Strauss MD [address] [place] [address] [email or web address] Insurance Assigned Provider 11/21/23 08/22/24 documented as of this encounter Additional Source Comments The information contained in this document represents components of the legal health record. It is not the complete legal health record.[facility]
--- OUTSIDE RECORDS SUMMARY | 2025-06-01 09:14 | XMS_ITS | Encounter Summary ---
Author Organization [facility] Address [address] [facility] [address] [place] [address] Phone Care Team Providers Care Administrator Of Home Health Name Role Phone Parish Strauss MD Primary Care Provider [phone] Christiano Hargrove MD Unavailable [phone] Craig Porter MD Unavailable [phone] Michelle Kwong MD Unavailable [phone] Parish Strauss MD Unavailable [phone] Encounter Details Date Type Department Care Team (Late st Contact Info) Description 01/20/2024 Procedure Pass [facility] Cardiology Division [address] [facility], [address] [place] [address] Social History Tobacco Use Types Packs/Day Years [...] st Contact Info) Description 12/26/2024 Procedure Pass [facility] Cardiology Division [address] [place], [address] [place] [address] 01/26/2025 Procedure Pass [facility] Cardiology Division [address] [place] [facility], [address] [place] [address] 02/24/2025 Procedure Pass [facility] Cardiology Division [address] [place] [facility], [address] [place] [address] 03/29/2025 Procedure Pass [facility] Cardiology Division [address] [place] [facility], [address] [place] [address] 04/28/2025 Procedure Pass [facility] Cardiology Division [address] [place] [facility], [address] [place] [address] 05/30/2025 Procedure Pass [facility] Cardiology Division [address] [place] [facility], [address] [place] [address] 05/30/2025 Procedure Pass [facility] Cardiology Division [address] [place] [facility], [address] [place] [address] 06/28/2025 11:00 AM EST Appointment [facility] Cardiology Division [address] [place] [facility], [address] [place] [address] Sky Castano MD, PhD [address] [place] [email or web address] 07/29/2025 10:00 AM EST Appointment [facility] Cardiology Division [address] [place] [facility], [address] [place] [address] Sky Castano MD, PhD [address] [place] [address] [email or web address] 08/29/2025 10:00 AM EST Appointment [facility] Cardiology Division 55 [facility], [address] [place] [address] Sky Castano MD, PhD [address] [facility] [address] [place] [address] [email or web address] 01/17/2026 9:00 AM EDT Office Visit [facility] Internal Medicine 40 [place] [address] Parish Strauss MD 40 [place] [address] [email or web address] 03/13/2026 11:30 AM EDT Office Visit [facility] Cardiac Arrhythmia Service [address] [facility], 5th Floor, [address] [place] [address] Charla Darden PA-C [address] [address] [email or web address] documented as of this encounter Visit Diagnoses Not on filedocumented in this encounter Additional Health Concerns Assessment Noted Time PHQ-2 Depression Total Score: 0 01/21/20 23 8:51 AM EDT documented as of this encounter Care Teams Administrator Of Home Health Relationship Specialty Start Date End Date Parish Strauss MD [address] [place] [address] [email or web address] PCP - General 02/14/14 Christiano Hargrove MD [address] [place] [address] Gastroenterology 01/13/20 Craig Porter MD [address] [facility] [address] [place] [phone] [email or web address] Urology 12/28/20 Michelle Kwong MD [address] [place] [address] [address] [place] [address] Obstetrics and Gynecology 12/28/20 Parish Strauss MD [address] [place] [address] [email or web address] Insurance Assigned Provider 11/21/23 08/22/24 documented as of this encounter Additional Source Comments The information contained in this document represents components of the legal health record. It is not the complete legal health record.[facility]
--- OUTSIDE RECORDS SUMMARY | 2025-06-01 09:14 | XMS_ITS | Encounter Summary ---
Author Organization [facility] Address [address] [place] [address] [address] [place] [address] Phone Care Team Providers Care Package Dyeing Machine Operator Name Role Phone Parish Strauss MD Primary Care Provider [phone] Christiano Hargrove MD Unavailable [phone] Parish Strauss MD Unavailable [phone] Craig Porter MD Unavailable [phone] Michelle Kwong MD Unavailable [phone] Parish Strauss MD Unavailable [phone] Encounter Details Date Type Department Care Team (Late st Contact Info) Description 12/17/2020 Procedure Pass [facility] Cardiology Division [address] [facility], [address] [place] [address] Social History Tobacco Use Types Packs/Day Years [...] st Contact Info) Description 12/26/2024 Procedure Pass [facility] Cardiology Division [address] [facility], [address] [place] [address] 01/26/2025 Procedure Pass [facility] Cardiology Division [address] [place] [facility], [address] [place] [address] 02/24/2025 Procedure Pass [facility] Cardiology Division [address] [place] [facility], [address] [place] [address] 03/29/2025 Procedure Pass [facility] Cardiology Division [address] [place] [facility], [address] [place] [address] 04/28/2025 Procedure Pass [facility] Cardiology Division [address] [place] [facility], [address] [place] [address] 05/30/2025 Procedure Pass [facility] Cardiology Division [address] [place] [facility], [address] [place] [address] 05/30/2025 Procedure Pass [facility] Cardiology Division [address] [place] [facility], [address] [place] [address] 06/28/2025 11:00 AM EST Appointment [facility] Cardiology Division [address] [place] [facility], [address] [place] [address] Sky Castano MD, PhD [address] [address] [email or web address] 07/29/2025 10:00 AM EST Appointment [facility] Cardiology Division [address] [place] [facility], [address] [place] [address] Sky Castano MD, PhD [facility] [address] [place] [address] [email or web address] 08/29/2025 10:00 AM EST Appointment [facility] Cardiology Division [address] [place] [facility], [address] [place] [address] Sky Castano MD, PhD 55 [facility] 800 [place] [address] [email or web address] 01/17/2026 9:00 AM EDT Office Visit [facility] Internal Medicine 40 [place], [place] [phone] Parish Strauss MD 40 [place] [address] [email or web address] 03/13/2026 11:30 AM EDT Office Visit [facility] Cardiac Arrhythmia Service [address] [place] [address], 5th Floor, [address] [place] [address] Charla Darden PA-C [address] [place] [address] [email or web address] documented as of this encounter Visit Diagnoses Not on filedocumented in this encounter Additional Health Concerns Assessment Noted Time PHQ-2 Depression Total Score: 0 03/09/20 18 3:03 PM EDT documented as of this encounter Care Teams Package Dyeing Machine Operator Relationship Specialty Start Date End Date Parish Strauss MD 40 [place] [address] [email or web address] PCP - General 02/14/14 Christiano Hargrove MD [address] [place] [address] Drive [address] [place], [place] [phone] Gastroenterology 01/13/20 Parish Strauss MD 40 [place] [address] [email or web address] Insurance Assigned Provider 11/24/20 08/24/21 Craig Porter MD [address] [address] [email or web address] Urology 12/28/20 Michelle Kwong MD [address] [place] [address] [address] [place] [address] Obstetrics and Gynecology 12/28/20 Parish Strauss MD [address] [place] [address] [email or web address] Insurance Assigned Provider 11/21/23 08/22/24 documented as of this encounter Additional Source Comments The information contained in this document represents components of the legal health record. It is not the complete legal health record.[facility]
--- OUTSIDE RECORDS SUMMARY | 2025-06-01 09:14 | XMS_ITS | Encounter Summary ---
Author Organization [facility] Address [address] [facility] [address] [place] [address] Phone Care Team Providers Care Supervisor [employer]aking [employer] Name Role Phone Parish Strauss MD Primary Care Provider [phone] Christiano Hargrove MD Unavailable Craig Porter MD Unavailable [phone] Michelle Kwong MD Unavailable [phone] Parish Strauss MD Unavailable [phone] Encounter Details Date Type Department Care Team (Late st Contact Info) Description 03/26/2023 Procedure Pass [facility] Cardiac US [address] [place] [address] Social History Tobacco Use Types Packs/Day Years [...] 6:42 PM EDT Diego Fonseca RN * [place] Suicide Severity Rating Scale (Screener/Recent Self-Report) Question [...] Contact Info) Description 12/26/2024 Procedure Pass [facility] Cardiology Division [address] [place] [facility], [address] [place] [address] 01/26/2025 Procedure Pass [facility] Cardiology Division [address] [place] [facility], [address] [place] [address] 02/24/2025 Procedure Pass [facility] Cardiology Division [address] [place] [facility], [address] [place] [address] 03/29/2025 Procedure Pass [facility] Cardiology Division [address] [place] [facility], [address] [place] [address] 04/28/2025 Procedure Pass [facility] Cardiology Division [address] [place] [facility], [address] [place] [address] 05/30/2025 Procedure Pass [facility] Cardiology Division [address] [place] [facility], [address] [place] [address] 05/30/2025 Procedure Pass [facility] Cardiology Division [address] [place] [facility], [address] [place] [address] 06/28/2025 11:00 AM EST Appointment [facility] Cardiology Division [address] [facility] [facility], [address] [place] [address] Sky Casatno MD, PhD [address] [address] [email or web address] 07/29/2025 10:00 AM EST Appointment [facility] Cardiology Division [address] [facility], [address] [place] [address] Sky Castano MD, PhD [address] [address] [email or web address] 08/29/2025 10:00 AM EST Appointment [facility] Cardiology Division [address] [facility], [address] [place] [address] Sky Castano MD, PhD [address] [place] [address] [email or web address] 01/17/2026 9:00 AM EDT Office Visit [facility] Internal Medicine 40 [place] [address] Parish Strauss MD 40 [place] [address] [email or web address] 03/13/2026 11:30 AM EDT Office Visit [facility] Cardiac Arrhythmia Service 32 [facility], 5th Floor, [address] [place] [address] Charla Darden PA-C [address] [place] [address] [email or web address] documented as of this encounter Visit Diagnoses Not on filedocumented in this encounter Additional Health Concerns Assessment Noted Time PHQ-2 Depression Total Score: 0 01/21/20 8:51 AM EDT documented as of this encounter Care Teams Supervisor [employer]aking [employer] Relationship Specialty Start Date End Date Parish Strauss MD 40 [place] [address] [email or web address] PCP - General 02/14/14 Christiano Hargrove MD [address] [facility] [address] [place] [address] Gastroenterology 01/13/20 Craig Porter MD [address] [place] [phone] [email or web address] Urology 12/28/20 Michelle Kwong MD [address] [place] [address] Drive [address] [place] [phone] Obstetrics and Gynecology 12/28/20 Parish Strauss MD 40 [place] [address] [email or web address] Insurance Assigned Provider 11/21/23 08/22/24 documented as of this encounter Additional Source Comments The information contained in this document represents components of the legal health record. It is not the complete legal health record.[facility]
--- OUTSIDE RECORDS SUMMARY | 2025-06-01 09:14 | XMS_ITS | Encounter Summary ---
Author Organization [facility] Address [address] [facility] [address] [place] [address] Phone Care Team Providers Care Bolt Sawyer Name Role Phone Parish Strauss MD Primary Care Provider [phone] Christiano Hargrove MD Unavailable [phone] Craig Porter MD Unavailable [phone] Michelle Kwong MD Unavailable [phone] Parish Strauss MD Unavailable [phone] Encounter Details Date Type Department Care Team (Late st Contact Info) Description 02/22/2024 Procedure Pass [facility] Cardiology Division 55 [facility], [address] [place] [address] Social History Tobacco Use Types Packs/Day Years Used Date Smoking Tobacco: Never Smokeless Tobacco: Never Alcohol Use Standard Drinks/Week Comments Yes 0 (1 standard drink = 0.6 oz pur e alcohol) 1 sip of beer once in a while Education Answer Date Recorded Are you interested [...] st Contact Info) Description 12/26/2024 Procedure Pass [facility] Cardiology Division [address] [place] [facility], [address] [place] [address] 01/26/2025 Procedure Pass [facility] Cardiology Division [address] [place] [facility], [address] [place] [address] 02/24/2025 Procedure Pass [facility] Cardiology Division [address] [place] [facility], [address] [place] [address] 03/29/2025 Procedure Pass [facility] Cardiology Division [address] [place] [facility], [address] [place] [address] 04/28/2025 Procedure Pass [facility] Cardiology Division [address] [place] [facility], [address] [place] [address] 05/30/2025 Procedure Pass [facility] Cardiology Division [address] [place] [facility], [address] [place] [address] 05/30/2025 Procedure Pass [facility] Cardiology Division [address] [place] [facility], [address] [place] [address] 06/28/2025 11:00 AM EST Appointment [facility] Cardiology Division [address] [place] [facility], [address] [place] [address] Sky Castano MD, PhD [address] [place] [address] [email or web address] 07/29/2025 10:00 AM EST Appointment [facility] Cardiology Division [address] [place] [facility], [address] [place] [address] Sky Castano MD, PhD [address] [place] [address] 800 [place] [address] [email or web address] 08/29/2025 10:00 AM EST Appointment [facility] Cardiology Division [address] [facility], [address] [place] [address] Sky Castano MD, PhD 55 [facility] [address] [place] [address] [email or web address] 01/17/2026 9:00 AM EDT Office Visit [facility] Internal Medicine 40 [place] [address] Parish Strauss MD 40 [place] [address] [email or web address] 03/13/2026 11:30 AM EDT Office Visit [facility] Cardiac Arrhythmia Service [address] [facility], 5th Floor, [address] [place] [address] Charla Darden PA-C [address] [address] [email or web address] documented as of this encounter Visit Diagnoses Not on filedocumented in this encounter Additional Health Concerns Assessment Noted Time PHQ-2 Depression Total Score: 0 03/07/20 24 8:52 AM EDT documented as of this encounter Care Teams Bolt Sawyer Relationship Specialty Start Date End Date Parish Strauss MD 40 [place] [address] [email or web address] PCP - General 02/14/14 Christiano Hargrove MD [address] [place] [address] Gastroenterology 01/13/20 Craig Porter MD 100 [facility] 120 [place] [phone] [email or web address] Urology 12/28/20 Michelle Kwong MD [address] [place] [address] [address] [place] [address] Obstetrics and Gynecology 12/28/20 Parish Strauss MD [address] [place] [address] [email or web address] Insurance Assigned Provider 11/21/23 08/22/24 documented as of this encounter Additional Source Comments The information contained in this document represents components of the legal health record. It is not the complete legal health record.[facility]
--- OUTSIDE RECORDS SUMMARY | 2025-06-01 09:14 | XMS_ITS | Encounter Summary ---
Author Organization [facility] Address [address] [place] [address] [address] [place] [address] Phone Care Team Providers Care Waterway Traffic Checker Name Role Phone Parish Strauss MD Primary Care Provider [phone] Christiano Hargrove MD Unavailable [phone] Parish Strauss MD Unavailable [phone] Craig Porter MD Unavailable [phone] Michelle Kwong MD Unavailable [phone] Parish Strauss MD Unavailable [phone] Encounter Details Date Type Department Care Team (Late st Contact Info) Description 12/17/2020 Procedure Pass [facility] Cardiology Division [address] [facility] [facility], [address] [place] [address] Social History Tobacco Use Types Packs/Day Years [...] st Contact Info) Description 12/26/2024 Procedure Pass [facility] Cardiology Division [address], [address] [place] [address] 01/26/2025 Procedure Pass [facility] Cardiology Division [address] [facility], [address] [place] [address] 02/24/2025 Procedure Pass [facility] Cardiology Division [address] [place], [address] [place] [address] 03/29/2025 Procedure Pass [facility] Cardiology Division [address] [facility], [address] [place] [address] 04/28/2025 Procedure Pass [facility] Cardiology Division [address] [facility] [facility], [address] [place] [address] 05/30/2025 Procedure Pass [facility] Cardiology Division [address], [address] [place] [address] 05/30/2025 Procedure Pass [facility] Cardiology Division [address] [facility] [facility], [address] [place] [address] 06/28/2025 11:00 AM EST Appointment [facility] Cardiology Division [address] [facility] [facility], [address] [place] [address] Sky Castano MD, PhD [address] [address] [email or web address] 07/29/2025 10:00 AM EST Appointment [facility] Cardiology Division [address], [address] [place] [address] Sky Castano MD, PhD [facility] [address] [place] [email or web address] 08/29/2025 10:00 AM EST Appointment [facility] Cardiology Division [address], [address] [place] [address] Sky Castano MD, PhD 55 [facility] [address] [place] [address] [email or web address] 01/17/2026 9:00 AM EDT Office Visit [facility] Internal Medicine 40 [place], [place] [phone] Parish Strauss MD 40 [place] [address] [email or web address] 03/13/2026 11:30 AM EDT Office Visit [facility] Cardiac Arrhythmia Service [address] [place] [address], 5th Floor, [address] [place] [address] Charla Darden PA-C [address] [place] [address] [email or web address] documented as of this encounter Visit Diagnoses Not on filedocumented in this encounter Additional Health Concerns Assessment Noted Time PHQ-2 Depression Total Score: 0 03/09/20 18 3:03 PM EDT documented as of this encounter Care Teams Waterway Traffic Checker Relationship Specialty Start Date End Date Parish Strauss MD 40 [place] [address] [email or web address] PCP - General 02/14/14 Christiano Hargrove MD [address] [place] [address] Drive [address] [place], [place] [phone] Gastroenterology 01/13/20 Parish Strauss MD 40 [place] [address] [email or web address] Insurance Assigned Provider 11/24/20 08/24/21 Craig Porter MD [address] [address] [email or web address] Urology 12/28/20 Michelle Kwong MD [address] [place] [address] [address] [place] [address] Obstetrics and Gynecology 12/28/20 Parish Strauss MD [address] [place] [address] [email or web address] Insurance Assigned Provider 11/21/23 08/22/24 documented as of this encounter Additional Source Comments The information contained in this document represents components of the legal health record. It is not the complete legal health record.[facility]
--- OUTSIDE RECORDS SUMMARY | 2025-06-01 09:14 | XMS_ITS | Encounter Summary ---
Author Organization [facility] Address [address] [place] [address] Phone Care Team Providers Care Installment Dealer Name Role Phone Parish Strauss MD Primary Care Provider Christiano Hargrove MD Unavailable [phone] Craig Porter MD Unavailable [phone] Michelle Kwong MD Unavailable [phone] Encounter Details Date Type Department Care Team (Late st Contact Info) Description 12/26/2024 Procedure Pass [facility] Cardiology Division [address] [facility], [address] [place], [place] [phone] Social History Tobacco Use Types Packs/Day Years Used Date Smoking Tobacco: Never Smokeless Tobacco: Never Alcohol Use Standard Drinks/Week Comments Yes 0 (1 standard drink = 0.6 oz pur e alcohol) rarely Education Answer Date Recorded Are you interested in more education? Not on dneis e 12/12/2022 Are you concerned about learning? Not on file 12/12/2022 No 12/12/2022 No 12/12/2022 Digital Access Answer Date Recorded No 01/06/2023 No 01/06/2023 Reliable internet access at home? Not on file 01/06/2023 Device with a working camera? Not on file Intimate Partner Violence Answer Date R ecorded Are you denied basic needs s uch as food, clothing, or medical care? No 03/07/2024 In the past 12 months have y ou been in a relationship with a person who hurts, threatens, or tries to control you? No 03/07/2024 Are you denied basic needs s uch as food, clothing, or medical care? No 03/07/2024 In the past 12 months have y ou been in a relationship with a person who hurts, threatens, or tries to control you? No 03/07/2024 Comments Unknown Sex and Gender Information Value Date Recorded Sex Assigned at Female 12/21/2019 10:03 AM EDT Legal Sex Female 8:13 PM EST Gender Identity Female 12/21/2019 10:03 AM EDT Sexual Orientation Not on file documented as of this encounter Plan of Treatment Upcoming Encounters Date Type Department Care Team (Late st Contact Info) Description 12/26/2024 Procedure Pass [facility] Cardiology Division [address] [facility] [address] [place] [address] 01/26/2025 Procedure Pass [facility] Cardiology Division [address] [place] [address] [facility], [address] [place] [address] 02/24/2025 Procedure Pass [facility] Cardiology Division [address] [facility], [address] [place] [address] 03/29/2025 Procedure Pass [facility] Cardiology Division [address] [facility], [address] [place] [address] 04/28/2025 Procedure Pass [facility] Cardiology Division [address] [facility], [address] [place] [address] 05/30/2025 Procedure Pass [facility] Cardiology Division [address] [facility], [address] [place] [address] 05/30/2025 Procedure Pass [facility] Cardiology Division [address] [facility], [address] [place] [address] 06/28/2025 11:00 AM EST Appointment [facility] Cardiology Division [address] [facility], [address] [place] [address] Sky Castano MD, PhD 55 [facility] 800 [place] [address] [email or web address] 07/29/2025 10:00 AM EST Appointment [facility] Cardiology Division [address] [facility], [address] [place] [address] Sky Castano MD, PhD [address] [address] [email or web address] 08/29/2025 10:00 AM EST Appointment [facility] Cardiology Division [address] [facility], [address] [place] [address] Sky Castano MD, PhD 55 [facility] 800 [place] [address] [email or web address] 01/17/2026 9:00 AM EDT Office Visit [facility] Internal Medicine 40 [place] [address] Parish Strauss MD 40 [place] [address] [email or web address] 03/13/2026 11:30 AM EDT Office Visit [facility] Cardiac Arrhythmia Service [address] [facility], 5th Floor, [address] [place] [address] Charla Darden PA-C [address] [place] [address] [email or web address] documented as of this encounter Visit Diagnoses Not on filedocumented in this encounter Additional Health Concerns Assessment Noted Time PHQ-2 Depression Total Score: 0 01/14/20 25 8:27 AM EDT documented as of this encounter Care Teams Installment Dealer Relationship Specialty Start Date End Date Parish Strauss MD 40 [place] [address] [email or web address] PCP - General 02/14/14 Christiano Hargrove MD [address] [place] [address] Gastroenterology 01/13/20 Craig Porter MD [address] [facility] [address] [place] [phone] [email or web address] Urology 12/28/20 Michelle Kwong MD [address] [place] [address] Obstetrics and Gynecology 12/28/20 documented as of this encounter Additional Source Comments The information contained in this document represents components of the legal health record. It is not the complete legal health record.[facility]
--- OUTSIDE RECORDS SUMMARY | 2025-06-01 09:14 | XMS_ITS | Encounter Summary ---
Author Organization [facility] Address [address] [place] [address] [address] [place] [address] Phone Care Team Providers Care Nuclear Fuels Reclamation Engineer Name Role Phone Parish Strauss MD Primary Care Provider [phone] Christiano Hargrove MD Unavailable [phone] Parish Strauss MD Unavailable [phone] Craig Porter MD Unavailable [phone] Michelle Kwong MD Unavailable [phone] Parish Strauss MD Unavailable [phone] Encounter Details Date Type Department Care Team (Late st Contact Info) Description 01/30/2021 Procedure Pass [facility] Cardiology Division [address] [facility], [address] [place] [address] Social History Tobacco Use Types Packs/Day Years [...] st Contact Info) Description 12/26/2024 Procedure Pass [facility] Cardiology Division [address] [facility], [address] [place] [address] 01/26/2025 Procedure Pass [facility] Cardiology Division [address] [facility], [address] [place] [address] 02/24/2025 Procedure Pass [facility] Cardiology Division [address], [address] [place] [address] 03/29/2025 Procedure Pass [facility] Cardiology Division [address] [address], [address] [place] [address] 04/28/2025 Procedure Pass [facility] Cardiology Division [address] [facility], [address] [place] [address] 05/30/2025 Procedure Pass [facility] Cardiology Division [address] [facility], [address] [place] [address] 05/30/2025 Procedure Pass [facility] Cardiology Division [address] [facility] [facility], [address] [place] [address] 06/28/2025 11:00 AM EST Appointment [facility] Cardiology Division [address] [facility] [facility], [address] [place] [address] Sky Castano MD, PhD [address] [address] [email or web address] 07/29/2025 10:00 AM EST Appointment [facility] Cardiology Division [address] [place] [facility], [address] [place] [address] Sky Castano MD, PhD [facility] [address] [place] [address] [email or web address] 08/29/2025 10:00 AM EST Appointment [facility] Cardiology Division [address] [facility], [address] [place] [address] Sky Castano MD, PhD [address] [facility] 800 [place] [address] [email or web address] 01/17/2026 9:00 AM EDT Office Visit [facility] Internal Medicine 40 [place], [place] [phone] Parish Strauss MD 40 [place] [address] [email or web address] 03/13/2026 11:30 AM EDT Office Visit [facility] Cardiac Arrhythmia Service [address] [place] [address], 5th Floor, [address] [place] [address] Charla Darden PA-C [address] [place] [address] [email or web address] documented as of this encounter Visit Diagnoses Not on filedocumented in this encounter Additional Health Concerns Assessment Noted Time PHQ-2 Depression Total Score: 0 03/09/20 18 3:03 PM EDT documented as of this encounter Care Teams Nuclear Fuels Reclamation Engineer Relationship Specialty Start Date End Date Parish Strauss MD [address] [place] [address] [email or web address] PCP - General 02/14/14 Christiano Hargrove MD [address] [place] [address] Drive [address] [place], [place] [phone] Gastroenterology 01/13/20 Parish Strauss MD [address] [place] [address] [email or web address] Insurance Assigned Provider 11/24/20 08/24/21 Craig Porter MD [address] [address] [email or web address] Urology 12/28/20 Michelle Kwong MD [address] [place] [address] [address] [place] [address] Obstetrics and Gynecology 12/28/20 Parish Strauss MD [address] [place] [address] [email or web address] Insurance Assigned Provider 11/21/23 08/22/24 documented as of this encounter Additional Source Comments The information contained in this document represents components of the legal health record. It is not the complete legal health record.[facility]
--- OUTSIDE RECORDS SUMMARY | 2025-06-01 09:15 | XMS_ITS | Encounter Summary ---
Author Organization [facility] Address [address] [place] [address] Phone Care Team Providers Care Cloth Roll Winder Name Role Phone Parish Strauss MD Primary Care Provider [phone] Christiano Hargrove MD Unavailable [phone] Craig Porter MD Unavailable [phone] Michelle Kwong MD Unavailable [phone] Encounter Details Date Type Department Care Team (Late st Contact Info) Description 12/05/2024 Procedure Pass [facility] Cardiology Division [address] [facility], [address] [place], [place] [phone] Social History Tobacco Use Types Packs/Day Years [...] st Contact Info) Description 12/26/2024 Procedure Pass [facility] Cardiology Division [address] [facility], [address] [place] [address] 01/26/2025 Procedure Pass [facility] Cardiology Division [address] [place] [address] [facility], [address] [place] [address] 02/24/2025 Procedure Pass [facility] Cardiology Division [address] [facility], [address] [place] [address] 03/29/2025 Procedure Pass [facility] Cardiology Division [address] [facility], [address] [place] [address] 04/28/2025 Procedure Pass [facility] Cardiology Division [address] [facility], [address] [place] [address] 05/30/2025 Procedure Pass [facility] Cardiology Division [address] [facility], [address] [place] [address] 05/30/2025 Procedure Pass [facility] Cardiology Division [address] [facility] [facility], [address] [place] [address] 06/28/2025 11:00 AM EST Appointment [facility] Cardiology Division [address] [place] [facility], [address] [place] [address] Sky Castano MD, PhD 55 [facility] 800 [place] [address] [email or web address] 07/29/2025 10:00 AM EST Appointment [facility] Cardiology Division [address] [facility], [address] [place] [address] Sky Castano MD, PhD [address] [address] [email or web address] 08/29/2025 10:00 AM EST Appointment [facility] Cardiology Division [address] [facility], [address] [place] [address] Sky Castano MD, PhD 55 [facility] 800 [place] [address] [email or web address] 01/17/2026 9:00 AM EDT Office Visit [facility] Internal Medicine [address] [place] [address] Parish Strauss MD 40 [place] [address] [email or web address] 03/13/2026 11:30 AM EDT Office Visit [facility] Cardiac Arrhythmia Service [address] [facility], 5th Floor, [address] [place] [address] Charla Darden PA-C [address] [place] [address] [email or web address] documented as of this encounter Visit Diagnoses Not on filedocumented in this encounter Additional Health Concerns Assessment Noted Time PHQ-2 Depression Total Score: 0 03/07/20 8:52 AM EDT documented as of this encounter Care Teams Cloth Roll Winder Relationship Specialty Start Date End Date Parish Strauss MD 40 [place] [address] [email or web address] PCP - General 02/14/14 Christiano Hargrove MD [address] [place] [address] Gastroenterology 01/13/20 Craig Porter MD [address] [facility] [address] [place] [phone] [email or web address] Urology 12/28/20 Michelle Kwong MD [address] [facility] [place] [address] Obstetrics and Gynecology 12/28/20 documented as of this encounter Additional Source Comments The information contained in this document represents components of the legal health record. It is not the complete legal health record.[facility]
--- OUTSIDE RECORDS SUMMARY | 2025-06-01 09:15 | XMS_ITS | Encounter Summary ---
Author Organization [facility] Address [address] [place] [address] Phone Care Team Providers Care Apprentice Electrician Name Role Phone Parish Strauss MD Primary Care Provider [phone] Christiano Hargrove MD Unavailable Craig Porter MD Unavailable [phone] Michelle Kwong MD Unavailable [phone] Parish Strauss MD Unavailable [phone] Encounter Details Date Type Department Care Team (Late st Contact Info) Description 07/16/2023 Procedure Pass [facility] Cardiology Division [address] [place] [address], [address] [place] [address] Social History Tobacco Use Types Packs/Day Years [...] st Contact Info) Description 12/26/2024 Procedure Pass [facility] Cardiology Division [address], [address] [place] [address] 01/26/2025 Procedure Pass [facility] Cardiology Division [address], [address] [place] [address] 02/24/2025 Procedure Pass [facility] Cardiology Division [address] [address], [address] [place] [address] 03/29/2025 Procedure Pass [facility] Cardiology Division [address], [address] [place] [address] 04/28/2025 Procedure Pass [facility] Cardiology Division [address], [address] [place] [address] 05/30/2025 Procedure Pass [facility] Cardiology Division [address] [address], [address] [place] [address] 05/30/2025 Procedure Pass [facility] Cardiology Division [address], [address] [place] [address] 06/28/2025 11:00 AM EST Appointment [facility] Cardiology Division [address], [address] [place] [address] Sky Castano MD, PhD [address] [place] [address] [email or web address] 07/29/2025 10:00 AM EST Appointment [facility] Cardiology Division [address] [address], [address] [place] [address] Sky Castano MD, PhD [address] [place] [address] [email or web address] 08/29/2025 10:00 AM EST Appointment [facility] Cardiology Division [address] [facility], [address] [place] [address] Sky Castano MD, PhD [address] [facility] [address] [place] [address] [email or web address] 01/17/2026 9:00 AM EDT Office Visit [facility] Internal Medicine [address] [place] [address] Parish Strauss MD 40 [place] [address] [email or web address] 03/13/2026 11:30 AM EDT Office Visit [facility] Cardiac Arrhythmia Service [address] [facility], 5th Floor, [address] [place] [address] Charla Darden PA-C [address] [address] [email or web address] documented as of this encounter Visit Diagnoses Not on filedocumented in this encounter Additional Health Concerns Assessment Noted Time PHQ-2 Depression Total Score: 0 01/21/20 23 8:51 AM EDT documented as of this encounter Care Teams Apprentice Electrician Relationship Specialty Start Date End Date Parish Strauss MD 40 [place] [address] [email or web address] PCP - General 02/14/14 Christiano Hargrove MD [address] [place] [address] Gastroenterology 01/13/20 Craig Porter MD [address] [facility] [address] [place] [phone] [email or web address] 12/28/20 Michelle Kwong MD [address] [place] [address] [address] [place] [address] Obstetrics and Gynecology 12/28/20 Parish Strauss MD [address] [place] [address] [email or web address] Insurance Assigned Provider 11/21/23 08/22/24 documented as of this encounter Additional Source Comments The information contained in this document represents components of the legal health record. It is not the complete legal health record.[facility]
--- OUTSIDE RECORDS SUMMARY | 2025-06-01 09:15 | XMS_ITS | Encounter Summary ---
Author Organization [facility] Address [address] [place] [address] Phone Care Team Providers Care Jig And Fixture Builder Apprentice Name Role Phone Parish Strauss MD Primary Care Provider [phone] Christiano Hargrove MD Unavailable Craig Porter MD Unavailable [phone] Michelle Kwong MD Unavailable [phone] Parish Strauss MD Unavailable [phone] Encounter Details Date Type Department Care Team (Late st Contact Info) Description 09/16/2023 Procedure Pass [facility] Cardiology Division [address] [facility], [address] [place] [address] Social History Tobacco Use Types Packs/Day Years [...] [address], [address] [place] [address] 01/26/2025 Procedure Pass [facility] Cardiology Division [address], [address] [place] [address] 02/24/2025 Procedure Pass [facility] Cardiology Division [address], [address] [place] [address] 03/29/2025 Procedure Pass [facility] Cardiology Division [address], [address] [place] [address] 04/28/2025 Procedure Pass [facility] Cardiology Division [address], [address] [place] [address] 05/30/2025 Procedure Pass [facility] Cardiology Division [address], [address] [place] [address] 05/30/2025 Procedure Pass [facility] Cardiology Division [address], [address] [place] [address] 06/28/2025 11:00 AM EST Appointment [facility] Cardiology Division [address], [address] [place] [address] Sky Castano MD, PhD [address] [place] [address] [email or web address] 07/29/2025 10:00 AM EST Appointment [facility] Cardiology Division [address], [address] [place] [address] Sky Castano MD, PhD [address] [place] [address] [email or web address] 08/29/2025 10:00 AM EST Appointment [facility] Cardiology Division [address] [facility], [address] [place] [address] Sky Castano MD, PhD [address] [facility] [address] [place] [address] [email or web address] 01/17/2026 9:00 AM EDT Office Visit [facility] Internal Medicine 40 [place] [address] Parish Strauss MD 40 [place] [address] [email or web address] 03/13/2026 11:30 AM EDT Office Visit [facility] Cardiac Arrhythmia Service [address] [facility], 5th Floor, [address] [place] [address] Charla Darden PA-C [address], [place] [address] [email or web address] documented as of this encounter Visit Diagnoses Not on filedocumented in this encounter Additional Health Concerns Assessment Noted Time PHQ-2 Depression Total Score: 0 01/21/20 23 8:51 AM EDT documented as of this encounter Care Teams Jig And Fixture Builder Apprentice Relationship Specialty Start Date End Date Parish Strauss MD 40 [place] [address] [email or web address] PCP - General 02/14/14 Christiano Hargrove MD [address] [place] [address] Gastroenterology 01/13/20 Craig Porter MD 100 [facility] 120 [place] [phone] [email or web address] Urology 12/28/20 Michelle Kwong MD [address] [place] [address] [address] [place] [address] Obstetrics and Gynecology 12/28/20 Parish Strauss MD [address] [place] [address] [email or web address] Insurance Assigned Provider 11/21/23 08/22/24 documented as of this encounter Additional Source Comments The information contained in this document represents components of the legal health record. It is not the complete legal health record.[facility]
--- OUTSIDE RECORDS SUMMARY | 2025-06-01 09:15 | XMS_ITS | Encounter Summary ---
Author Organization [facility] Address [address] [place] [address] Phone Care Team Providers Care Rubber Mill Operator Name Role Phone Parish Strauss MD Primary Care Provider [phone] Christiano Hargrove MD Unavailable [phone] Craig Porter MD Unavailable [phone] Michelle Kwong MD Unavailable [phone] Parish Strauss MD Unavailable [phone] Encounter Details Date Type Department Care Team (Late st Contact Info) Description 11/25/2022 Procedure Pass [facility] Cardiology Division [address] [facility], [address] [place] [address] Social History Tobacco Use Types Packs/Day Years [...] st Contact Info) Description 12/26/2024 Procedure Pass [facility] Cardiology Division [address] [facility], [address] [place] [address] 01/26/2025 Procedure Pass [facility] Cardiology Division [address] [facility], [address] [place] [address] 02/24/2025 Procedure Pass [facility] Cardiology Division [address], [address] [place] [address] 03/29/2025 Procedure Pass [facility] Cardiology Division [address], [address] [place] [address] 04/28/2025 Procedure Pass [facility] Cardiology Division [address], [address] [place] [address] 05/30/2025 Procedure Pass [facility] Cardiology Division [address], [address] [place] [address] 05/30/2025 Procedure Pass [facility] Cardiology Division [address], [address] [place] [address] 06/28/2025 11:00 AM EST Appointment [facility] Cardiology Division [address], [address] [place] [address] Sky Castano MD, PhD [address] [address] [email or web address] 07/29/2025 10:00 AM EST Appointment [facility] Cardiology Division [address], [address] [place] [address] Sky Castano MD, PhD [address] [address] [email or web address] 08/29/2025 10:00 AM EST Appointment [facility] Cardiology Division [address], [address] [place] [address] Sky Castano MD, PhD [address] [address] [email or web address] 01/17/2026 9:00 AM EDT Office Visit [facility] Internal Medicine 40 [place] [address] Parish Strauss MD 40 [place] [address] 03/13/2026 11:30 AM EDT Office Visit [facility] Cardiac Arrhythmia Service [address] [place] [address], 5th Floor, [address] [place] [address] Charla Darden PA-C [address] [place] [address] [email or web address] documented as of this encounter Visit Diagnoses Not on filedocumented in this encounter Additional Health Concerns Assessment Noted Time PHQ-2 Depression Total Score: 0 01/15/20 22 9:04 AM EDT documented as of this encounter Care Teams Rubber Mill Operator Relationship Specialty Start Date End Date Parish Strauss MD 40 [place] [address] [email or web address] PCP - General 02/14/14 Christiano Hargrove MD [address] [place] [address] Drive [address] [place] [address] Gastroenterology 01/13/20 Craig Porter MD [address] [place] [address] [address] [place] [phone] [email or web address] Urology 12/28/20 Michelle Kwong MD [address] [place] [address] Drive [address] [place] [address] Obstetrics and Gynecology 12/28/20 Parish Strauss MD 40 [place] [address] [email or web address] Insurance Assigned Provider 11/21/23 08/22/24 documented as of this encounter Additional Source Comments The information contained in this document represents components of the legal health record. It is not the complete legal health record.[facility]
--- OUTSIDE RECORDS SUMMARY | 2025-06-01 09:15 | XMS_ITS | Encounter Summary ---
Author Organization [facility] Address [address] [facility] [address] [place] [address] Phone Care Team Providers Care Battery Tester Field Name Role Phone Parish Strauss MD Primary Care Provider [phone] Christiano Hargrove MD Unavailable [phone] Parish Strauss MD Unavailable [phone] Craig Porter MD Unavailable [phone] Michelle Kwong MD Unavailable [phone] Parish Strauss MD Unavailable [phone] Encounter Details Date Type Department Care Team (Late st Contact Info) Description 06/06/2020 Procedure Pass [facility] Cardiology Division [address] [facility], [address] [place] [address] Social History Tobacco Use Types Packs/Day Years [...] st Contact Info) Description 12/26/2024 Procedure Pass [facility] Cardiology Division [address] [facility], [address] [place] [address] 01/26/2025 Procedure Pass [facility] Cardiology Division [address], [address] [place] [address] 02/24/2025 Procedure Pass [facility] Cardiology Division [address], [address] [place] [address] 03/29/2025 Procedure Pass [facility] Cardiology Division [address], [address] [place] [address] 04/28/2025 Procedure Pass [facility] Cardiology Division [address] [address], [address] [place] [address] 05/30/2025 Procedure Pass [facility] Cardiology Division [address], [address] [place] [address] 05/30/2025 Procedure Pass [facility] Cardiology Division [address], [address] [place] [address] 06/28/2025 11:00 AM EST Appointment [facility] Cardiology Division [address], [address] [place] [address] Sky Castano MD, PhD [address] [address] [email or web address] 07/29/2025 10:00 AM EST Appointment [facility] Cardiology Division [address], [address] [place] [address] Sky Castano MD, PhD [address] [facility] [address] [place] [address] [email or web address] 08/29/2025 10:00 AM EST Appointment [facility] Cardiology Division [address], [address] [place] [address] Sky Castano MD, PhD 55 [facility] [place] 800 [place] [address] [email or web address] 01/17/2026 9:00 AM EDT Office Visit [facility] [place] Internal Medicine 40 [place], [place] [phone] Parish Strauss MD 40 [place], [place] [address] 03/13/2026 11:30 AM EDT Office Visit [facility] Cardiac Arrhythmia Service [address] [place] [address], 5th Floor, [address] [place] [address] Charla Darden PA-C [address] [place] [address] [email or web address] documented as of this encounter Visit Diagnoses Not on filedocumented in this encounter Additional Health Concerns Infection Onset Date Last Indicated Resolved Time CoV-Exposed Comment:Recent close contact 06/22/2020 06/22/2020 07/06/2020 1:24 AM EST Assessment Noted Time PHQ-2 Depression Total Score: 0 03/09/20 18 3:03 PM EDT documented as of this encounter Care Teams Battery Tester Field Relationship Specialty Start Date End Date Parish Strauss MD 40 [place] [address] PCP - General 02/14/14 Christiano Hargrove MD [address] [place] [address] Gastroenterology 01/13/20 Parish Strauss MD 40 [place] [address] [email or web address] Insurance Assigned Provider 11/24/20 08/24/21 Craig Porter MD [address] [address] [email or web address] Urology 12/28/20 Michelle Kwong MD [address] [place] [address] Drive [address] [place] [address] Obstetrics and Gynecology 12/28/20 Parish Strauss MD [address] [place] [address] [email or web address] Insurance Assigned Provider 11/21/23 08/22/24 documented as of this encounter Additional Source Comments The information contained in this document represents components of the legal health record. It is not the complete legal health record.[facility]
--- OUTSIDE RECORDS SUMMARY | 2025-06-01 09:15 | XMS_ITS | Encounter Summary ---
Author Organization [facility] Address [address] [facility] [address] [place] [address] Phone Care Team Providers Care Accountant Controller Name Role Phone Parish Strauss MD Primary Care Provider [phone] Christiano Hargrove MD Unavailable [phone] Craig Porter MD Unavailable [phone] Michelle Kwong MD Unavailable [phone] Parish Strauss MD Unavailable [phone] Encounter Details Date Type Department Care Team (Late st Contact Info) Description 10/19/2023 Procedure Pass [facility] Cardiology Division [address] [facility], [address] [place] [address] Social History Tobacco Use Types Packs/Day Years [...] Info) Description 12/26/2024 Procedure Pass [facility] Cardiology Division [address], [address] [place] [address] 01/26/2025 Procedure Pass [facility] Cardiology Division [address], [address] [place] [address] 02/24/2025 Procedure Pass [facility] Cardiology Division [address] [address], [address] [place] [address] 03/29/2025 Procedure Pass [facility] Cardiology Division [address], [address] [place] [address] 04/28/2025 Procedure Pass [facility] Cardiology Division [address], [address] [place] [address] 05/30/2025 Procedure Pass [facility] Cardiology Division [address] [address], [address] [place] [address] 05/30/2025 Procedure Pass [facility] Cardiology Division [address], [address] [place] [address] 06/28/2025 11:00 AM EST Appointment [facility] Cardiology Division [address], [address] [place] [address] Sky Castano MD, PhD [address] [place] [address] [email or web address] 07/29/2025 10:00 AM EST Appointment [facility] Cardiology Division [address] [address], [address] [place] [address] Sky Castano MD, PhD [address] [place] [address] [email or web address] 08/29/2025 10:00 AM EST Appointment [facility] Cardiology Division [address] [facility], [address] [place] [address] Sky Castano MD, PhD [address] [facility] [address] [place] [address] [email or web address] 01/17/2026 9:00 AM EDT Office Visit [facility] Internal Medicine 40 [place] [address] Parish Strauss MD 40 [place] [address] [email or web address] 03/13/2026 11:30 AM EDT Office Visit [facility] Cardiac Arrhythmia Service [address] [facility], 5th Floor, [address] [place] [address] Charla Darden PA-C [address], [place] [address] [email or web address] documented as of this encounter Visit Diagnoses Not on filedocumented in this encounter Additional Health Concerns Assessment Noted Time PHQ-2 Depression Total Score: 0 01/21/20 23 8:51 AM EDT documented as of this encounter Care Teams Accountant Controller Relationship Specialty Start Date End Date Parish Strauss MD 40 [place] [address] [email or web address] PCP - General 02/14/14 Christiano Hargrove MD [address] [place] [address] Gastroenterology 01/13/20 Craig Porter MD [address] [facility] 120 [place] [phone] [email or web address] Urology 12/28/20 Michelle Kwong MD [address] [place] [address] [address] [place] [address] Obstetrics and Gynecology 12/28/20 Parish Strauss MD [address] [place] [address] [email or web address] Insurance Assigned Provider 11/21/23 08/22/24 documented as of this encounter Additional Source Comments The information contained in this document represents components of the legal health record. It is not the complete legal health record.[facility]
--- OUTSIDE RECORDS SUMMARY | 2025-06-01 09:15 | XMS_ITS | Encounter Summary ---
Author Organization [facility] Address [address] [place] [address] [place] [address] Phone Care Team Providers Care Supervisor Rolling Room Name Role Phone Parish Strauss MD Primary Care Provider [phone] Christiano Hargrove MD Unavailable [phone] Craig Porter MD Unavailable [phone] Michelle Kwong MD Unavailable [phone] Parish Strauss MD Unavailable [phone] Encounter Details Date Type Department Care Team (Late st Contact Info) Description 12/25/2022 Procedure Pass [facility] Cardiology Division [address] [place] [address], [address] [place] [address] Social History Tobacco Use Types Packs/Day Years Used Date Smoking Tobacco: Never Smokeless Tobacco: Never Alcohol Use Standard Drinks/Week Comments No 0 (1 standard drink = 0.6 oz pur e alcohol) Education Answer Date Recorded Are you interested in more education? Not on denis e 12/12/2022 Are you concerned about learning? Not on file 12/12/2022 No 12/12/2022 No 12/12/2022 Comments Unknown Sex and Gender Information Value Date Recorded Sex Assigned at Female 12/21/2019 10:03 AM EDT Legal Sex Female 8:13 PM EST Gender Identity Female 12/21/2019 10:03 AM EDT Sexual Orientation Not on file documented as of this encounter Plan of Treatment Upcoming Encounters Date Type Department Care Team (Late st Contact Info) Description 12/26/2024 Procedure Pass [facility] Cardiology Division [address] [place] [address], [address] [place] [address] 01/26/2025 Procedure Pass [facility]iology Division [address] [place] [address], [address] [place] [address] 02/24/2025 Procedure Pass [facility]iology Division [address] [place] [address], [address] [place] [address] 03/29/2025 Procedure Pass [facility]iology Division [address] [place] [facility], [address] [place] [address] 04/28/2025 Procedure Pass [facility]iology Division [address] [place] [facility], [address] [place] [address] 05/30/2025 Procedure Pass [facility] Cardiology Division [address] [place] [facility], [address] [place] [address] 05/30/2025 Procedure Pass [facility]iology Division [address] [place] [facility], [address] [place] [address] 06/28/2025 11:00 AM EST Appointment [facility]iology Division [address] [place] [facility], [address] [place] [address] Sky Castano MD, PhD [address] [place] [address] [email or web address] 07/29/2025 10:00 AM EST Appointment [facility]iology Division [address] [place] [facility], [address] [place] [address] Sky Castano MD, PhD [address] [place], [place] [address] [place] [address] [email or web address] [email or web address] 08/29/2025 10:00 AM EST Appointment [facility] Cardiology Division [address] [place] [address], [address] [place] [address] Sky Castano MD, PhD 55 [facility] 800 [place] [address] [email or web address] 01/17/2026 9:00 AM EDT Office Visit [facility] Internal Medicine 40 [place] [address] Parish Strauss MD 40 [place] [address] [email or web address] 03/13/2026 11:30 AM EDT Office Visit [facility] Cardiac Arrhythmia Service [address] [place] [address], 5th Floor, [address] [place] [address] Charla Darden PA-C [address] [address] [email or web address] documented as of this encounter Visit Diagnoses Not on filedocumented in this encounter Additional Health Concerns Assessment Noted Time PHQ-2 Depression Total Score: 0 01/21/20 23 8:51 AM EDT documented as of this encounter Care Teams Supervisor Rolling Room Relationship Specialty Start Date End Date Parish Strauss MD 40 [place] [address] [email or web address] PCP - General 02/14/14 Christiano Hargrove MD [address] [place] [address] Gastroenterology 01/13/20 Craig Porter MD 100 [facility] 120 [place] [address] [email or web address] Urology 12/28/20 Michelle Kwong MD [address] [place] [address] Drive [address] [place] [address] Obstetrics and Gynecology 12/28/20 Parish Strauss MD [address] [place] [address] [email or web address] Insurance Assigned Provider 11/21/23 08/22/24 documented as of this encounter Additional Source Comments The information contained in this document represents components of the legal health record. It is not the complete legal health record.[facility]
--- OUTSIDE RECORDS SUMMARY | 2025-06-01 09:15 | XMS_ITS | Encounter Summary ---
Author Organization [facility] Address [address] [facility] [address] [place] [address] Phone Care Team Providers Care Retail Helper Name Role Phone Parish Strauss MD Primary Care Provider [phone] Christiano Hargrove MD Unavailable Craig Porter MD Unavailable [phone] Michelle Kwong MD Unavailable [phone] Parish Strauss MD Unavailable [phone] Encounter Details Date Type Department Care Team (Late st Contact Info) Description 01/28/2023 Procedure Pass [facility] Cardiology Division [address] [facility], [address] [place] [address] Social History Tobacco Use Types Packs/Day Years [...] st Contact Info) Description 12/26/2024 Procedure Pass [facility] Cardiology Division [address] [place] [address], [address] [place] [address] 01/26/2025 Procedure Pass [facility] Cardiology Division [address] [place] [address], [address] [place] [address] 02/24/2025 Procedure Pass [facility] Cardiology Division [address] [place] [address], [address] [place] [address] 03/29/2025 Procedure Pass [facility] Cardiology Division [address] [place] [address], [address] [place] [address] 04/28/2025 Procedure Pass [facility] Cardiology Division [address] [place] [address], [address] [place] [address] 05/30/2025 Procedure Pass [facility] Cardiology Division [address] [place] [facility], [address] [place] [address] 05/30/2025 Procedure Pass [facility] Cardiology Division [address] [place] [address], [address] [place] [address] 06/28/2025 11:00 AM EST Appointment [facility] Cardiology Division [address] [place] [facility], [address] [place] [address] Sky Castano MD, PhD [address] [place] [email or web address] 07/29/2025 10:00 AM EST Appointment [facility] Cardiology Division [address] [place] [facility], [address] [place] [address] Sky Castano MD, PhD [address] [place] [address] [email or web address] 08/29/2025 10:00 AM EST Appointment [facility] Cardiology Division 55 [facility], [address] [place] [address] Sky Castano MD, PhD 55 [facility] 800 [place] [address] [email or web address] 01/17/2026 9:00 AM EDT Office Visit [facility] Internal Medicine 40 [place] [address] Parish Strauss MD 40 [place] [address] [email or web address] 03/13/2026 11:30 AM EDT Office Visit [facility] Cardiac Arrhythmia Service [address] [facility], 5th Floor, [address] [place] [address] Charla Darden PA-C [address], [place] [address] [email or web address] documented as of this encounter Visit Diagnoses Not on filedocumented in this encounter Additional Health Concerns Assessment Noted Time PHQ-2 Depression Total Score: 0 01/21/20 23 8:51 AM EDT documented as of this encounter Care Teams Retail Helper Relationship Specialty Start Date End Date Parish Strauss MD 40 [place] [address] [email or web address] PCP - General 02/14/14 Christiano Hargrove MD [address] [place] [address] Gastroenterology 01/13/20 Craig Porter MD 100 [facility] 120 [place] [phone] [email or web address] Urology 12/28/20 Michelle Kwong MD [address] [place] [address] [address] [place] [address] Obstetrics and Gynecology 12/28/20 Parish Strauss MD [address] [place] [address] [email or web address] Insurance Assigned Provider 11/21/23 08/22/24 documented as of this encounter Additional Source Comments The information contained in this document represents components of the legal health record. It is not the complete legal health record.[facility]
--- OUTSIDE RECORDS SUMMARY | 2025-06-01 09:15 | XMS_ITS | Encounter Summary ---
Author Organization [facility] Address [address] [place] [address] Phone Care Team Providers Care Manager Golf Name Role Phone Parish Strauss MD Primary Care Provider [phone] Christiano Hargrove MD Unavailable [phone] Craig Porter MD Unavailable [phone] Michelle Kwong MD Unavailable [phone] Encounter Details Date Type Department Care Team (Late st Contact Info) Description 10/26/2024 Procedure Pass [facility] [place] [place] 55 [facility], [address] [place], [place] [id number] Social History Tobacco Use Types Packs/Day Years [...] Contact Info) Description 12/26/2024 Procedure Pass [facility] [place] [address] [facility], [address] [place] [address] 01/26/2025 Procedure Pass [facility] [address] [place] [address] [facility], [address] [place] [address] 02/24/2025 Procedure Pass [facility] [address] [facility], [address] [place] [address] 03/29/2025 Procedure Pass [facility] [address] [place] [address], [address] [place] [address] 04/28/2025 Procedure Pass [facility] [address] [place] [address], [address] [place] [address] 05/30/2025 Procedure Pass [facility] [address] [place] [address], [address] [place] [address] 05/30/2025 Procedure Pass [facility] [address] [place] [facility], [address] [place] [address] 06/28/2025 11:00 AM EST Appointment [facility] [address] [facility] [facility], [address] [place] [address] Sky Castano MD, PhD 55 [facility] 800 [place] [address] [email or web address] 07/29/2025 10:00 AM EST Appointment [facility] 55 [facility], [address] [place] [address] Sky Castano MD, PhD [address] [address] [email or web address] 08/29/2025 10:00 AM EST Appointment [facility] 55 [facility], [address] [place] [address] Sky Castano MD, PhD 55 [facility] 800 [place] [address] [email or web address] 01/17/2026 9:00 AM EDT Office Visit [facility] Internal Medicine 40 [place] [address] Parish Strauss MD 40 [place] [address] [email or web address] 03/13/2026 11:30 AM EDT Office Visit [facility]ia [facility] 32 [facility], 5th Floor, [address] [place] [address] Charla Darden PA-C [address] [place] [address] [email or web address] documented as of this encounter Visit Diagnoses Not on filedocumented in this encounter Additional Health Concerns Assessment Noted Time PHQ-2 Depression Total Score: 0 03/07/20 8:52 AM EDT documented as of this encounter Care Teams Manager Golf Relationship Specialty Start Date End Date Parish Strauss MD 40 [place] [address] [email or web address] PCP - General 02/14/14 Christiano Hargrove MD [address] [facility] [address] [place] [address] Gastroenterology 01/13/20 Craig Porter MD [address] [facility] [address] [place] [phone] [email or web address] Urology 12/28/20 Michelle Kwong MD [address] [facility] [address] [place] [address] Obstetrics and Gynecology 12/28/20 documented as of this encounter Additional Source Comments The information contained in this document represents components of the legal health record. It is not the complete legal health record.[facility]
--- OUTSIDE RECORDS SUMMARY | 2025-06-01 09:16 | XMS_ITS | Encounter Summary ---
Author Organization [facility] Address [address] [facility] [address] [place] [address] Phone Care Team Providers Care Internet And E Business Project Manager Name Role Phone Parish Strauss MD Primary Care Provider Christiano Hargrove MD Unavailable [phone] Craig Porter MD Unavailable [phone] Michelle Kwong MD Unavailable [phone] Parish Strauss MD Unavailable [phone] Encounter Details Date Type Department Care Team (Late st Contact Info) Description 09/26/2022 Procedure Pass [facility] [address] [facility], [address] [place] [address] Social History Tobacco Use Types Packs/Day Years [...] [facility] [address] [facility], [address] [place] [address] 01/26/2025 Procedure Pass [facility] [address] [facility], [address] [place] [address] 02/24/2025 Procedure Pass [facility] [address] [place] [facility], [address] [place] [address] 03/29/2025 Procedure Pass [facility] [address] [place] [address], [address] [place] [address] 04/28/2025 Procedure Pass [facility] [address] [place] [address], [address] [place] [address] 05/30/2025 Procedure Pass [facility] [address] [place] [facility], [address] [place] [address] 05/30/2025 Procedure Pass [facility] [address] [place] [address], [address] [place] [address] 06/28/2025 11:00 AM EST Appointment [facility] [address] [place] [address], [address] [place] [address] Sky Castano MD, PhD [address] [address] [email or web address] 07/29/2025 10:00 AM EST Appointment [facility] [address] [place] [address], [address] [place] [address] Sky Castano MD, PhD [address] [address] [email or web address] 08/29/2025 10:00 AM EST Appointment [facility] [address] [place] [address], [address] [place] [address] Sky Castano MD, PhD [address] [address] [email or web address] 01/17/2026 9:00 AM EDT Office Visit [facility] Internal Medicine 40 [place] [address] Parish Strauss MD 40 [place] [address] 03/13/2026 11:30 AM EDT Office Visit [facility]ia Service [address] [place] [address], 5th Floor, [address] [place] [address] Charla Darden PA-C [address] [place] [address] [email or web address] documented as of this encounter Visit Diagnoses Not on filedocumented in this encounter Additional Health Concerns Assessment Noted Time PHQ-2 Depression Total Score: 0 01/15/20 22 9:04 AM EDT documented as of this encounter Care Teams Internet And E Business Project Manager Relationship Specialty Start Date End Date Parish Strauss MD 40 [place] [address] [email or web address] PCP - General 02/14/14 Christiano Hargrove MD [address] [place] [address] Drive [address] [place] [address] Gastroenterology 01/13/20 Craig Porter MD [address] [place] [address] 120 [place] [phone] [email or web address] Urology 12/28/20 Michelle Kwong MD [address] [place] [address] Drive [address] [place] [phone] Obstetrics and Gynecology 12/28/20 Parish Strauss MD 40 [place] [address] [email or web address] Insurance Assigned Provider 11/21/23 08/22/24 documented as of this encounter Additional Source Comments The information contained in this document represents components of the legal health record. It is not the complete legal health record.[facility]
--- OUTSIDE RECORDS SUMMARY | 2025-06-01 09:16 | XMS_ITS | Encounter Summary ---
Author Organization [facility] Address [address] [facility] [address] [place] [address] Phone Care Team Providers Care Financial Investment Manager Name Role Phone Parish Strauss MD Primary Care Provider [phone] Christiano Hargrove MD Unavailable [phone] Craig Porter MD Unavailable [phone] Michelle Kwong MD Unavailable [phone] Encounter Details Date Type Department Care Team (Late st Contact Info) Description 08/23/[address] [facility] Cardiology Division [address] [facility], [address] [place], [place] [address] Social History Tobacco Use Types Packs/Day Years [...] Description 12/26/[address] [facility] Cardiology Division [address] [facility], [address] [place] [address] 01/26/[address] [facility] Cardiology Division [address] [place] [address] [facility], [address] [place] [address] 02/24/[address] [facility] Cardiology Division [address] [address], [address] [place] [address] 03/29/[address] [facility] Cardiology Division [address] [facility], [address] [place] [address] 04/28/[address] [facility] Cardiology Division [address] [place] [address], [address] [place] [address] 05/30/[address] [facility] Cardiology Division [address] [place] [address], [address] [place] [address] 05/30/[address] [facility] Cardiology Division [address] [facility], [address] [place] [address] 06/28/2025 11:[address] [facility] Cardiology Division [address] [place] [facility], [address] [place] [address] Sky Castano MD, PhD 55 [facility] 800 [place] [address] [email or web address] 07/29/2025 10:[address] [facility] Cardiology Division 55 [facility], [address] [place] [address] Sky Castano MD, PhD [address] [address] [email or web address] 08/29/2025 10:[address] [facility] Cardiology Division [address] [facility], [address] [place] [address] Sky Castano MD, PhD 55 [facility] 800 [place] [address] [email or web address] 01/17/2026 9:00 AM EDT Office Visit [facility] Internal Medicine 40 [place] [address] Parish Strauss MD 40 [place] [address] [email or web address] 03/13/2026 11:30 AM EDT Office Visit [facility] Cardiac Arrhythmia Service [address] [facility], 5th Floor, [address] [place] [address] Charla Darden PA-C [address] [place] [address] [email or web address] documented as of this encounter Visit Diagnoses Not on filedocumented in this encounter Additional Health Concerns Assessment Noted Time PHQ-2 Depression Total Score: 0 03/07/20 8:52 AM EDT documented as of this encounter Care Teams Financial Investment Manager Relationship Specialty Start Date End Date Parish Strauss MD 40 [place] [address] [email or web address] PCP - General 02/14/14 Christiano Hargrove MD [address] [facility] [address] [place] [address] Gastroenterology 01/13/20 Craig Porter MD [address] [facility] [address] [place] [phone] [email or web address] Urology 12/28/20 Michelle Kwong MD [address] [facility] [address] [place] [address] Obstetrics and Gynecology 12/28/20 documented as of this encounter Additional Source Comments The information contained in this document represents components of the legal health record. It is not the complete legal health record.[facility]
--- OUTSIDE RECORDS SUMMARY | 2025-06-01 09:16 | XMS_ITS | Encounter Summary ---
Author Organization [facility] Address [address] [place] [address] Phone Care Team Providers Care Chief Cloth Finishing Range Operator Name Role Phone Parish Strauss MD Primary Care Provider [phone] Christiano Hargrove MD Unavailable Craig Porter MD Unavailable [phone] Michelle Kwong MD Unavailable [phone] Parish Strauss MD Unavailable [phone] Encounter Details Date Type Department Care Team (Late st Contact Info) Description 05/14/2023 Procedure Pass [facility] [address] [facility], [address] [place] [address] Social History Tobacco Use Types Packs/Day Years [...] Info) Description 12/26/2024 Procedure Pass [facility] [address], [address] [place] [address] 01/26/2025 Procedure Pass [facility] [address], [address] [place] [address] 02/24/2025 Procedure Pass [facility] [address] [facility], [address] [place] [address] 03/29/2025 Procedure Pass [facility] [address], [address] [place] [address] 04/28/2025 Procedure Pass [facility] [address] [facility], [address] [place] [address] 05/30/2025 Procedure Pass [facility] [address], [address] [place] [address] 05/30/2025 Procedure Pass [facility] [address], [address] [place] [address] 06/28/2025 11:00 AM EST Appointment [facility] [address], [address] [place] [address] Sky Castano MD, PhD [address] [place] [address] [email or web address] 07/29/2025 10:00 AM EST Appointment [facility] [address], [address] [place] [address] Sky Castano MD, PhD [address] [place] [address] [email or web address] 08/29/2025 10:00 AM EST Appointment [facility] [address] [facility], [address] [place] [address] Sky Castano MD, PhD [address] [facility] [address] [place] [address] [email or web address] 01/17/2026 9:00 AM EDT Office Visit [facility] Internal Medicine 40 [place] [address] Parish Strauss MD 40 [place] [address] [email or web address] 03/13/2026 11:30 AM EDT Office Visit [facility]ia Service [address] [facility], 5th Floor, [address] [place] [address] Charla Darden PA-C [address] [address] [email or web address] documented as of this encounter Visit Diagnoses Not on filedocumented in this encounter Additional Health Concerns Assessment Noted Time PHQ-2 Depression Total Score: 0 01/21/20 23 8:51 AM EDT documented as of this encounter Care Teams Chief Cloth Finishing Range Operator Relationship Specialty Start Date End Date Parish Strauss MD 40 [place] [address] [email or web address] PCP - General 02/14/14 Christiano Hargrove MD [address] [place] [address] Gastroenterology 01/13/20 Craig Porter MD 100 [facility] 120 [place] [phone] [email or web address] Urology 12/28/20 Michelle Kwong MD [address] [place] [address] [address] [place] [address] Obstetrics and Gynecology 12/28/20 Parish Strauss MD [address] [place] [address] [email or web address] Insurance Assigned Provider 11/21/23 08/22/24 documented as of this encounter Additional Source Comments The information contained in this document represents components of the legal health record. It is not the complete legal health record.[facility]
--- OUTSIDE RECORDS SUMMARY | 2025-06-01 09:16 | XMS_ITS | Encounter Summary ---
Author Organization [facility] Address [address] [place] [address] Phone Care Team Providers Care Tumbler Tender Name Role Phone Parish Strauss MD Primary Care Provider Christiano Hargrove MD Unavailable [phone] Craig Porter MD Unavailable [phone] Michelle Kwong MD Unavailable [phone] Encounter Details Date Type Department Care Team (Late st Contact Info) Description 09/22/2024 Procedure Pass [facility] Cardiology Division [address] [facility], [address] [place], [place] [id number] Social History Tobacco Use Types Packs/Day Years [...] st Contact Info) Description 12/26/2024 Procedure Pass [facility] Cardiology Division [address] [facility], [address] [place] [address] 01/26/2025 Procedure Pass [facility] Cardiology Division [address] [place] [address] [facility], [address] [place] [address] 02/24/2025 Procedure Pass [facility] Cardiology Division [address] [facility], [address] [place] [address] 03/29/2025 Procedure Pass [facility] Cardiology Division [address], [address] [place] [address] 04/28/2025 Procedure Pass [facility] Cardiology Division [address], [address] [place] [address] 05/30/2025 Procedure Pass [facility] Cardiology Division [address], [address] [place] [address] 05/30/2025 Procedure Pass [facility] Cardiology Division [address] [facility], [address] [place] [address] 06/28/2025 11:00 AM EST Appointment [facility] Cardiology Division [address] [facility] [facility], [address] [place] [address] Sky Castano MD, PhD 55 [facility] 800 [place] [address] [email or web address] 07/29/2025 10:00 AM EST Appointment [facility] Cardiology Division [address] [facility], [address] [place] [address] Sky Castano MD, PhD [address] [address] [email or web address] 08/29/2025 10:00 AM EST Appointment [facility] Cardiology Division [address] [facility], [address] [place] [address] Sky Castano MD, PhD 55 [facility] 800 [place] [address] [email or web address] 01/17/2026 9:00 AM EDT Office Visit [facility] Internal Medicine 40 [place] [address] Parish Strauss MD 40 [place] [address] [email or web address] 03/13/2026 11:30 AM EDT Office Visit [facility] Cardiac Arrhythmia Service [address] [facility], 5th Floor, [address] [place] [address] Charla Darden PA-C [address] [place] [address] [email or web address] documented as of this encounter Visit Diagnoses Not on filedocumented in this encounter Additional Health Concerns Assessment Noted Time PHQ-2 Depression Total Score: 0 03/07/20 8:52 AM EDT documented as of this encounter Care Teams Tumbler Tender Relationship Specialty Start Date End Date Parish Strauss MD 40 [place] [address] [email or web address] PCP - General 02/14/14 Christiano Hargrove MD [address] [place] [address] Gastroenterology 01/13/20 Craig Porter MD [address] [facility] [address] [place] [phone] [email or web address] Urology 12/28/20 Michelle Kwong MD [address] [place] [address] Obstetrics and Gynecology 12/28/20 documented as of this encounter Additional Source Comments The information contained in this document represents components of the legal health record. It is not the complete legal health record.[facility]
--- OUTSIDE RECORDS SUMMARY | 2025-06-01 09:18 | XMS_ITS | Encounter Summary ---
Author Organization [facility] Address [address] [facility] [address] [place] [address] Phone Care Team Providers Care Silk Washing Machine Operator Name Role Phone Parish Strauss MD Primary Care Provider Christiano Hargrove MD Unavailable [phone] Craig Porter MD Unavailable [phone] Michelle Kwong MD Unavailable [phone] Parish Strauss MD Unavailable [phone] Encounter Details Date Type Department Care Team (Late st Contact Info) Description 08/27/2022 Procedure Pass [facility] Cardiology Division [address] [facility], [address] [place] [address] Social History Tobacco Use Types Packs/Day Years [...] st Contact Info) Description 12/26/2024 Procedure Pass [facility] Cardiology Division [address] [facility], [address] [place] [address] 01/26/2025 Procedure Pass [facility] Cardiology Division [address] [facility], [address] [place] [address] 02/24/2025 Procedure Pass [facility] Cardiology Division [address], [address] [place] [address] 03/29/2025 Procedure Pass [facility] Cardiology Division [address], [address] [place] [address] 04/28/2025 Procedure Pass [facility] Cardiology Division [address] [facility], [address] [place] [address] 05/30/2025 Procedure Pass [facility] Cardiology Division [address] [facility], [address] [place] [address] 05/30/2025 Procedure Pass [facility] Cardiology Division [address] [facility], [address] [place] [address] 06/28/2025 11:00 AM EST Appointment [facility] Cardiology Division [address] [facility], [address] [place] [address] Sky Castano MD, PhD [address] [address] [email or web address] 07/29/2025 10:00 AM EST Appointment [facility] Cardiology Division [address] [facility], [address] [place] [address] Sky Castano MD, PhD [address] [address] [email or web address] 08/29/2025 10:00 AM EST Appointment [facility] Cardiology Division [address] [facility], [address] [place] [address] Sky Castano MD, PhD [address] [address] [email or web address] 01/17/2026 9:00 AM EDT Office Visit [facility] Internal Medicine 40 [place] [address] Parish Strauss MD 40 [place] [address] 03/13/2026 11:30 AM EDT Office Visit [facility] Cardiac Arrhythmia Service [address] [place] [address], 5th Floor, [address] [place] [address] Charla Darden PA-C [address] [place] [address] [email or web address] documented as of this encounter Visit Diagnoses Not on filedocumented in this encounter Additional Health Concerns Assessment Noted Time PHQ-2 Depression Total Score: 0 01/15/20 22 9:04 AM EDT documented as of this encounter Care Teams Silk Washing Machine Operator Relationship Specialty Start Date End Date Parish Strauss MD 40 [place] [address] [email or web address] PCP - General 02/14/14 Christiano Hargrove MD [address] [place] [address] Drive [address] [place] [address] Gastroenterology 01/13/20 Craig Porter MD [address] [place] [address] 120 [place] [phone] [email or web address] Urology 12/28/20 Michelle Kwong MD [address] [place] [address] Drive [address] [place] [phone] Obstetrics and Gynecology 12/28/20 Parish Strauss MD 40 [place] [address] [email or web address] Insurance Assigned Provider 11/21/23 08/22/24 documented as of this encounter Additional Source Comments The information contained in this document represents components of the legal health record. It is not the complete legal health record.[facility]
--- OUTSIDE RECORDS SUMMARY | 2025-06-01 09:18 | XMS_ITS | Encounter Summary ---
Author Organization [facility] Address [address] [facility] [address] [place] [address] Phone Care Team Providers Care Ladies' Hat Trimmer Name Role Phone Parish Strauss MD Primary Care Provider [phone] Christiano Hargrove MD Unavailable [phone] Craig Porter MD Unavailable [phone] Michelle Kwong MD Unavailable [phone] Parish Strauss MD Unavailable [phone] Encounter Details Date Type Department Care Team (Late st Contact Info) Description 07/24/2022 Procedure Pass [facility] Cardiology Division [address] [facility], [address] [place] [address] Social History Tobacco Use Types Packs/Day Years [...] st Contact Info) Description 12/26/2024 Procedure Pass [facility] Cardiology Division [address] [facility], [address] [place] [address] 01/26/2025 Procedure Pass [facility] Cardiology Division [address] [facility], [address] [place] [address] 02/24/2025 Procedure Pass [facility] Cardiology Division [address] [facility], [address] [place] [address] 03/29/2025 Procedure Pass [facility] Cardiology Division [address] [facility], [address] [place] [address] 04/28/2025 Procedure Pass [facility] Cardiology Division [address] [facility], [address] [place] [address] 05/30/2025 Procedure Pass [facility] Cardiology Division [address] [facility], [address] [place] [address] 05/30/2025 Procedure Pass [facility] Cardiology Division [address] [facility], [address] [place] [address] 06/28/2025 11:00 AM EST Appointment [facility] Cardiology Division [address] [facility], [address] [place] [address] Sky Castano MD, PhD [address] [address] [email or web address] 07/29/2025 10:00 AM EST Appointment [facility] Cardiology Division [address] [facility], [address] [place] [address] Sky Castano MD, PhD [address] [address] [email or web address] 08/29/2025 10:00 AM EST Appointment [facility] Cardiology Division [address] [facility], [address] [place] [address] Sky Castano MD, PhD [address] [address] [email or web address] 01/17/2026 9:00 AM EDT Office Visit [facility] Internal Medicine 40 [place] [address] Parish Strauss MD 40 [place] [address] 03/13/2026 11:30 AM EDT Office Visit [facility] Cardiac Arrhythmia Service [address] [place] [address], 5th Floor, [address] [place] [address] Charla Darden PA-C [address] [place] [address] [email or web address] documented as of this encounter Visit Diagnoses Not on filedocumented in this encounter Additional Health Concerns Assessment Noted Time PHQ-2 Depression Total Score: 0 01/15/20 22 9:04 AM EDT documented as of this encounter Care Teams Ladies' Hat Trimmer Relationship Specialty Start Date End Date Parish Strauss MD 40 [place] [address] [email or web address] PCP - General 02/14/14 Christiano Hargrove MD [address] [place] [address] Drive [address] [place] [address] Gastroenterology 01/13/20 Craig Porter MD [address] [place] [address] 120 [place] [phone] [email or web address] Urology 12/28/20 Michelle Kwong MD [address] [place] [address] Drive [address] [place] [phone] Obstetrics and Gynecology 12/28/20 Parish Strauss MD 40 [place] [address] [email or web address] Insurance Assigned Provider 11/21/23 08/22/24 documented as of this encounter Additional Source Comments The information contained in this document represents components of the legal health record. It is not the complete legal health record.[facility]
--- OUTSIDE RECORDS SUMMARY | 2025-06-01 09:18 | XMS_ITS | Encounter Summary ---
Author Organization [facility] Address [address] [facility] [address] [place] [address] Phone Care Team Providers Care Corner Block Cutter Name Role Phone Parish Strauss MD Primary Care Provider [phone] Christiano Hargrove MD Unavailable [phone] Craig Porter MD Unavailable [phone] Michelle Kwong MD Unavailable [phone] Parish Strauss MD Unavailable [phone] Encounter Details Date Type Department Care Team (Late st Contact Info) Description 05/21/2024 Procedure Pass [facility] Cardiology Division [address] [facility], [address] [place] [address] Social History Tobacco Use Types Packs/Day Years [...] st Contact Info) Description 12/26/2024 Procedure Pass [facility] Cardiology Division 55 [facility], [address] [place] [address] 01/26/2025 Procedure Pass [facility] Cardiology Division [address] [place] [address] [facility], [address] [place] [address] 02/24/2025 Procedure Pass [facility] Cardiology Division [address] [place] [address]/[facility], [address] [place] [address] 03/29/2025 Procedure Pass [facility] Cardiology Division 55 [facility] [address] [facility], [address] [place] [address] 04/28/2025 Procedure Pass [facility] Cardiology Division [address] [facility], [address] [place] [address] 05/30/2025 Procedure Pass [facility] Cardiology Division 55 [facility] [address] [facility], [address] [place] [address] 05/30/2025 Procedure Pass [facility] Cardiology Division 55 [facility] [address] [facility], [address] [place] [address] 06/28/2025 11:00 AM EST Appointment [facility] Cardiology Division 55 [facility] [address] [facility], [address] [place] [address] Sky Castano MD, PhD 55 [facility] [place] 800 [place] [address] [email or web address] 07/29/2025 10:00 AM EST Appointment [facility] Cardiology Division [address] [facility], [address] [place] [address] Sky Castano MD, PhD [address] [place] [address] [email or web address] 08/29/2025 10:00 AM EST Appointment [facility] Cardiology Division [address] [facility], [address] [place] [address] Sky Castano MD, PhD [address] [place] [address] [email or web address] 01/17/2026 9:00 AM EDT Office Visit [facility] Internal Medicine 40 [place] [address] Parish Strauss MD 40 [place] [address] [email or web address] 03/13/2026 11:30 AM EDT Office Visit [facility] Cardiac Arrhythmia Service [address] [facility], 5th Floor, [address] [place] [address] Charla Darden PA-C [address] [place] [address] [email or web address] documented as of this encounter Visit Diagnoses Not on filedocumented in this encounter Additional Health Concerns Assessment Noted Time PHQ-2 Depression Total Score: 0 03/07/20 24 8:52 AM EDT documented as of this encounter Care Teams Corner Block Cutter Relationship Specialty Start Date End Date Parish Strauss MD 40 [place] [address] [email or web address] PCP - General 02/14/14 Christiano Hargrove MD [address] [place] [address] Drive [address] [place], [place] [phone] Gastroenterology 01/13/20 Craig Porter MD [address] [place] [address] [email or web address] Urology 12/28/20 Michelle Kwong MD [address] [place] [address] Drive [address] [place] [address] Obstetrics and Gynecology 12/28/20 Parish Strauss MD [address] [place] [address] [email or web address] Insurance Assigned Provider 11/21/23 08/22/24 documented as of this encounter Additional Source Comments The information contained in this document represents components of the legal health record. It is not the complete legal health record.[facility]
--- OUTSIDE RECORDS SUMMARY | 2025-06-01 09:20 | XMS_ITS | Encounter Summary ---
Author Organization [facility] Address [address] [place] [address] Phone Care Team Providers Care Acid Purifier Name Role Phone Parish Strauss MD Primary Care Provider [phone] Christiano Hargrove MD Unavailable [phone] Craig Porter MD Unavailable [phone] Michelle Kwong MD Unavailable [phone] Encounter Details Date Type Department Care Team (Late st Contact Info) Description 04/28/2025 Procedure Pass [facility] [address] [facility], [address] [place], [place] [id number] Social History Tobacco Use Types Packs/Day Years [...] Description 12/26/2024 Procedure Pass [facility] [address], [address] [place] [address] 01/26/2025 Procedure Pass [facility] [address] [place] [facility], [address] [place] [address] 02/24/2025 Procedure Pass [facility] [address] [facility], [address] [place] [address] 03/29/2025 Procedure Pass [facility] [address] [place] [facility], [address] [place] [address] 04/28/2025 Procedure Pass [facility] [address] [facility], [address] [place] [address] 05/30/2025 Procedure Pass [facility] [address] [facility], [address] [place] [address] 05/30/2025 Procedure Pass [facility] [address] [address], [address] [place] [address] 06/28/2025 11:00 AM EST Appointment [facility] [address] [facility], [address] [place] [address] Sky Castano MD, PhD 55 [facility] [address] [place] [address] [email or web address] 07/29/2025 10:00 AM EST Appointment [facility] [address] [address], [address] [place] [address] Sky Castano MD, PhD 55 [facility] [address] [place] [address] [email or web address] 08/29/2025 10:00 AM EST Appointment [facility] [address] [facility], [address] [place] [address] Sky Castano MD, PhD 55 [facility] [address] [place] [address] [email or web address] 01/17/2026 9:00 AM EDT Office Visit [facility] Internal Medicine 40 [place] [address] Parish Strauss MD 40 [place] [address] [email or web address] 03/13/2026 11:30 AM EDT Office Visit [facility]ia [facility] [address], 5th [address], [address] [place] [address] Charla Darden PA-C [address], [place] [address] [email or web address] documented as of this encounter Visit Diagnoses Not on filedocumented in this encounter Additional Health Concerns Assessment Noted Time PHQ-2 Depression Total Score: 0 01/14/20 25 8:27 AM EDT documented as of this encounter Care Teams Acid Purifier Relationship Specialty Start Date End Date Parish Strauss MD [address] [place] [address] [id number] [email or web address] PCP - General 02/14/14 Christiano Hargrove MD [address] [place] [address] [address] [place] [address] Gastroenterology 01/13/20 Craig Porter MD [address] [facility] [address] [place] [address] [email or web address] Urology 12/28/20 Michelle Kwong MD [address] [place] [address] Drive [address] [place] [address] Obstetrics and Gynecology 12/28/20 documented as of this encounter Additional Source Comments The information contained in this document represents components of the legal health record. It is not the complete legal health record.[facility]
--- OUTSIDE RECORDS SUMMARY | 2025-06-01 09:21 | XMS_ITS | Encounter Summary ---
Author Organization [facility] Address [address] [facility] [address] [place] [address] Phone Care Team Providers Care Director Of Math Name Role Phone Parish Strauss MD Primary Care Provider [phone] Christiano Hargrove MD Unavailable [phone] Craig Porter MD Unavailable [phone] Michelle Kwong MD Unavailable [phone] Parish Strauss MD Unavailable [phone] Encounter Details Date Type Department Care Team (Late st Contact Info) Description 05/14/2023 Procedure Pass [facility] Cardiology Division [address] [facility], [address] [place] [address] Social History Tobacco Use Types Packs/Day Years [...] st Contact Info) Description 12/26/2024 Procedure Pass [facility] Cardiology Division [address] [address], [address] [place] [address] 01/26/2025 Procedure Pass [facility] Cardiology Division [address] [address], [address] [place] [address] 02/24/2025 Procedure Pass [facility] Cardiology Division [address] [address], [address] [place] [address] 03/29/2025 Procedure Pass [facility] Cardiology Division [address] [address], [address] [place] [address] 04/28/2025 Procedure Pass [facility] Cardiology Division [address] [address], [address] [place] [address] 05/30/2025 Procedure Pass [facility] Cardiology Division [address] [address], [address] [place] [address] 05/30/2025 Procedure Pass [facility] Cardiology Division [address] [address], [address] [place] [address] 06/28/2025 11:00 AM EST Appointment [facility] Cardiology Division [address] [facility], [address] [place] [address] Sky Castano MD, PhD [address] [place] [address] [email or web address] 07/29/2025 10:00 AM EST Appointment [facility] Cardiology Division [address] [place] [facility], [address] [place] [address] Sky Castano MD, PhD [address] [place] [address] [email or web address] 08/29/2025 10:00 AM EST Appointment [facility] Cardiology Division [address] [facility], [address] [place] [address] Sky Castano MD, PhD [address] [facility] [place] [address] [email or web address] 01/17/2026 9:00 AM EDT Office Visit [facility] Internal Medicine 40 [place] [address] Parish Strauss MD 40 [place] [address] [email or web address] 03/13/2026 11:30 AM EDT Office Visit [facility] Cardiac Arrhythmia Service [address] [facility], 5th Floor, [address] [place] [address] Charla Darden PA-C [address] [address] [email or web address] documented as of this encounter Visit Diagnoses Not on filedocumented in this encounter Additional Health Concerns Assessment Noted Time PHQ-2 Depression Total Score: 0 01/21/20 23 8:51 AM EDT documented as of this encounter Care Teams Director Of Math Relationship Specialty Start Date End Date Parish Strauss MD 40 [place] [address] [email or web address] PCP - General 02/14/14 Christiano Hargrove MD [address] [place] [address] Gastroenterology 01/13/20 Craig Porter MD [address] [facility] 120 [place] [address] [email or web address] Urology 12/28/20 Michelle Kwong MD [address] [place] [address] [address] [place] [address] Obstetrics and Gynecology 12/28/20 Parish Strauss MD [address] [place] [address] [email or web address] Insurance Assigned Provider 11/21/23 08/22/24 documented as of this encounter Additional Source Comments The information contained in this document represents components of the legal health record. It is not the complete legal health record.[facility]
--- OUTSIDE RECORDS SUMMARY | 2025-06-01 09:22 | XMS_ITS | Encounter Summary ---
Author Organization [facility] Address [address] [facility] [address] [place] [address] Phone Care Team Providers Care Closing Supervisor Name Role Phone Parish Strauss MD Primary Care Provider [phone] Christiano Hargrove MD Unavailable [phone] Craig Porter MD Unavailable [phone] Michelle Kwong MD Unavailable [phone] Parish Strauss MD Unavailable [phone] Encounter Details Date Type Department Care Team (Late st Contact Info) Description 03/21/2024 Procedure Pass [facility] Card[facility] Division [address] [facility], [address] [place] [address] Social History Tobacco Use Types Packs/Day Years [...] [facility] [address] [facility], [address] [place] [address] 01/26/2025 Procedure Pass [facility] Cardiology Division [address] [place] [address] [facility], [address] [place] [address] 02/24/2025 Procedure Pass [facility] Cardiology Division [address] [place] [address] [facility], [address] [place] [address] 03/29/2025 Procedure Pass [facility] Cardiology Division [address] [place] [address] [facility], [address] [place] [address] 04/28/2025 Procedure Pass [facility] Cardiology Division [address] [facility], [address] [place] [address] 05/30/2025 Procedure Pass [facility] Cardiology Division [address] [place] [facility], [address] [place] [address] 05/30/2025 Procedure Pass [facility] Cardiology Division [address] [place] [address] [facility], [address] [place] [address] 06/28/2025 11:00 AM EST Appointment [facility] Cardiology Division [address] [facility], [address] [place] [address] Sky Castano MD, PhD 55 [facility] 800 [place] [address] [email or web address] 07/29/2025 10:00 AM EST Appointment [facility] Cardiology Division [address] [facility], [address] [place] [address] Sky Castano MD, PhD [address] [place] [address] [email or web address] 08/29/2025 10:00 AM EST Appointment [facility] Cardiology Division [address] [facility], [address] [place] [address] Sky Castano MD, PhD [address] [place] [address] [email or web address] 01/17/2026 9:00 AM EDT Office Visit [facility] Internal Medicine 40 [place] [address] Parish Strauss MD 40 [place], [place] [address] [email or web address] 03/13/2026 11:30 AM EDT Office Visit [facility] Cardiac Arrhythmia Service 32 [facility], 5th Floor, [address] [place] [address] Charla Darden PA-C [address] [place] [address] [email or web address] documented as of this encounter Visit Diagnoses Not on filedocumented in this encounter Additional Health Concerns Assessment Noted Time PHQ-2 Depression Total Score: 0 03/07/20 24 8:52 AM EDT documented as of this encounter Care Teams Closing Supervisor Relationship Specialty Start Date End Date Parish Strauss MD 40 [place] [address] [email or web address] PCP - General 02/14/14 Christiano Hargrove MD [address] [place] [address] Drive [address] [place] [address] Gastroenterology 01/13/20 Craig Porter MD 100 [facility] 120 [place] [address] [email or web address] Urology 12/28/20 Michelle Kwogn MD [address] [place] [address] Drive [address] [place] [address] Obstetrics and Gynecology 12/28/20 Parish Strauss MD [address] [place] [address] [email or web address] Insurance Assigned Provider 11/21/23 08/22/24 documented as of this encounter Additional Source Comments The information contained in this document represents components of the legal health record. It is not the complete legal health record.[facility]
--- OUTSIDE RECORDS SUMMARY | 2025-06-01 09:22 | XMS_ITS | Encounter Summary ---
Author Organization [facility] Address [address] [facility] [address] [place] [address] Phone Care Team Providers Care Blasting Machine Operator Name Role Phone Parish Strauss MD Primary Care Provider [phone] Christiano Hargrove MD Unavailable [phone] Craig Porter MD Unavailable [phone] Michelle Kwong MD Unavailable [phone] Parish Strauss MD Unavailable [phone] Encounter Details Date Type Department Care Team (Late st Contact Info) Description 03/11/2022 Procedure Pass [facility] [address] [facility], [address] [place] [address] Social History Tobacco Use Types Packs/Day Years [...] [facility] [address] [facility], [address] [place] [address] 01/26/2025 Procedure Pass [facility] [address] [facility], [address] [place] [address] 02/24/2025 Procedure Pass [facility] Division [address] [address], [address] [place] [address] 03/29/2025 Procedure Pass [facility] Division [address] [address], [address] [place] [address] 04/28/2025 Procedure Pass [facility] Card[facility] Division [address] [facility], [address] [place] [address] 05/30/2025 Procedure Pass [facility] Division [address] [facility], [address] [place] [address] 05/30/2025 Procedure Pass [facility] Card[facility] Division [address] [facility], [address] [place] [address] 06/28/2025 11:00 AM EST Appointment [facility] Cardiology Division [address] [address], [address] [place] [address] Sky Castano MD, PhD [address] [address] [email or web address] 07/29/2025 10:00 AM EST Appointment [facility] Cardiology Division [address] [place] [facility], [address] [place] [address] Sky Castano MD, PhD [address] [address] [email or web address] 08/29/2025 10:00 AM EST Appointment [facility] Card[facility] Division [address] [address], [address] [place] [address] Sky Castano MD, PhD [address] [address] [email or web address] 01/17/2026 9:00 AM EDT Office Visit [facility] Internal Medicine 40 [place] [address] Parish Strauss MD 40 [place] [address] 03/13/2026 11:30 AM EDT Office Visit [facility] Cardiac Arrhythmia Service [address] [place] [address], 5th Floor, [address] [place] [address] Charla Darden PA-C [address] [place] [address] [email or web address] documented as of this encounter Visit Diagnoses Not on filedocumented in this encounter Additional Health Concerns Assessment Noted Time PHQ-2 Depression Total Score: 0 01/15/20 22 9:04 AM EDT documented as of this encounter Care Teams Blasting Machine Operator Relationship Specialty Start Date End Date Parish Strauss MD 40 [place] [address] [email or web address] PCP - General 02/14/14 Christiano Hargrove MD [address] [place] [address] Drive [address] [place] [address] Gastroenterology 01/13/20 Craig Porter MD [address] [place] [address] [address] [place] [address] [email or web address] Urology 12/28/20 Michelle Kwong MD [address] [place] [address] Drive [address] [place] [address] Obstetrics and Gynecology 12/28/20 Parish Strauss MD 40 [place] [address] [email or web address] Insurance Assigned Provider 11/21/23 08/22/24 documented as of this encounter Additional Source Comments The information contained in this document represents components of the legal health record. It is not the complete legal health record.[facility]
--- OUTSIDE RECORDS SUMMARY | 2025-06-01 09:22 | XMS_ITS | Encounter Summary ---
Author Organization [facility] Address [address] [facility] [address] [place] [address] Phone Care Team Providers Care Chef Passenger Vessel Name Role Phone Parish Strauss MD Primary Care Provider Christiano Hargrove MD Unavailable [phone] Craig Porter MD Unavailable [phone] Michelle Kwong MD Unavailable [phone] Parish Strauss MD Unavailable [phone] Encounter Details Date Type Department Care Team (Late st Contact Info) Description 04/20/2024 Procedure Pass [facility] Cardiology Division [address] [facility], [address] [place] [address] Social History Tobacco Use Types Packs/Day Years [...] st Contact Info) Description 12/26/2024 Procedure Pass [facility] Cardiology Division [address] [facility] [address] [facility], [address] [place] [address] 01/26/2025 Procedure Pass [facility] Cardiology Division [address] [place] [address] [facility], [address] [place] [address] 02/24/2025 Procedure Pass [facility] Cardiology Division [address] [place] [address] [facility], [address] [place] [address] 03/29/2025 Procedure Pass [facility] Cardiology Division [address] [place] [address] [facility], [address] [place] [address] 04/28/2025 Procedure Pass [facility] Cardiology Division [address] [facility], [address] [place] [address] 05/30/2025 Procedure Pass [facility] Cardiology Division [address] [place] [facility], [address] [place] [address] 05/30/2025 Procedure Pass [facility] Cardiology Division [address] [place] [address] [facility], [address] [place] [address] 06/28/2025 11:00 AM EST Appointment [facility] Cardiology Division [address] [facility] [address], [address] [place] [address] Sky Castano MD, PhD 55 [facility] 800 [place] [address] [email or web address] 07/29/2025 10:00 AM EST Appointment [facility] Cardiology Division [address] [facility], [address] [place] [address] Sky Castano MD, PhD [address] [place] [address] [email or web address] 08/29/2025 10:00 AM EST Appointment [facility] Cardiology Division [address] [facility], [address] [place] [address] Sky Castano MD, PhD [address] [place] [address] [email or web address] 01/17/2026 9:00 AM EDT Office Visit [facility] Internal Medicine 40 [place] [address] Parish Strauss MD 40 [place], [place] [phone] [email or web address] 03/13/2026 11:30 AM EDT Office Visit [facility] Cardiac Arrhythmia Service [address] [facility], 5th Floor, [address] [place] [address] Charla Darden PA-C [address] [place] [address] [email or web address] documented as of this encounter Visit Diagnoses Not on filedocumented in this encounter Additional Health Concerns Assessment Noted Time PHQ-2 Depression Total Score: 0 03/07/20 24 8:52 AM EDT documented as of this encounter Care Teams Chef Passenger Vessel Relationship Specialty Start Date End Date Parish Strauss MD 40 [place] [address] [email or web address] PCP - General 02/14/14 Christiano Hargrove MD [address] [place] [address] Drive [address] [place] [address] Gastroenterology 01/13/20 Craig Porter MD 100 [facility] 120 [place] [address] [email or web address] Urology 12/28/20 Michelle Kwong MD [address] [place] [address] Drive [address] [place] [address] Obstetrics and Gynecology 12/28/20 Parish Strauss MD [address] [place] [address] [email or web address] Insurance Assigned Provider 11/21/23 08/22/24 documented as of this encounter Additional Source Comments The information contained in this document represents components of the legal health record. It is not the complete legal health record.[facility]
--- OUTSIDE RECORDS SUMMARY | 2025-06-01 09:22 | XMS_ITS | Encounter Summary ---
Author Organization [facility] Address [address] [place] [address] [place] [address] Phone Care Team Providers Care Roll Tester Name Role Phone Parish Strauss MD Primary Care Provider Christiano Hargrove MD Unavailable Craig Porter MD Unavailable [phone] Michelle Kwong MD Unavailable Parish Strauss MD Unavailable Encounter Details Date Type Department Care Team (Late st Contact Info) Description 06/10/2022 Ancillary Orders [facility] Cardiology Division [address] [place] [address], [address] [place] [address] Braulio Sheth MD [address] [place] [address] [address] [place] [address] [email or web address] Cryptogenic stroke Social History Tobacco Use Types Packs/Day Years [...] st Contact Info) Description 12/26/2024 Procedure Pass [facility] Cardiology Division [address] [place] [address], [address] [place] [address] 01/26/2025 Procedure Pass [facility] Cardiology Division [address] [place] [facility], [address] [place] [address] 02/24/2025 Procedure Pass [facility] Cardiology Division [address] [place] [facility], [address] [place] [address] 03/29/2025 Procedure Pass [facility] Cardiology Division [address] [place] [facility], [address] [place] [address] 04/28/2025 Procedure Pass [facility] Cardiology Division [address] [place] [facility], [address] [place] [address] 05/30/2025 Procedure Pass [facility] Cardiology Division [address] [place] [facility], [address] [place] [address] 05/30/2025 Procedure Pass [facility] Cardiology Division [address] [place] [facility], [address] [place] [address] 06/28/2025 11:00 AM EST Appointment [facility] Cardiology Division [address] [place] [facility], [address] [place] [address] Sky Castano MD, PhD [address] [address] [email or web address] 07/29/2025 10:00 AM EST Appointment [facility] Cardiology Division [address] [place] [facility], [address] [place] [address] Sky Castano MD, PhD 55 [facility] 800 [place] [address] [email or web address] 08/29/2025 10:00 AM EST Appointment [facility] Cardiology Division [address] [place] [facility], [address] [place] [address] Sky Castano MD, PhD [address] [place] [address] [place] [address] [email or web address] 01/17/2026 9:00 AM EDT Office Visit [facility] Internal Medicine 40 [place] [address] Parish Strauss MD 40 [place] [address] [email or web address] 03/13/2026 11:30 AM EDT Office Visit [facility] Cardiac Arrhythmia Service 32 [facility], 5th Floor, [address] [place] [address] Charla Darden PA-C [address], [place] [address] [email or web address] documented as of this encounter Visit Diagnoses Diagnosis Cryptogenic stroke documented in this encounter Additional Health Concerns Assessment Noted Time PHQ-2 Depression Total Score: 0 01/15/20 22 9:04 AM EDT documented as of this encounter Care Teams Roll Tester Relationship Specialty Start Date End Date Parish Strauss MD 40 [place] [address] [email or web address] PCP - General 02/14/14 Christiano Hargrove MD [address] [place] [address] Gastroenterology 01/13/20 Craig Porter MD 100 [facility] 120 [place] [address] [email or web address] Urology 12/28/20 Michelle Kwong MD [address] [place] [address] Drive [address] [place] [address] Obstetrics and Gynecology 12/28/20 Parish Strauss MD [address] [place] [address] [email or web address] Insurance Assigned Provider 11/21/23 08/22/24 documented as of this encounter Additional Source Comments The information contained in this document represents components of the legal health record. It is not the complete legal health record.[facility]
--- OUTSIDE RECORDS SUMMARY | 2025-06-01 09:22 | XMS_ITS | Encounter Summary ---
Author Organization [facility] Address [address] [place] [address] [place] [address] Phone Care Team Providers Care Auto Body Detailer Name Role Phone Parish Strauss MD Primary Care Provider [phone] Christiano Hargrove MD Unavailable [phone] Craig Porter MD Unavailable [phone] Michelle Kwong MD Unavailable [phone] Parish Strauss MD Unavailable [phone] Encounter Details Date Type Department Care Team (Late st Contact Info) Description 05/14/2023 Procedure Pass [facility] EP Pacer Lab [address] [facility], Floor 1, Room [address] [place] [address] Social History Tobacco Use Types [...] [address] [place] [facility], [address] [place] [address] 01/26/2025 Procedure Pass [facility] Cardiology Division [address] [place] [facility], [address] [place] [address] 02/24/2025 Procedure Pass [facility] Card[facility] [address] [place] [facility], [address] [place] [address] 03/29/2025 Procedure Pass [facility] Cardiology Division [address] [place] [facility], [address] [place] [address] 04/28/2025 Procedure Pass [facility] Cardiology Division [address] [place] [facility], [address] [place] [address] 05/30/2025 Procedure Pass [facility] Cardiology Division [address] [place] [facility], [address] [place] [address] 05/30/2025 Procedure Pass [facility] Cardiology Division [address] [place] [facility], [address] [place] [address] 06/28/2025 11:00 AM EST Appointment [facility] Cardiology Division [address] [place] [facility], [address] [place] [address] Sky Castano MD, PhD [address] [place] [address] [email or web address] 07/29/2025 10:00 AM EST Appointment [facility] Cardiology Division [address] [place] [facility], [address] [place] [address] Sky Castano MD, PhD [address] [place] [address] 800 [place] [address] [email or web address] 08/29/2025 10:00 AM EST Appointment [facility] Cardiology Division 55 [facility], [address] [place] [address] Sky Castano MD, PhD 55 [facility] 800 [place] [address] [email or web address] 01/17/2026 9:00 AM EDT Office Visit [facility] Internal Medicine 40 [place] [address] Parish Strauss MD 40 [place] [address] [email or web address] 03/13/2026 11:30 AM EDT Office Visit [facility] Cardiac Arrhythmia Service 32 [facility], 5th Floor, [address] [place] [address] Charla Darden PA-C [address] [address] [email or web address] documented as of this encounter Visit Diagnoses Not on filedocumented in this encounter Additional Health Concerns Assessment Noted Time PHQ-2 Depression Total Score: 0 01/21/20 23 8:51 AM EDT documented as of this encounter Care Teams Auto Body Detailer Relationship Specialty Start Date End Date Parish Strauss MD 40 [place] [address] [email or web address] PCP - General 02/14/14 Christiano Hargrove MD [address] [place] [address] Gastroenterology 01/13/20 Craig Porter MD 100 [facility] 120 [place] [address] [email or web address] Urology 12/28/20 Michelle Kwong MD [address] [place] [address] [address] [place] [address] Obstetrics and Gynecology 12/28/20 Parish Strauss MD [address] [place] [address] [email or web address] Insurance Assigned Provider 11/21/23 08/22/24 documented as of this encounter Additional Source Comments The information contained in this document represents components of the legal health record. It is not the complete legal health record.[facility]
--- OUTSIDE RECORDS SUMMARY | 2025-06-01 09:22 | XMS_ITS | Encounter Summary ---
Author Organization [facility] Address [address] [facility] [address] [place] [address] Phone Care Team Providers Care Control Panel Operator Name Role Phone Parish Strauss MD Primary Care Provider Christiano Hargrove MD Unavailable [phone] Craig Porter MD Unavailable [phone] Michelle Kwong MD Unavailable [phone] Parish Strauss MD Unavailable [phone] Encounter Details Date Type Department Care Team (Late st Contact Info) Description 12/11/2021 Procedure Pass [facility] Cardiology Division [address] [facility], [address] [place] [address] Social History Tobacco Use Types Packs/Day Years [...] st Contact Info) Description 12/26/2024 Procedure Pass [facility] Cardiology Division [address] [facility], [address] [place] [address] 01/26/2025 Procedure Pass [facility] Cardiology Division [address] [facility], [address] [place] [address] 02/24/2025 Procedure Pass [facility] Cardiology Division [address] [place] [facility], [address] [place] [address] 03/29/2025 Procedure Pass [facility] Cardiology Division [address] [place] [facility], [address] [place] [address] 04/28/2025 Procedure Pass [facility] Cardiology Division [address] [place] [facility], [address] [place] [address] 05/30/2025 Procedure Pass [facility] Cardiology Division [address] [place] [facility], [address] [place] [address] 05/30/2025 Procedure Pass [facility] Cardiology Division [address] [place] [facility], [address] [place] [address] 06/28/2025 11:00 AM EST Appointment [facility] Cardiology Division [address] [place] [facility], [address] [place] [address] Sky Castano MD, PhD [address] [address] [email or web address] 07/29/2025 10:00 AM EST Appointment [facility] Cardiology Division [address] [place] [facility], [address] [place] [address] Sky Castano MD, PhD [address] [address] [email or web address] 08/29/2025 10:00 AM EST Appointment [facility] Cardiology Division [address] [place] [facility], [address] [place] [address] Sky Castano MD, PhD [address] [address] [email or web address] 01/17/2026 9:00 AM EDT Office Visit [facility] Internal Medicine 40 [place] [address] Parish Strauss MD 40 [place] [address] 03/13/2026 11:30 AM EDT Office Visit [facility] Cardiac Arrhythmia Service [address] [place] [address], 5th Floor, [address] [place] [address] Charla Darden PA-C [address] [place] [address] [email or web address] documented as of this encounter Visit Diagnoses Not on filedocumented in this encounter Additional Health Concerns Assessment Noted Time PHQ-2 Depression Total Score: 0 01/15/20 22 9:04 AM EDT documented as of this encounter Care Teams Control Panel Operator Relationship Specialty Start Date End Date Parish Strauss MD 40 [place] [address] [email or web address] PCP - General 02/14/14 Christiano Hargrove MD [address] [place] [address] Drive [address] [place] [address] Gastroenterology 01/13/20 rCaig Porter MD [address] [place] [address] 120 [place] [address] [email or web address] Urology 12/28/20 Michelle Kwong MD [address] [place] [address] Drive [address] [place] [phone] Obstetrics and Gynecology 12/28/20 Parish Strauss MD 40 [place] [address] [email or web address] Insurance Assigned Provider 11/21/23 08/22/24 documented as of this encounter Additional Source Comments The information contained in this document represents components of the legal health record. It is not the complete legal health record.[facility]
--- OUTSIDE RECORDS SUMMARY | 2025-06-01 09:22 | XMS_ITS | Encounter Summary ---
Author Organization [facility] Address [address] [facility] [address] [place] [address] Phone Care Team Providers Care Manager Strategic Sourcing Name Role Phone Parish Strauss MD Primary Care Provider Christiano Hargrove MD Unavailable [phone] Craig Porter MD Unavailable [phone] Michelle Kwong MD Unavailable [phone] Parish Strauss MD Unavailable [phone] Encounter Details Date Type Department Care Team (Late st Contact Info) Description 06/10/2022 Procedure Pass [facility] Cardiology Division [address] [facility], [address] [place] [address] Social History Tobacco Use Types Packs/Day Years [...] st Contact Info) Description 12/26/2024 Procedure Pass [facility] Cardiology Division [address] [facility], [address] [place] [address] 01/26/2025 Procedure Pass [facility] [place] Cardiology Division [address] [facility], [address] [place] [address] 02/24/2025 Procedure Pass [facility] [place] Cardiology Division [address] [place] [facility], [address] [place] [address] 03/29/2025 Procedure Pass [facility] [place] Cardiology Division [address] [place] [facility], [address] [place] [address] 04/28/2025 Procedure Pass [facility] [place] Cardiology Division [address] [place] [facility], [address] [place] [address] 05/30/2025 Procedure Pass [facility] [place] Cardiology Division [address] [place] [facility], [address] [place] [address] 05/30/2025 Procedure Pass [facility] [place] Cardiology Division [address] [place] [facility], [address] [place] [address] 06/28/2025 11:00 AM EST Appointment [facility] [place] Cardiology Division [address] [place] [address], [address] [place] [address] Sky Castano MD, PhD [address] [address] [email or web address] 07/29/2025 10:00 AM EST Appointment [facility] [place] Cardiology Division [address] [place] [facility], [address] [place] [address] Sky Castano MD, PhD [address] [address] [email or web address] 08/29/2025 10:00 AM EST Appointment [facility] Cardiology Division [address] [place] [facility], [address] [place] [address] Sky Castano MD, PhD [address] [address] [email or web address] 01/17/2026 9:00 AM EDT Office Visit [facility] Internal Medicine 40 [place] [address] Parish Strauss MD 40 [place] [address] 03/13/2026 11:30 AM EDT Office Visit [facility] [place] Cardiac Arrhythmia Service [address] [place] [address], 5th Floor, [address] [place] [address] Charla Darden PA-C [address] [place] [address] [email or web address] documented as of this encounter Visit Diagnoses Not on filedocumented in this encounter Additional Health Concerns Assessment Noted Time PHQ-2 Depression Total Score: 0 01/15/20 22 9:04 AM EDT documented as of this encounter Care Teams Manager Strategic Sourcing Relationship Specialty Start Date End Date Parish Strauss MD 40 [place] [address] [email or web address] PCP - General 02/14/14 Christiano Hargrove MD [address] [place] [address] Drive [address] [place] [address] Gastroenterology 01/13/20 Craig Porter MD [address] [place] [address] 120 [place] [address] [email or web address] Urology 12/28/20 Michelle Kwong MD [address] [place] [address] Drive [address] [place] [address] Obstetrics and Gynecology 12/28/20 Parish Strauss MD 40 [place] [address] [email or web address] Insurance Assigned Provider 11/21/23 08/22/24 documented as of this encounter Additional Source Comments The information contained in this document represents components of the legal health record. It is not the complete legal health record.[facility]
--- OUTSIDE RECORDS SUMMARY | 2025-06-01 09:22 | XMS_ITS | Encounter Summary ---
Author Organization [facility] Address [address] [facility] [address] [place] [address] Phone Care Team Providers Care Director Of Construction Name Role Phone Parish Strauss MD Primary Care Provider [phone] Christiano Hargrove MD Unavailable [phone] Craig Porter MD Unavailable [phone] Michelle Kwong MD Unavailable [phone] Parish Strauss MD Unavailable [phone] Encounter Details Date Type Department Care Team (Late st Contact Info) Description 06/21/2024 Procedure Pass [facility] Card[facility] [address] [facility], [address] [place] [address] Social History Tobacco Use Types Packs/Day Years [...] st Contact Info) Description 12/26/2024 Procedure Pass [facility] Cardiology Division 55 [facility], [address] [place] [address] 01/26/2025 Procedure Pass [facility] Cardiology Division [address] [place] [address] [address] [facility], [address] [place] [address] 02/24/2025 Procedure Pass [facility] Cardiology Division [address] [place] [address]/[facility], [address] [place] [address] 03/29/2025 Procedure Pass [facility] Cardiology [facility] [address] [facility] [address] [facility], [address] [place] [address] 04/28/2025 Procedure Pass [facility] Cardiology [facility] [address] [place] [facility] [address], [address] [place] [address] 05/30/2025 Procedure Pass [facility] Cardiology Division [address] [facility] [address] [facility], [address] [place] [address] 05/30/2025 Procedure Pass [facility] Cardiology Division [address] [facility] [address] [facility], [address] [place] [address] 06/28/2025 11:00 AM EST Appointment [facility] Cardiology Division [address] [facility] [address] [place] [facility] [address], [address] [place] [address] Sky Castano MD, PhD 55 [facility] 800 [place] [address] [email or web address] 07/29/2025 10:00 AM EST Appointment [facility] Cardiology Division [address] [facility], [address] [place] [address] Sky Castano MD, PhD [address] [place] [address] [email or web address] 08/29/2025 10:00 AM EST Appointment [facility] Cardiology Division [address] [facility], [address] [place] [address] Sky Castano MD, PhD [address] [place] [address] [email or web address] 01/17/2026 9:00 AM EDT Office Visit [facility] Internal Medicine 40 [place] [address] Parish Strauss MD 40 [place] [address] [email or web address] 03/13/2026 11:30 AM EDT Office Visit [facility] Cardiac Arrhythmia Service [address] [facility], 5th Floor, [address] [place] [address] Charla Darden PA-C [address] [place] [address] [email or web address] documented as of this encounter Visit Diagnoses Not on filedocumented in this encounter Additional Health Concerns Assessment Noted Time PHQ-2 Depression Total Score: 0 03/07/20 24 8:52 AM EDT documented as of this encounter Care Teams Director Of Construction Relationship Specialty Start Date End Date Parish Strauss MD 40 [place] [address] [email or web address] PCP - General 02/14/14 Christiano Hargrove MD [address] [place] [address] Drive [address] [place], [place] [address] Gastroenterology 01/13/20 Craig Porter MD [address] [place] [address] [email or web address] Urology 12/28/20 Michelle Kwong MD [address] [place] [address] Drive [address] [place] [address] Obstetrics and Gynecology 12/28/20 Parish Strauss MD [address] [place] [address] [email or web address] Insurance Assigned Provider 11/21/23 08/22/24 documented as of this encounter Additional Source Comments The information contained in this document represents components of the legal health record. It is not the complete legal health record.[facility]
--- OUTSIDE RECORDS SUMMARY | 2025-06-01 09:22 | XMS_ITS | Encounter Summary ---
Author Organization [facility] Address [address] [place] [address] Phone Care Team Providers Care Operations Staff Specialist Security Name Role Phone Parish Strauss MD Primary Care Provider Christiano Hargrove MD Unavailable [phone] Craig Porter MD Unavailable [phone] Michelle Kwong MD Unavailable [phone] Parish Strauss MD Unavailable [phone] Encounter Details Date Type Department Care Team (Late st Contact Info) Description 06/10/2022 Procedure Pass [facility] Cardiology Division [address], [address] [place] [address] Social History Tobacco Use Types Packs/Day Years [...] st Contact Info) Description 12/26/2024 Procedure Pass [facility] [address], [address] [place] [address] 01/26/2025 Procedure Pass [facility] Division [address], [address] [place] [address] 02/24/2025 Procedure Pass [facility] Division [address] [facility], [address] [place] [address] 03/29/2025 Procedure Pass [facility] Division [address] [facility], [address] [place] [address] 04/28/2025 Procedure Pass [facility] [address] [facility], [address] [place] [address] 05/30/2025 Procedure Pass [facility] [address] [facility], [address] [place] [address] 05/30/2025 Procedure Pass [facility] Division [address] [facility], [address] [place] [address] 06/28/2025 11:00 AM EST Appointment [facility] [address] [facility], [address] [place] [address] Sky Castano MD, PhD [address] [email or web address] 07/29/2025 10:00 AM EST Appointment [facility] [address] [facility], [address] [place] [address] Sky aCstano MD, PhD [address] [address] [email or web address] 08/29/2025 10:00 AM EST Appointment [facility] [address] [address], [address] [place] [address] Sky Castano MD, PhD [address] [address] [email or web address] 01/17/2026 9:00 AM EDT Office Visit [facility] Internal Medicine [address] [place] [address] Parish Strauss MD 40 [place] [address] 03/13/2026 11:30 AM EDT Office Visit [facility] Cardiac Arrhythmia Service [address] [place] [address], 5th Floor, [address] [place] [address] Charla Darden PA-C [address] [place] [address] [email or web address] documented as of this encounter Visit Diagnoses Not on filedocumented in this encounter Additional Health Concerns Assessment Noted Time PHQ-2 Depression Total Score: 0 01/15/20 22 9:04 AM EDT documented as of this encounter Care Teams Operations Staff Specialist Security Relationship Specialty Start Date End Date Parish Strauss MD 40 [place] [address] [email or web address] PCP - General 02/14/14 Christiano Hargrove MD [address] [place] [address] Drive [address] [place] [address] Gastroenterology 01/13/20 Craig Porter MD [address] [place] [address] [address] [place] [phone] [email or web address] Urology 12/28/20 Michelle Kwong MD [address] [place] [address] Drive [address] [place] [phone] Obstetrics and Gynecology 12/28/20 Parish Strauss MD 40 [place] [address] [email or web address] Insurance Assigned Provider 11/21/23 08/22/24 documented as of this encounter Additional Source Comments The information contained in this document represents components of the legal health record. It is not the complete legal health record.[facility]
--- OUTSIDE RECORDS SUMMARY | 2025-06-01 09:22 | XMS_ITS | Patient Health Record ---
Author Organization [facility] Address [address] [place], [place] [id number] Care Team Providers Care Fiscal Economist Name Role Phone Jasen Dahl Primary Care Provider Unavailabl e Allergies Allergen (clinical drug ingredient) Drug/Non Drug Allergy documented on EMR Reaction Allergy Type Onset Date Status ibuprofen Ibuprofen Unknown Drug Allergy Active lisinopril Lisinopril Unknown Drug Allergy Activ e metoclopramide Reglan Unknown Drug Allergy Ac tive simvastatin Simvastatin Unknown Drug Allergy Act shweta solifenacin VESIcare Unknown Drug Allergy Activ e Reason For Referral No Information Medications Medication SIG (Take, Route, Frequency, Duration) Notes Start Date End Date Status Citalopram & Diet Manage Prod 10 MG Orally Active Flecainide Acetate 50 MG 1 tablet Orally every 12 hrs Active Medrol (Donovan) 4 MG as directed Orally a s directed; Duration: 6 days 11/19/2015 Active Multi For Her 50+ Orally Ac tive Ativan 0.5 MG 1 tablet as needed O rally Twice a day Active Vitamin D 1000 UNIT 1 tablet Orally Once a day Active NexIUM 40 MG 1 capsule Orally Onc e a day Active Calcium 600 MG 1 tablet with meals Orally Twice a day Active Atorvastatin Calcium 20 MG 1 tablet Oral ly Once a day Active Xarelto 20 MG 1 tablet with food O rally Once a day Active Methenamine Hippurate 1 GM 1 tablet Oral ly Twice a day Active oxyBUTYnin Chloride ER 10 MG 1 tablet Orally Once a day Active Premarin 0.625 MG/GM Vaginal Active Flaxseed Oil 1000 MG Orally Active Losartan Potassium 100 MG 1 tablet Orall y Once a day Active Periogard 0.12 % Mouth/Throat Active Plan Of Treatment Pending Test Test Name Order Date X ray : Finger (2-view) - R - Long Finge r 10/09/2014 Insurance Providers Payer Name Payer Address Payer Phone Subscriber Number Group Number Insured Name Patient Relationship to Insured Coverage Start Date Coverage End Date Medicare [place] [address] [place] [phone] [id number] Millie Kimball Self - patient is the insured [facility] [address] [place] [address] [id number] Millie Kimball Self - patient is the insured Medications Administered Medication Instructions Date of Administration Dosage Notes Trigger Injection - Left Long Finger 10/03/2015 10 mg Trigger Injection - Right In dex Finger 10/09/2014 10 mg Trigger Injection - Right Lo ng Finger 10/09/2014 10 mg Trigger Injection - Right Ri ng Finger 10/09/2014 10 mg Left Long PIP Injection 11/19/2015 10 mg Left Thumb IP Joint Injection 10/03/2015 10 mg Medical (General) History Medical History History ICD Code hypertension Blood Thinners Surgical History Surgery Date(Month/Year) Cardiac Hysterectomy Gullbladder
--- OUTSIDE RECORDS SUMMARY | 2025-06-01 09:22 | XMS_ITS | Encounter Summary ---
Author Organization [facility] Address [address] [place] [address] Phone Care Team Providers Care Sales Special Agent Name Role Phone Parish Strauss MD Primary Care Provider [phone] Christiano Hargrove MD Unavailable [phone] Craig Porter MD Unavailable [phone] Michelle Kwong MD Unavailable [phone] Encounter Details Date Type Department Care Team (Late st Contact Info) Description 03/29/2025 Procedure Pass [facility] Cardiology Division [address], [address] [place], [place] [id number] Social History Tobacco Use Types Packs/Day Years [...] [address], [address] [place] [address] 01/26/2025 Procedure Pass [facility] Cardiology Division [address] [address], [address] [place] [address] 02/24/2025 Procedure Pass [facility] Cardiology Division [address] [facility], [address] [place] [address] 03/29/2025 Procedure Pass [facility] Cardiology Division [address] [facility], [address] [place] [address] 04/28/2025 Procedure Pass [facility] Cardiology Division [address] [facility], [address] [place] [address] 05/30/2025 Procedure Pass [facility] Cardiology Division [address] [facility], [address] [place] [address] 05/30/2025 Procedure Pass [facility] Cardiology Division [address], [address] [place] [address] 06/28/2025 11:00 AM EST Appointment [facility] Cardiology Division [address], [address] [place] [address] Sky Castano MD, PhD [address] [address] [place] [address] [email or web address] 07/29/2025 10:00 AM EST Appointment [facility] Cardiology Division [address] [facility], [address] [place] [address] Sky Castano MD, PhD [address] [facility] [address] [place] [address] [email or web address] 08/29/2025 10:00 AM EST Appointment [facility] Cardiology Division [address], [address] [place] [address] Sky Csatano MD, PhD [address] [address] [place] [address] [email or web address] 01/17/2026 9:00 AM EDT Office Visit [facility] Internal Medicine [address] [place] [address] Parish Strauss MD 40 [place] [address] [email or web address] 03/13/2026 11:30 AM EDT Office Visit [facility] Cardiac Arrhythmia Service [address], 5th Floor, [address] [place] [address] Charla Darden PA-C [address] [address] [email or web address] documented as of this encounter Visit Diagnoses Not on filedocumented in this encounter Additional Health Concerns Assessment Noted Time PHQ-2 Depression Total Score: 0 01/14/20 25 8:27 AM EDT documented as of this encounter Care Teams Sales Special Agent Relationship Specialty Start Date End Date Parish Strauss MD [address] [place] [phone] [email or web address] PCP - General 02/14/14 Christiano Hargrove MD [address] [place] [address] [address] [place] [address] Gastroenterology 01/13/20 Craig Porter MD [address] [facility] [address] [place] [address] [email or web address] Urology 12/28/20 Michelle Kwong MD [address] [place] [address] Drive [address] [place] [phone] Obstetrics and Gynecology 12/28/20 documented as of this encounter Additional Source Comments The information contained in this document represents components of the legal health record. It is not the complete legal health record.[facility]
--- OUTSIDE RECORDS SUMMARY | 2025-06-01 09:23 | XMS_ITS | Encounter Summary ---
Author Organization [facility] Address [address] [place] [address] Phone Care Team Providers Care Abe Teacher Name Role Phone Parish Strauss MD Primary Care Provider [phone] Christiano Hargrove MD Unavailable [phone] Parish Strauss MD Unavailable [phone] Craig Porter MD Unavailable [phone] Michelle Kwong MD Unavailable [phone] Parish Strauss MD Unavailable [phone] Encounter Details Date Type Department Care Team (Late st Contact Info) Description 07/31/2021 Procedure Pass [facility] Cardiology Division [address] [facility] [address] [facility], [address] [place] [address] Social History Tobacco Use Types Packs/Day Years [...] st Contact Info) Description 12/26/2024 Procedure Pass [facility] Cardiology Division [address] [facility] [facility], [address] [place] [address] 01/26/2025 Procedure Pass [facility] Cardiology Division [address], [address] [place] [address] 02/24/2025 Procedure Pass [facility] Cardiology Division [address], [address] [place] [address] 03/29/2025 Procedure Pass [facility] Cardiology Division [address], [address] [place] [address] 04/28/2025 Procedure Pass [facility] Cardiology Division [address] [address], [address] [place] [address] 05/30/2025 Procedure Pass [facility] Cardiology Division [address], [address] [place] [address] 05/30/2025 Procedure Pass [facility] Cardiology Division [address], [address] [place] [address] 06/28/2025 11:00 AM EST Appointment [facility] Cardiology Division [address], [address] [place] [address] Sky Castano MD, PhD [address] [address] [email or web address] 07/29/2025 10:00 AM EST Appointment [facility] Cardiology Division [address], [address] [place] [address] Sky Castano MD, PhD [address] [facility] [address] [place] [email or web address] 08/29/2025 10:00 AM EST Appointment [facility] Cardiology Division [address], [address] [place] [address] Sky Castano MD, PhD [address] [facility] [address] [place] [address] [email or web address] 01/17/2026 9:00 AM EDT Office Visit [facility] Internal Medicine 40 [place], [place] [phone] Parish Strauss MD 40 [place] [address] [email or web address] 03/13/2026 11:30 AM EDT Office Visit [facility] Cardiac Arrhythmia Service [address] [place] [address], 5th Floor, [address] [place] [address] Charla Darden PA-C [address] [place] [address] [email or web address] documented as of this encounter Visit Diagnoses Not on filedocumented in this encounter Additional Health Concerns Assessment Noted Time PHQ-2 Depression Total Score: 0 03/09/20 18 3:03 PM EDT documented as of this encounter Care Teams Abe Teacher Relationship Specialty Start Date End Date Parish Strauss MD 40 [place] [address] [email or web address] PCP - General 02/14/14 Christiano Hargrove MD [address] [place] [address] Drive [address] [place], [place] [phone] Gastroenterology 01/13/20 Parish Strauss MD 40 [place] [address] [email or web address] Insurance Assigned Provider 11/24/20 08/24/21 Craig Porter MD [address] [address] [email or web address] Urology 12/28/20 Michelle Kwong MD [address] [place] [address] [address] [place] [address] Obstetrics and Gynecology 12/28/20 Parish Strauss MD [address] [place] [address] [email or web address] Insurance Assigned Provider 11/21/23 08/22/24 documented as of this encounter Additional Source Comments The information contained in this document represents components of the legal health record. It is not the complete legal health record.[facility]
--- OUTSIDE RECORDS SUMMARY | 2025-06-01 09:23 | XMS_ITS | Encounter Summary ---
Author Organization [facility] Address [address] [facility] [address] [place] [address] Phone Care Team Providers Care Package Dyer Name Role Phone Parish Strauss MD Primary Care Provider [phone] Christiano Hargrove MD Unavailable Craig Porter MD Unavailable [phone] Michelle Kwong MD Unavailable [phone] Parish Strauss MD Unavailable [phone] Encounter Details Date Type Department Care Team (Late st Contact Info) Description 03/31/2023 Procedure Pass [facility] [address] [facility], [address] [place] [address] Social History Tobacco Use Types Packs/Day Years [...] st Contact Info) Description 12/26/2024 Procedure Pass [facility] [address] [facility], [address] [place] [address] 01/26/2025 Procedure Pass [facility] [address] [facility], [address] [place] [address] 02/24/2025 Procedure Pass [facility] [address] [facility], [address] [place] [address] 03/29/2025 Procedure Pass [facility] [address] [facility], [address] [place] [address] 04/28/2025 Procedure Pass [facility] Division [address] [facility], [address] [place] [address] 05/30/2025 Procedure Pass [facility] [address] [facility], [address] [place] [address] 05/30/2025 Procedure Pass [facility] [address] [facility], [address] [place] [address] 06/28/2025 11:00 AM EST Appointment [facility] [address] [facility], [address] [place] [address] Sky Castano MD, PhD [address] [place] [address] [email or web address] 07/29/2025 10:00 AM EST Appointment [facility] [address] [facility], [address] [place] [address] Sky Castano MD, PhD [address] [place] [address] [email or web address] 08/29/2025 10:00 AM EST Appointment [facility] [address] [facility], [address] [place] [address] Sky Castano MD, PhD [address] [facility] [address] [place] [address] [email or web address] 01/17/2026 9:00 AM EDT Office Visit [facility] Internal Medicine 40 [place] [address] Parish Strauss MD 40 [place] [address] [email or web address] 03/13/2026 11:30 AM EDT Office Visit [facility]hythmia Service [address] [facility], 5th Floor, [address] [place] [address] Charla Darden PA-C [address], [place] [address] [email or web address] documented as of this encounter Visit Diagnoses Not on filedocumented in this encounter Additional Health Concerns Assessment Noted Time PHQ-2 Depression Total Score: 0 01/21/20 23 8:51 AM EDT documented as of this encounter Care Teams Package Dyer Relationship Specialty Start Date End Date Parish Strauss MD 40 [place] [address] [email or web address] PCP - General 02/14/14 Chirstiano Hargrove MD [address] [place] [address] Gastroenterology 01/13/20 Craig Porter MD [address] [facility] 120 [place] [phone] [email or web address] Urology 12/28/20 Michelle Kwong MD [address] [place] [address] [address] [place] [address] Obstetrics and Gynecology 12/28/20 Parish Strauss MD [address] [place] [address] [email or web address] Insurance Assigned Provider 11/21/23 08/22/24 documented as of this encounter Additional Source Comments The information contained in this document represents components of the legal health record. It is not the complete legal health record.[facility]
--- OUTSIDE RECORDS SUMMARY | 2025-06-01 09:23 | XMS_ITS | Encounter Summary ---
Author Organization [facility] Address [address] [place] [address] [place] [address] Phone Care Team Providers Care Renewable Energy Division Manager Name Role Phone Parish Strauss MD Primary Care Provider [phone] Christiano Hargrove MD Unavailable [phone] Parish Strauss MD Unavailable [phone] Craig Porter MD Unavailable Michelle Kwong MD Unavailable [phone] Parish Strauss MD Unavailable [phone] Encounter Details Date Type Department Care Team (Late st Contact Info) Description 06/24/2019 Procedure Pass [facility] EP Pacer Lab [address] [facility], Floor 1, [address] [place] [address] Social History Tobacco Use Types [...] st Contact Info) Description 12/26/2024 Procedure Pass [facility] Cardiology Division [address] [facility], [address] [place] [address] 01/26/2025 Procedure Pass [facility] Cardiology Division [address], [address] [place] [address] 02/24/2025 Procedure Pass [facility] Cardiology Division [address] [facility], [address] [place] [address] 03/29/2025 Procedure Pass [facility] Cardiology Division [address] [facility], [address] [place] [address] 04/28/2025 Procedure Pass [facility] Cardiology Division [address] [facility], [address] [place] [address] 05/30/2025 Procedure Pass [facility] Cardiology Division [address] [facility], [address] [place] [address] 05/30/2025 Procedure Pass [facility] Cardiology Division [address] [facility], [address] [place] [address] 06/28/2025 11:00 AM EST Appointment [facility] Cardiology Division [address] [facility], [address] [place] [address] Sky Castano MD, PhD [address] [address] [email or web address] 07/29/2025 10:00 AM EST Appointment [facility] Cardiology Division [address] [facility], [address] [place] [address] Sky Castano MD, PhD [facility] [address] [place] [address] [email or web address] 08/29/2025 10:00 AM EST Appointment [facility] Cardiology Division [address] [address], [address] [place] [address] Sky Castano MD, PhD 55 [facility] [address] [place] [address] [email or web address] 01/17/2026 9:00 AM EDT Office Visit [facility] [place] Internal Medicine 40 [place], [place] [phone] Parish Strauss MD 40 [place] [address] 03/13/2026 11:30 AM EDT Office Visit [facility] Cardiac Arrhythmia Service [address] [place] [address], 5th Floor, [address] [place] [address] Charla Darden PA-C [address] [place] [address] [email or web address] documented as of this encounter Visit Diagnoses Not on filedocumented in this encounter Additional Health Concerns Infection Onset Date Last Indicated Resolved Time CoV-Exposed Comment:Recent close contact 06/22/2020 06/22/2020 07/06/2020 1:24 AM EST Assessment Noted Time PHQ-2 Depression Total Score: 0 03/09/20 18 3:03 PM EDT documented as of this encounter Care Teams Renewable Energy Division Manager Relationship Specialty Start Date End Date Parish Strauss MD 40 [place] [address] PCP - General 02/14/14 Christiano Hargrove MD [address] [place] [address] Gastroenterology 01/13/20 Parish Strauss MD 40 [place] [address] [email or web address] Insurance Assigned Provider 11/24/20 08/24/21 Craig Porter MD [address] [place] [address] [email or web address] Urology 12/28/20 Michelle Kwong MD [address] [place] [address] Drive [address] [place] [address] Obstetrics and Gynecology 12/28/20 Parish Strauss MD [address] [place] [address] [email or web address] Insurance Assigned Provider 11/21/23 08/22/24 documented as of this encounter Additional Source Comments The information contained in this document represents components of the legal health record. It is not the complete legal health record.[facility]
--- OUTSIDE RECORDS SUMMARY | 2025-06-01 09:23 | XMS_ITS | Encounter Summary ---
Author Organization [facility] Address [address] [facility] [address] [place] [address] Phone Care Team Providers Care Precision Devices Inspector/Tester Name Role Phone Parish Strauss MD Primary Care Provider [phone] Christiano Hargrove MD Unavailable [phone] Parish Strauss MD Unavailable [phone] Craig Porter MD Unavailable [phone] Michelle Kwong MD Unavailable [phone] Parish Strauss MD Unavailable [phone] Encounter Details Date Type Department Care Team (Late st Contact Info) Description 06/14/2021 Procedure Pass [facility] Cardiology Division [address] [facility], [address] [place] [address] Social History Tobacco Use Types Packs/Day Years [...] st Contact Info) Description 12/26/2024 Procedure Pass [facility] Cardiology Division [address] [facility], [address] [place] [address] 01/26/2025 Procedure Pass [facility] Cardiology Division [address], [address] [place] [address] 02/24/2025 Procedure Pass [facility] Cardiology Division [address] [address], [address] [place] [address] 03/29/2025 Procedure Pass [facility] Cardiology Division [address] [address], [address] [place] [address] 04/28/2025 Procedure Pass [facility] Cardiology Division [address] [address], [address] [place] [address] 05/30/2025 Procedure Pass [facility] Cardiology Division [address], [address] [place] [address] 05/30/2025 Procedure Pass [facility] Cardiology Division [address] [address], [address] [place] [address] 06/28/2025 11:00 AM EST Appointment [facility] Cardiology Division [address] [address], [address] [place] [address] Sky Castano MD, PhD [address] [address] [email or web address] 07/29/2025 10:00 AM EST Appointment [facility] Cardiology Division [address] [address], [address] [place] [address] Sky Castano MD, PhD 55 [facility] [address] [place] [address] [email or web address] 08/29/2025 10:00 AM EST Appointment [facility] Cardiology Division [address], [address] [place] [address] Sky Castano MD, PhD 55 [facility] [address] [place] [address] [email or web address] 01/17/2026 9:00 AM EDT Office Visit [facility] 40 [place], [place] [phone] Parish Strauss MD 40 [place] [address] [email or web address] 03/13/2026 11:30 AM EDT Office Visit [facility] Cardiac Arrhythmia Service [address] [place] [address], 5th Floor, [address] [place] [address] Charla Darden PA-C [address] [place] [address] [email or web address] documented as of this encounter Visit Diagnoses Not on filedocumented in this encounter Additional Health Concerns Assessment Noted Time PHQ-2 Depression Total Score: 0 03/09/20 18 3:03 PM EDT documented as of this encounter Care Teams Precision Devices Inspector/Tester Relationship Specialty Start Date End Date Parish Strauss MD 40 [place] [address] [email or web address] PCP - General 02/14/14 Christiano Hargrove MD [address] [place] [address] Drive [address] [place], [place] [phone] Gastroenterology 01/13/20 Parish Strauss MD 40 [place] [address] [email or web address] Insurance Assigned Provider 11/24/20 08/24/21 Craig Porter MD [address] [address] [email or web address] Urology 12/28/20 Michelle Kwong MD [address] [place] [address] [address] [place] [address] Obstetrics and Gynecology 12/28/20 Parish Strauss MD [address] [place] [address] [email or web address] Insurance Assigned Provider 11/21/23 08/22/24 documented as of this encounter Additional Source Comments The information contained in this document represents components of the legal health record. It is not the complete legal health record.[facility]
--- OUTSIDE RECORDS SUMMARY | 2025-06-01 09:23 | XMS_ITS | Encounter Summary ---
Author Organization [facility] Address [address] [facility] [address] [place] [address] Phone Care Team Providers Care Quality Assurance Supervisor Name Role Phone Parish Strauss MD Primary Care Provider [phone] Christiano Hargrove MD Unavailable [phone] Craig Porter MD Unavailable [phone] Michelle Kwong MD Unavailable [phone] Parish Strauss MD Unavailable [phone] Encounter Details Date Type Department Care Team (Late st Contact Info) Description 03/19/2023 Procedure Pass [facility] Cardiology Division [address] [facility], [address] [place] [address] Social History Tobacco Use Types Packs/Day Years [...] Contact Info) Description 12/26/2024 Procedure Pass [facility] Cardiology Division [address], [address] [place] [address] 01/26/2025 Procedure Pass [facility] Cardiology Division [address], [address] [place] [address] 02/24/2025 Procedure Pass [facility] Cardiology Division [address] [address], [address] [place] [address] 03/29/2025 Procedure Pass [facility] Cardiology Division [address], [address] [place] [address] 04/28/2025 Procedure Pass [facility] Cardiology Division [address] [address], [address] [place] [address] 05/30/2025 Procedure Pass [facility] Cardiology Division [address] [address], [address] [place] [address] 05/30/2025 Procedure Pass [facility] Cardiology Division [address] [address], [address] [place] [address] 06/28/2025 11:00 AM EST Appointment [facility] Cardiology Division [address] [facility], [address] [place] [address] Sky Castano MD, PhD [address] [place] [address] [email or web address] 07/29/2025 10:00 AM EST Appointment [facility] Cardiology Division [address] [facility], [address] [place] [address] Sky Castano MD, PhD [address] [place] [address] [email or web address] 08/29/2025 10:00 AM EST Appointment [facility] Cardiology Division [address] [facility], [address] [place] [address] Sky Castano MD, PhD 55 [facility] [address] [place] [address] [email or web address] 01/17/2026 9:00 AM EDT Office Visit [facility] Internal Medicine 40 [place] [address] Parish Strauss MD 40 [place] [address] [email or web address] 03/13/2026 11:30 AM EDT Office Visit [facility] Cardiac Arrhythmia Service [address] [facility], 5th Floor, [address] [place] [address] Charla Darden PA-C [address] [address] [email or web address] documented as of this encounter Visit Diagnoses Not on filedocumented in this encounter Additional Health Concerns Assessment Noted Time PHQ-2 Depression Total Score: 0 01/21/20 23 8:51 AM EDT documented as of this encounter Care Teams Quality Assurance Supervisor Relationship Specialty Start Date End Date Parish Strauss MD 40 [place] [address] [email or web address] PCP - General 02/14/14 Christiano Hargrove MD [address] [place] [address] Gastroenterology 01/13/20 Craig Porter MD 100 [facility] 120 [place] [phone] [email or web address] 12/28/20 Michelle Kwong MD [address] [place] [address] [address] [place] [address] Obstetrics and Gynecology 12/28/20 Parish Strauss MD [address] [place] [address] [email or web address] Insurance Assigned Provider 11/21/23 08/22/24 documented as of this encounter Additional Source Comments The information contained in this document represents components of the legal health record. It is not the complete legal health record.[facility]
--- OUTSIDE RECORDS SUMMARY | 2025-06-01 09:23 | XMS_ITS | Encounter Summary ---
Author Organization [facility] Address [address] [facility] [address] [place] [address] Phone Care Team Providers Care Buckler And Lacer Name Role Phone Parish Strauss MD Primary Care Provider [phone] Christiano Hargrove MD Unavailable [phone] Craig Porter MD Unavailable [phone] Michelle Kwong MD Unavailable [phone] Parish Strauss MD Unavailable [phone] Encounter Details Date Type Department Care Team (Late st Contact Info) Description 01/24/2022 Procedure Pass [facility] Cardiology Division [address] [facility], [address] [place] [address] Social History Tobacco Use Types Packs/Day Years [...] [facility] [address] [facility], [address] [place] [address] 01/26/2025 Procedure Pass [facility] Cardiology Division [address] [facility], [address] [place] [address] 02/24/2025 Procedure Pass [facility] Cardiology Division [address], [address] [place] [address] 03/29/2025 Procedure Pass [facility] Cardiology Division [address], [address] [place] [address] 04/28/2025 Procedure Pass [facility] Cardiology Division [address] [address], [address] [place] [address] 05/30/2025 Procedure Pass [facility] Cardiology Division [address] [address], [address] [place] [address] 05/30/2025 Procedure Pass [facility] Cardiology Division [address] [address], [address] [place] [address] 06/28/2025 11:00 AM EST Appointment [facility] Cardiology Division [address] [address], [address] [place] [address] Sky Castano MD, PhD [address] [address] [email or web address] 07/29/2025 10:00 AM EST Appointment [facility] Cardiology Division [address] [address], [address] [place] [address] Sky Castano MD, PhD [address] [address] [email or web address] 08/29/2025 10:00 AM EST Appointment [facility] Cardiology Division [address] [address], [address] [place] [address] Sky Castano MD, PhD [address] [address] [email or web address] 01/17/2026 9:00 AM EDT Office Visit [facility] Internal Medicine 40 [place] [address] Parish Strauss MD 40 [place] [address] 03/13/2026 11:30 AM EDT Office Visit [facility] Cardiac Arrhythmia Service [address] [place] [address], 5th Floor, [address] [place] [address] Charla Darden PA-C [address] [place] [address] [email or web address] documented as of this encounter Visit Diagnoses Not on filedocumented in this encounter Additional Health Concerns Assessment Noted Time PHQ-2 Depression Total Score: 0 01/15/20 22 9:04 AM EDT documented as of this encounter Care Teams Buckler And Lacer Relationship Specialty Start Date End Date Parish Strauss MD [address] [place] [address] [email or web address] PCP - General 02/14/14 Christiano Hargrove MD [address] [place] [address] Drive [address] [place] [address] Gastroenterology 01/13/20 Craig Porter MD [address] [place] [address] 120 [place] [phone] [email or web address] Urology 12/28/20 Michelle Kwong MD [address] [place] [address] Drive [address] [place] [address] Obstetrics and Gynecology 12/28/20 Parish Strauss MD [address] [place] [address] [email or web address] Insurance Assigned Provider 11/21/23 08/22/24 documented as of this encounter Additional Source Comments The information contained in this document represents components of the legal health record. It is not the complete legal health record.[facility]
--- OUTSIDE RECORDS SUMMARY | 2025-06-01 09:23 | XMS_ITS | Encounter Summary ---
Author Organization [facility] Address [address] [place] [address] [address] [place] [address] Phone Care Team Providers Care University Professor Name Role Phone Parish Strauss MD Primary Care Provider [phone] Christiano Hargrove MD Unavailable [phone] Parish Strauss MD Unavailable [phone] Craig Porter MD Unavailable [phone] Michelle Kwong MD Unavailable [phone] Parish Strauss MD Unavailable [phone] Encounter Details Date Type Department Care Team (Late st Contact Info) Description 04/29/[address] [facility] Cardiology Division [address] [facility], [address] [place] [address] Social History Tobacco Use Types Packs/Day Years [...] st Contact Info) Description 12/26/[address] [facility] Cardiology Division [address] [facility], [address] [place] [address] 01/26/[address] [facility] Cardiology Division [address], [address] [place] [address] 02/24/[address] [facility] Cardiology Division [address], [address] [place] [address] 03/29/[address] [facility] Cardiology Division [address], [address] [place] [address] 04/28/[address] [facility] Cardiology Division [address] [address], [address] [place] [address] 05/30/[address] [facility] Cardiology Division [address], [address] [place] [address] 05/30/[address] [facility] Cardiology Division [address] [address], [address] [place] [address] 06/28/2025 11:00 AM EST Appointment [facility] Cardiology Division [address] [address], [address] [place] [address] Sky Castano MD, PhD [address] [address] [email or web address] 07/29/2025 10:00 AM EST Appointment [facility] Cardiology Division [address] [address], [address] [place] [address] Sky Castano MD, PhD [address] [facility] [address] [place] [address] [email or web address] 08/29/2025 10:00 AM EST Appointment [facility] Cardiology Division [address], [address] [place] [address] Sky Castano MD, PhD 55 [facility] 800 [place] [address] [email or web address] 01/17/2026 9:00 AM EDT Office Visit [facility] Internal Medicine 40 [place], [place] [phone] Parish Strauss MD 40 [place] [address] [email or web address] 03/13/2026 11:30 AM EDT Office Visit [facility] Cardiac Arrhythmia Service [address] [place] [address], 5th Floor, [address] [place] [address] Charla Darden PA-C [address] [place] [address] [email or web address] documented as of this encounter Visit Diagnoses Not on filedocumented in this encounter Additional Health Concerns Assessment Noted Time PHQ-2 Depression Total Score: 0 03/09/20 18 3:03 PM EDT documented as of this encounter Care Teams University Professor Relationship Specialty Start Date End Date Parish Strauss MD 40 [place] [address] [email or web address] PCP - General 02/14/14 Christiano Hargrove MD [address] [place] [address] [address] [place], [place] [phone] Gastroenterology 01/13/20 Parish Strauss MD 40 [place] [address] [email or web address] Insurance Assigned Provider 11/24/20 08/24/21 Craig Porter MD [address] [address] [email or web address] Urology 12/28/20 Michelle Kwong MD [address] [place] [address] [address] [place] [address] Obstetrics and Gynecology 12/28/20 Parish Strauss MD [address] [place] [address] [email or web address] Insurance Assigned Provider 11/21/23 08/22/24 documented as of this encounter Additional Source Comments The information contained in this document represents components of the legal health record. It is not the complete legal health record.[facility]
--- OUTSIDE RECORDS SUMMARY | 2025-06-01 09:23 | XMS_ITS | Encounter Summary ---
Author Organization [facility] Address [address] [place] [address] Phone Care Team Providers Care Water Analyst Name Role Phone Parish Strauss MD Primary Care Provider [phone] Christiano Hargrove MD Unavailable Parish Strauss MD Unavailable [phone] Craig Porter MD Unavailable [phone] Michelle Kwong MD Unavailable [phone] Parish Strauss MD Unavailable [phone] Encounter Details Date Type Department Care Team (Late st Contact Info) Description 06/24/2019 Ancillary Orders [facility] [address] [place] [address], [address] [place] [address] Braulio Sheth MD [address] [place], [place] [address] [place] [address] [email or web address] Cardiac arrhythmia, unspecified cardiac arrhythmia type Social History Tobacco Use Types Packs/Day Years [...] [address], [address] [place] [address] 01/26/2025 Procedure Pass [facility] [address], [address] [place] [address] 02/24/2025 Procedure Pass [facility] [address] [address], [address] [place] [address] 03/29/2025 Procedure Pass [facility] [address] [address], [address] [place] [address] 04/28/2025 Procedure Pass [facility] [address] [address], [address] [place] [address] 05/30/2025 Procedure Pass [facility] [address] [address], [address] [place] [address] 05/30/2025 Procedure Pass [facility] [address] [address], [address] [place] [address] 06/28/2025 11:00 AM EST Appointment [facility] [address], [address] [place] [address] Sky Castano MD, PhD [address] [place] [email or web address] 07/29/2025 10:00 AM EST Appointment [facility] [address] [address], [address] [place] [address] Sky Castano MD, PhD [address] [place] [email or web address] 08/29/2025 10:00 AM EST Appointment [facility] [address] [place] [address], [address] [place] [address] Sky Castano MD, PhD [address] [place] [address] [email or web address] 01/17/2026 9:00 AM EDT Office Visit [facility] [address] Internal Medicine [address] [place] [address] Parish Strauss MD [address] [place] [address] [email or web address] 03/13/2026 11:30 AM EDT Office Visit [facility] Ar[facility]hythmia Service [address] [facility] 5th [address], [address] [place] [address] Charla Darden PA-C [address] [address] [email or web address] documented as of this encounter Results * DEVICE CHECK: [facility] IN-HOME INTERROGATION (10/20/2020 4:38 PM EST) us Braulio Sheth MD [facility] ORDERABLE S Final Result * DEVICE CHECK: ILR IN-HOME INTERROGATION (09/26/2020 11:56 AM EST) us Braulio Sheth MD [facility] CARDIAC SERVICES ORDERABLE S Final Result * DEVICE CHECK: ILR IN-HOME INTERROGATION (06/19/2020 3:28 PM EST) us Braulio Sheth MD CV CARDIAC SERVICES ORDERABLE S Final Result * DEVICE CHECK: ILR IN-HOME INTERROGATION (05/25/2020 5:50 PM EDT) Result Stefan Sheth MD [facility] CARDIAC SERVICES ORDERABLE S Final Result * DEVICE CHECK: ILR IN-HOME INTERROGATION (05/06/2020 3:18 PM EDT) Result Stefan Sheth MD [facility] CARDIAC SERVICES ORDERABLE S Final Result * DEVICE CHECK: ILR IN-HOME INTERROGATION (02/06/2020 1:56 PM EDT) Result Stefan Sheth MD [facility] CARDIAC SERVICES ORDERABLE S Final Result * DEVICE CHECK: [facility] REMOTE INTERROGATION W/TECH REVIEW (12/21/2019 2:59 PM EDT) Result Stefan Sheth MD [facility] CARDIAC SERVICES ORDERABLE S Final Result * DEVICE CHECK: ILR REMOTE INTERROGATION W/TECH REVIEW (12/06/2019 12:54 PM EDT) Result Stefan Sheth MD CV CARDIAC SERVICES ORDERABLE S Final Result * DEVICE CHECK: ILR REMOTE INTERROGATION W/TECH REVIEW (11/07/2019 12:39 PM EDT) Result Stefan Sheth MD [facility] CARDIAC SERVICES ORDERABLE S Final Result * DEVICE CHECK: ILR REMOTE INTERROGATION W/TECH REVIEW (11/03/2019 2:24 PM EDT) Result Stefan Sheth MD [facility] CARDIAC SERVICES ORDERABLE S Final Result * DEVICE CHECK: ILR REMOTE INTERROGATION W/TECH REVIEW (09/23/2019 10:05 AM EST) Braulio Sheth MD CV CARDIAC SERVICES ORDERABLE S Final Result * DEVICE CHECK: ILR REMOTE INTERROGATION W/TECH REVIEW (08/15/2019 11:29 AM EST) Braulio Sheth MD [facility] CARDIAC SERVICES ORDERABLE S Final Result documented in this encounter Visit Diagnoses Diagnosis Cardiac arrhythmia, unspecified cardiac arrhythmia type documented in this encounter Additional Health Concerns Infection Onset Date Last Indicated Resolved Time CoV-Exposed Comment:Recent close contact 06/22/2020 06/22/2020 07/06/2020 1:24 AM EST Assessment Noted Time PHQ-2 Depression Total Score: 0 03/09/20 18 3:03 PM EDT documented as of this encounter Care Teams Water Analyst Relationship Specialty Start Date End Date Parish Strauss MD [address] [place] [address] [email or web address] PCP - General 02/14/14 Christiano Hargrove MD [address] [place] [address] Gastroenterology 01/13/20 Parish Strauss MD [address] [place] [address] [email or web address] Insurance Assigned Provider 11/24/20 08/24/21 Craig Porter MD [address] [facility] [address] [place] [address] [email or web address] U[facility] 12/28/20 Michelle Kwong MD [address] [place] [address] [address] [place] [address] Obstetrics and Gynecology 12/28/20 Parish Strauss MD [address] [place] [address] [email or web address] Insurance Assigned Provider 11/21/23 08/22/24 documented as of this encounter Additional Source Comments The information contained in this document represents components of the legal health record. It is not the complete legal health record.[facility]
--- OUTSIDE RECORDS SUMMARY | 2025-06-01 09:23 | XMS_ITS | Patient Health Record ---
Author Organization [facility] Address [address] [facility] [address] [place] [address] Care Team Providers Care Employment Clerk Name Role Phone Veronica Santana MD Primary Care Provider Unavail able ANGI JEONG Unavailable [phone] JERALD ELLIOTT Unavailable [phone] Allergies Allergen (clinical drug ingredient) Drug/Non Drug Allergy documented on EMR Reaction Allergy Type Onset Date Status metoclopramide Reglan Unknown Drug Allergy Ac tive ibuprofen Ibuprofen Unknown Drug Allergy Active Reason For Referral No Information Medications Medication SIG (Take, Route, Frequency, Duration) Notes Start Date End Date Status Atorvastatin Calcium 20 MG TAKE 1 TABLET DAILY Oral; Duration: 90 Days Active oxyBUTYnin Chloride ER 15 MG Oral; Duration: 90 Days Acti ve Losartan Potassium 100 MG TAKE 1 TABLET DAILY Oral; Duration: 90 Days Active Metoprolol Succinate ER 25 MG TAKE 1 TABLET DAILY Oral; Duration: 90 Days Active Flecainide Acetate 100 MG TAKE 1 TABLET TWICE A DAY Oral; Duration: 90 Days Active Citalopram Hydrobromide 20 MG TAKE 1 TABLET DAILY Oral; Duration: 90 Days Active Aspirin 81 81 MG 1 tablet Orally Once a day Active NexIUM Active Problems Problem Type SNOMED Code ICD Code Onset Dates Problem Status W/U Status Risk Notes Problem Essential hypertension (39227977) Essential hypertension (I10) Active confirmed Problem Hyperlipidemia (79937783) Hyperlipidemia LDL goal <100 (E78.5) Active confirmed Problem Atrial fibrillation (67025034) PAF (paroxysmal atrial fibrillation) (I48.0) Active confirmed s/p watchman Problem Coronary artery disease (11682529) Coronary artery disease (I25.10) Active confirmed Vital Signs Heart Rate 65 /min 12/09/2024 Blood pressure diastolic 58 mm Hg 12/09/2024 Oximetry 97 % 12/09/2024 Height 61 in 12/09/2024 Blood pressure systolic 110 mm Hg 12/09/2024 Weight 126 lbs 12/09/2024 BMI 23.8 kg/m2 12/09/2024 Encounters Encounter Location Date Provider Diagnosis [facility] Calcium Score [address] [address] 12/03/2024 ANGI JEONG [facility] E[facility] [address] [address] 12/19/2024 ANGI JEONG [facility] [address] [address] 12/09/2024 ANGI JEONG Coronary artery dise ase I25.10 ; Essential hypertension I10 ; Hyperlipidemia LDL goal <100 E78.5 and PAF (paroxysmal atrial fibrillation) I48.0 [facility] PET [address] [address] 12/15/2024 ANGI JEONG [facility] TELEMEDICINE [address] [address] 12/30/2024 JERALD ELLIOTT Coronary artery dise ase I25.10 ; Essential hypertension I10 ; Hyperlipidemia LDL goal <100 E78.5 and PAF (paroxysmal atrial fibrillation) I48.0 [facility] [address] [address] 12/09/2024 ANGI JEONG Assessments Encounter Date Diagnosis (ICD Code) Assessment Notes Treatment Notes Treatment Clinical Notes Section Notes 12/09/2024 Coronary artery disease (ICD-10 - I25.10) Millie comes for initial evaluation of abnormal coronary calcium score 517. She is active and exercise (walking, swimming). Denies any dyspnea, palpitations, but complains of occasional episodes of chest pressure radiating to her jaw lasted for few minutes with and without physical activities. Hx of PAF s/p watchman and ILR (follow-up in [place]). She was called recently possibly from evidence of arrhythmia / VT and requesting a stress testing. I will proceed with PET-CT for assessment of silent ischemia. I will proceed with an ECHO to assess LV function. I will continue let Dr. Cason to follow up with her regular care and cholesterol management. - ECHO - PET-CT (severely elevated calcium score, episodes of possible angina, possibly significant arrhythmia on IR follow-up at [facility] ) - labs before next visit. - we will send reports to her money room supervisor up [facility] Dr Castano [phone] or [phone] - ILR Follow-up up [place] 12/09/2024 Essential hypertension (ICD-10 - I10) Millie comes for initial evaluation of abnormal coronary calcium score 517. She is active and exercise (walking, swimming). Denies any dyspnea, palpitations, but complains of occasional episodes of chest pressure radiating to her jaw lasted for few minutes with and without physical activities. Hx of PAF s/p watchman and ILR (follow-up in [place]). She was called recently possibly from evidence of arrhythmia / VT and requesting a stress testing. I will proceed with PET-CT for assessment of silent ischemia. I will proceed with an ECHO to assess LV function. I will continue let Dr. Cason to follow up with her regular care and cholesterol management. - ECHO - PET-CT (severely elevated calcium score, episodes of possible angina, possibly significant arrhythmia on IR follow-up at [facility] ) - labs before next visit. - we will send reports to her money room supervisor up [facility] Dr Castano [phone] or [phone] - ILR Follow-up up [place] 12/30/2024 Coronary artery disease (ICD-10 - I25.10) Millie is doing well today. She denies any chest pain, palpitations, or shortness of breath. She is active and exercise (walking, swimming). Hx of PAF s/p watchman and ILR (follow-up in [place]). She was called recently possibly from evidence of arrhythmia / VT and requesting a stress testing. Coronary calcium score 517. New PET-CT without ischemia. 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 She will follow this up with [facility] in [place], [place]. I will continue let Dr. Cason to follow up with her regular care and cholesterol management. - continue current cardiovascular meds - aspirin and statin vacation guide - ILR follow up in [facility] - we will send reports to her money room supervisor up [facility] Dr Castano [phone] or [phone] - labs from PCP. LDL target goal less than 70 This encounter was done over video chatting/telemedic ine. Full consent and Acknowledgement was obtained from the patient for assessment, treatment and management of his current condition through this technology. A total of 17 minutes were spent on this encounter for assessment of above medical issues, elaboration of plan, review of data including labs and reports, review of old records and discussion with the patient. Attending attestation note Patient seen, examined and discussed with STAFF PHYSICIAN/PA Agree with above plan and assessment 12/09/2024 Hyperlipidemia LDL goal <100 (ICD-10 - E78.5) Millie comes for initial evaluation of abnormal coronary calcium score 517. She is active and exercise (walking, swimming). Denies any dyspnea, palpitations, but complains of occasional episodes of chest pressure radiating to her jaw lasted for few minutes with and without physical activities. Hx of PAF s/p watchman and ILR (follow-up in [place]). She was called recently possibly from evidence of arrhythmia / VT and requesting a stress testing. I will proceed with PET-CT for assessment of silent ischemia. I will proceed with an ECHO to assess LV function. I will continue let Dr. Cason to follow up with her regular care and cholesterol management. - ECHO - PET-CT (severely elevated calcium score, episodes of possible angina, possibly significant arrhythmia on IR follow-up at [facility] ) - labs before next visit. - we will send reports to her money room supervisor up [place] at [facility] Dr Castano [phone] or [phone] - ILR Follow-up up [place] 12/30/2024 Essential hypertension (ICD-10 - I10) Millie is doing well today. She denies any chest pain, palpitations, or shortness of breath. She is active and exercise (walking, swimming). Hx of PAF s/p watchman and ILR (follow-up in [place]). She was called recently possibly from evidence of arrhythmia / VT and requesting a stress testing. Coronary calcium score 517. New PET-CT without ischemia. 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 She will follow this up with [facility] in [place], [place]. I will continue let Dr. Cason to follow up with her regular care and cholesterol management. - continue current cardiovascular meds - aspirin and statin group home - ILR follow up in [facility] - we will send reports to her money room supervisor [facility] at [facility] Dr Castano [phone] or [phone] - labs from PCP. LDL target goal less than 70 This encounter was done over video chatting/telemedic ine. Full consent and Acknowledgement was obtained from the patient for assessment, treatment and management of his current condition through this technology. A total of 17 minutes were spent on this encounter for assessment of above medical issues, elaboration of plan, review of data including labs and reports, review of old records and discussion with the patient. Attending attestation note Patient seen, examined and discussed with STAFF PHYSICIAN/PA Agree with above plan and assessment 12/30/2024 Hyperlipidemia LDL goal <100 (ICD-10 - E78.5) Millie is doing well today. She denies any chest pain, palpitations, or shortness of breath. She is active and exercise (walking, swimming). Hx of PAF s/p watchman and ILR (follow-up in [place]). She was called recently possibly from evidence of arrhythmia / VT and requesting a stress testing. Coronary calcium score 517. New PET-CT without ischemia. 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 She will follow this up with [facility] in [place], [place]. I will continue let Dr. Cason to follow up with her regular care and cholesterol management. - continue current cardiovascular meds - aspirin and statin vacation guide - ILR follow up in [facility] - we will send reports to her money room supervisor [facility] at [facility] Dr Castano [phone] or [phone] - labs from PCP. LDL target goal less than 70 This encounter was done over video chatting/telemedic ine. Full consent and Acknowledgement was obtained from the patient for assessment, treatment and management of his current condition through this technology. A total of 17 minutes were spent on this encounter for assessment of above medical issues, elaboration of plan, review of data including labs and reports, review of old records and discussion with the patient. Attending attestation note Patient seen, examined and discussed with STAFF PHYSICIAN/PA Agree with above plan and assessment 12/09/2024 PAF (paroxysmal atrial fibrillation) (ICD-10 - I48.0) s/p watchman Millie comes for initial evaluation of abnormal coronary calcium score 517. She is active and exercise (walking, swimming). Denies any dyspnea, palpitations, but complains of occasional episodes of chest pressure radiating to her jaw lasted for few minutes with and without physical activities. Hx of PAF s/p watchman and ILR (follow-up in [place]). She was called recently possibly from evidence of arrhythmia / VT and requesting a stress testing. I will proceed with PET-CT for assessment of silent ischemia. I will proceed with an ECHO to assess LV function. I will continue let Dr. Cason to follow up with her regular care and cholesterol management. - ECHO - PET-CT (severely elevated calcium score, episodes of possible angina, possibly significant arrhythmia on IR follow-up at [facility] ) - labs before next visit. - we will send reports to her money room supervisor up [place] at [facility] Dr Castano [phone] or [phone] - ILR Follow-up up [place] 12/30/2024 PAF (paroxysmal atrial fibrillation) (ICD-10 - I48.0) s/p watchshawn Pinto is doing well today. She denies any chest pain, palpitations, or shortness of breath. She is active and exercise (walking, swimming). Hx of PAF s/p watchman and ILR (follow-up in [place]). She was called recently possibly from evidence of arrhythmia / VT and requesting a stress testing. Coronary calcium score 517. New PET-CT without ischemia. 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 She will follow this up with [facility] in [place], [place]. I will continue let Dr. Cason to follow up with her regular care and cholesterol management. - continue current cardiovascular meds - aspirin and statin group home - ILR follow up in [facility] - we will send reports to her money room supervisor [facility] Dr Castano [phone] or [phone] - labs from PCP. LDL target goal less than 70 This encounter was done over video chatting/telemedic ine. Full consent and Acknowledgement was obtained from the patient for assessment, treatment and management of his current condition through this technology. A total of 17 minutes were spent on this encounter for assessment of above medical issues, elaboration of plan, review of data including labs and reports, review of old records and discussion with the patient. Attending attestation note Patient seen, examined and discussed with STAFF PHYSICIAN/PA Agree with above plan and assessment Plan Of Treatment Pending Test Test Name Order Date EKG Electrocardiogram 12/09/2024 Future Test Test Name Order Date Echocardiogram, complete 12/09/2024 Cardiac PET Scan 12/09/2024 Next Appt Details Provider Name:ANGI Schofield ADENIKE, 07/27/2025 10:00:00 AM, [address], [facility] [address], [place], [address], Insurance Providers Payer Name Payer Address Payer Phone Subscriber Number Group Number Insured Name Patient Relationship to Insured Coverage Start Date Coverage End Date [employer] [place] [employer] [address] [address] [place] [address] [id number] [place]ie Self - patient is the insured Medical (General) History Medical History History ICD Code GERD Venous Insuff/Varicose Veins/Spider Vein s A-Fib A-Flutter Hyperlipidemia Surgical History Surgery Date(Month/Year) Hysterecomy Bilateral Rotator Cuff Lt Knee Replacement Gall bladder Sx
--- OUTSIDE RECORDS SUMMARY | 2025-06-01 09:23 | XMS_ITS | Encounter Summary ---
Author Organization [facility] Address [address] [place] [address] Phone Care Team Providers Care Bulb Grader Name Role Phone Parish Strauss MD Primary Care Provider Christiano Hargrove MD Unavailable [phone] Craig Porter MD Unavailable [phone] Michelle Kwong MD Unavailable [phone] Parish Strauss MD Unavailable [phone] Encounter Details Date Type Department Care Team (Late st Contact Info) Description 09/11/2021 Procedure Pass [facility] [address], [address] [place] [address] Social History Tobacco Use Types Packs/Day Years [...] [facility] [address], [address] [place] [address] 01/26/2025 Procedure Pass [facility] [address], [address] [place] [address] 02/24/2025 Procedure Pass [facility] [address], [address] [place] [address] 03/29/2025 Procedure Pass [facility] [address], [address] [place] [address] 04/28/2025 Procedure Pass [facility] [address], [address] [place] [address] 05/30/2025 Procedure Pass [facility] [address], [address] [place] [address] 05/30/2025 Procedure Pass [facility] [address], [address] [place] [address] 06/28/2025 11:00 AM EST Appointment [facility] [address], [address] [place] [address] Sky Castano MD, PhD [address] [address] [email or web address] 07/29/2025 10:00 AM EST Appointment [facility] [address], [address] [place] [address] Sky Castano MD, PhD [address] [email or web address] 08/29/2025 10:00 AM EST Appointment [facility] [address], [address] [place] [address] Sky Castano MD, PhD [address] [address] [email or web address] 01/17/2026 9:00 AM EDT Office Visit [facility] Internal Medicine [address] [place] [address] Parish Strauss MD [address] [place] [address] 03/13/2026 11:30 AM EDT Office Visit [facility]hythmia Service [address] [place] [address], 5th Floor, [address] [place] [address] Charla Darden PA-C [address] [place] [address] [email or web address] documented as of this encounter Visit Diagnoses Not on filedocumented in this encounter Additional Health Concerns Assessment Noted Time PHQ-2 Depression Total Score: 0 03/09/20 18 3:03 PM EDT documented as of this encounter Care Teams Bulb Grader Relationship Specialty Start Date End Date Parish Strauss MD [address] [place] [address] [email or web address] PCP - General 02/14/14 Christiano Hargrove MD [address] [place] [address] Drive [address] [place] [address] Gastroenterology 01/13/20 Craig Porter MD [address] [place] [address] [address] [place] [id number] [email or web address] Urology 12/28/20 Michelle Kwong MD [address] [place] [address] Drive [address] [place] [phone] Obstetrics and Gynecology 12/28/20 Parish Struass MD [address] [place] [address] [email or web address] Insurance Assigned Provider 11/21/23 08/22/24 documented as of this encounter Additional Source Comments The information contained in this document represents components of the legal health record. It is not the complete legal health record.[facility]
--- OUTSIDE RECORDS SUMMARY | 2025-06-01 09:23 | XMS_ITS | Encounter Summary ---
Author Organization [facility] Address [address] [place] [address] Phone Care Team Providers Care Undergraduate Advisor Name Role Phone Parish Strauss MD Primary Care Provider Christiano Hargrove MD Unavailable [phone] Craig Porter MD Unavailable [phone] Michelle Kwong MD Unavailable [phone] Parish Strauss MD Unavailable [phone] Encounter Details Date Type Department Care Team (Late st Contact Info) Description 10/28/2021 Procedure Pass [facility] Cardiology Division [address], [address] [place] [address] Social History Tobacco Use Types Packs/Day Years [...] st Contact Info) Description 12/26/2024 Procedure Pass [facility] Cardiology Division [address], [address] [place] [address] 01/26/2025 Procedure Pass [facility] Cardiology Division [address], [address] [place] [address] 02/24/2025 Procedure Pass [facility] Cardiology Division [address], [address] [place] [address] 03/29/2025 Procedure Pass [facility] Cardiology Division [address], [address] [place] [address] 04/28/2025 Procedure Pass [facility] Cardiology Division [address], [address] [place] [address] 05/30/2025 Procedure Pass [facility] Cardiology Division [address], [address] [place] [address] 05/30/2025 Procedure Pass [facility] Cardiology Division [address], [address] [place] [address] 06/28/2025 11:00 AM EST Appointment [facility] Cardiology Division [address], [address] [place] [address] Sky Castano MD, PhD [address] [address] [email or web address] 07/29/2025 10:00 AM EST Appointment [facility] Cardiology Division [address], [address] [place] [address] Sky Castano MD, PhD [address] [address] [email or web address] 08/29/2025 10:00 AM EST Appointment [facility] Cardiology Division [address], [address] [place] [address] Sky Castano MD, PhD [address] [address] [email or web address] 01/17/2026 9:00 AM EDT Office Visit [facility] Internal Medicine [address] [place] [address] Parish Strauss MD [address] [place] [address] 03/13/2026 11:30 AM EDT Office Visit [facility] Cardiac Arrhythmia Service [address] [place] [address], 5th Floor, [address] [place] [address] Charla Darden PA-C [address] [place] [address] [email or web address] documented as of this encounter Visit Diagnoses Not on filedocumented in this encounter Additional Health Concerns Assessment Noted Time PHQ-2 Depression Total Score: 0 03/09/20 18 3:03 PM EDT documented as of this encounter Care Teams Undergraduate Advisor Relationship Specialty Start Date End Date Parish Strauss MD [address] [place] [address] [email or web address] PCP - General 02/14/14 Christiano Hargrove MD [address] [place] [address] Drive [address] [place] [address] Gastroenterology 01/13/20 Craig Porter MD [address] [place] [address] [address] [place] [phone] [email or web address] Urology 12/28/20 Michelle Kwong MD [address] [place] [address] Drive [address] [place] [phone] Obstetrics and Gynecology 12/28/20 Parish Strauss MD [address] [place] [address] [email or web address] Insurance Assigned Provider 11/21/23 08/22/24 documented as of this encounter Additional Source Comments The information contained in this document represents components of the legal health record. It is not the complete legal health record.[facility]
--- OUTSIDE RECORDS SUMMARY | 2025-06-01 09:23 | XMS_ITS | Encounter Summary ---
Author Organization [facility] Address [address] [place] [address] Phone Care Team Providers Care Chief Of Service Name Role Phone Parish Strauss MD Primary Care Provider [phone] Christiano Hargrove MD Unavailable [phone] Parish Strauss MD Unavailable [phone] Craig Porter MD Unavailable [phone] Michelle Kwong MD Unavailable [phone] Parish Strauss MD Unavailable [phone] Encounter Details Date Type Department Care Team (Late st Contact Info) Description 06/19/2020 Procedure Pass [facility] [address], [address] [place] [address] Social History Tobacco Use Types Packs/Day Years [...] st Contact Info) Description 12/26/2024 Procedure Pass [facility] [address], [address] [place] [address] 01/26/2025 Procedure Pass [facility] [address], [address] [place] [address] 02/24/2025 Procedure Pass [facility] [address], [address] [place] [address] 03/29/2025 Procedure Pass [facility] [address], [address] [place] [address] 04/28/2025 Procedure Pass [facility] [address], [address] [place] [address] 05/30/2025 Procedure Pass [facility] [address], [address] [place] [address] 05/30/2025 Procedure Pass [facility] [address], [address] [place] [address] 06/28/2025 11:00 AM EST Appointment [facility] [address], [address] [place] [address] Sky Castano MD, PhD [address] [address] [email or web address] 07/29/2025 10:00 AM EST Appointment [facility] [address], [address] [place] [address] Sky Castano MD, PhD [address] [facility] [address] [place] [address] [email or web address] 08/29/2025 10:00 AM EST Appointment [facility] [address], [address] [place] [address] Sky Castano MD, PhD [address] [facility] [address] [place] [address] [email or web address] 01/17/2026 9:00 AM EDT Office Visit [facility] [place] Internal Medicine [address] [place], [place] [phone] Parish Strauss MD [address] [place], [place] [address] 03/13/2026 11:30 AM EDT Office Visit [facility]ia Service [address] [place] [address], 5th Floor, [address] [place] [address] Charla Darden PA-C [address] [place] [address] [email or web address] documented as of this encounter Visit Diagnoses Not on filedocumented in this encounter Additional Health Concerns Infection Onset Date Last Indicated Resolved Time CoV-Exposed Comment:Recent close contact 06/22/2020 06/22/2020 07/06/2020 1:24 AM EST Assessment Noted Time PHQ-2 Depression Total Score: 0 03/09/20 18 3:03 PM EDT documented as of this encounter Care Teams Chief Of Service Relationship Specialty Start Date End Date Parish Strauss MD [address] [place] [address] PCP - General 02/14/14 Christiano Hargrove MD [address] [place] [address] Gastroenterology 01/13/20 Parish Srtauss MD [address] [place] [address] [email or web address] Insurance Assigned Provider 11/24/20 08/24/21 Craig Porter MD [address] [address] [email or web address] Urology 12/28/20 Michelle Kwong MD [address] [place] [address] Drive [address] [place] [address] Obstetrics and Gynecology 12/28/20 Parish Strauss MD [address] [place] [address] [email or web address] Insurance Assigned Provider 11/21/23 08/22/24 documented as of this encounter Additional Source Comments The information contained in this document represents components of the legal health record. It is not the complete legal health record.[facility]
== END 2025-06-01 09:19 | disposition home or self-care (01) ==
LOC: HO.HCS 08:39
PROVIDERS: PCP Internal Medicine; Visit Provider Internal Medicine Cardiovascular Disease
DX: I48.0 Paroxysmal atrial fibrillation (principal); I10 Essential (primary) hypertension
CPT/HCPCS: 93010; 99214; G2211

== ENCOUNTER → 2025-06-01 08:38 | Outpatient (BNVA) | payer MEDICARE, SELFPAY | PROVIDERS: PCP Internal Medicine; Visit Provider Internal Medicine Cardiovascular Disease | DX: I48.0 Paroxysmal atrial fibrillation (principal); I10 Essential (primary) hypertension; I49.1 Atrial premature depolarization; R00.1 Bradycardia, unspecified | CPT/HCPCS: 93005; 99212 ==